=== PATIENT | male | born 1965 | race Caucasian/White ===

== ENCOUNTER 2020-01-09 11:27 | Outpatient (REF) | payer OTHER, SELFPAY ==
--- NOTE | 2020-01-09 12:06 | US_ITS ---
EXAMINATION: US RETROPERITONEAL LIMITED (RENAL ONLY) CLINICAL INFORMATION: Flank pain. COMPARISON: None TECHNIQUE: Real-time imaging of the kidneys. FINDINGS: RIGHT KIDNEY: 12.8 x 5.7 x 7.8 cm (SAG x AP x TRV). The kidney is normal in size, contour, and echogenicity. Renal cortical thickness is normal. No calculi or focal parenchymal lesions. No hydronephrosis. LEFT KIDNEY: 13.5 x 5.8 x 6.2 cm (SAG x AP x TRV). The kidney is normal in size, contour, and echogenicity. Renal cortical thickness is normal. No calculi or focal parenchymal lesions. No hydronephrosis. US/US renal BI IMPRESSION: Unremarkable renal ultrasound.
[2020-01-09 14:29] LABS: MANUAL DIFF FLAG NO
[2020-01-09 14:35] LABS: Basophils Percent Auto 0.3 % (0-2); Eosinophils Absolute Auto 0.2 X10*3/uL (0.0-0.4); Hematocrit 42.8 % (42-52); Hemoglobin 14.2 g/dl (14.0-18.0); Imm Gran Abs Auto 0.04 X10*3/uL (0.00-0.03); Imm Gran Pct Auto 0.4 % (0.0-0.4); Lymphocytes Absolute Auto 2.5 X10*3/uL (1.2-4.9); Lymphocytes Percent Auto 23.3 % (20-40); Mean Corpuscular HGB Conc 33.2 g/dl (31.0-36.0); Mean Corpuscular Hemoglobin 29.5 pg (27.0-33.0); Mean Corpuscular Volume 88.8 fL (80-98); Mean Platelet Volume 11.3 fL (9.4-12.4); Monocytes Absolute Auto 0.6 X10*3/uL (0.1-1.2); Monocytes Percent Auto 5.2 % (2-11); Neutrophils Absolute Auto 7.3 X10*3/uL (2.0-8.3); Neutrophils Percent Auto 68.8 % (45-73); Platelet Count 291 X10*3/uL (160-400); Red Blood Count 4.82 X10*6/uL (4.60-5.80); Red Cell Distribution Width 12.2 % (11.0-16.0); White Blood Count 10.6 X10*3/uL (4.8-10.8)
[2020-01-09 15:12] LABS: Anion Gap 15 (12-20); Blood Urea Nitrogen 13 mg/dL (9-16); Calcium 8.3 mg/dL (8.4-10.2); Carbon Dioxide 26 mmol/L (22-29); Chloride 102 mmol/L (96-108); Estimated Glomerular Filt Rate > 60; Glucose Random 133 mg/dL (60-115); Potassium 3.5 mmol/l (3.3-5.1); Sodium 139 mmol/L (135-145)
== END 2020-01-09 11:28 | disposition home or self-care (01) ==
LOC: HO.HMGCX 11:27
PROVIDERS: PCP Nurse Practitioner Family; Visit Provider Nurse Practitioner Family
DX: R10.9 Unspecified abdominal pain (principal)
CPT/HCPCS: 36415; 76775; 80048; 85025

== ENCOUNTER 2020-02-08 07:22 | Day surgery (SDC) | payer OTHER, SELFPAY ==
[2020-01-30 14:44] VITALS: BMI 41.5
--- NOTE | 2020-02-07 09:21 | HO.ANESPROP2 ---
Documented by User: Meryl Felix 02/14/20 15:32 HPI - Anesthesia Eval Consult details Narrative: 54yo M for Upper Endoscopy with Balloon Dilitation PMFSH Past Medical History Medical History (Updated 02/08/20 @ 18:11 by Cliff Pace MD) GERD (gastroesophageal reflux disease) Hx of chemical exposure Hx of tinnitus NORMA (obstructive sleep apnea) Restrictive lung disease secondary to obesity Surgical History Surgical History History of shoulder surgery Hx of adenoidectomy Social History Social History Smoking Status: Former smoker Substance Use Type: Marijuana Meds Allergies Allergy/AdvReac Type Severity Reaction Status Date / Time No Known Allergies Allergy Verified 02/08/20 07:43 Home Medications Medication Instructions Recorded Confirmed Type cholecalciferol (vitamin D3) 50 50 mcg PO DAILY 12/28/19 01/30/20 History mcg (2,000 unit) tablet Exam Exam Date and Time: February 07, 2020 0921 Height,Weight and Vital Signs: Height 5 ft 11 in Weight 135.171 kg Pertinent Lab Results Pertinent Lab Results: Laboratory Tests 01/09/20 01/09/20 11:46 11:46 WBC 10.6 Hgb 14.2 Hct 42.8 Plt Count 291 Sodium 139 Potassium 3.5 Chloride 102 Carbon Dioxide 26 BUN 13 Creatinine 0.74 Assessment and Plan Assessment Anesthesia Assessment: Chart Reviewed Documented by User: Froilan Rodriguez CRNA 02/08/20 07:56 PMFSH Past Medical History Medical History (Updated 02/08/20 @ 18:11 by Cliff Pace MD) GERD (gastroesophageal reflux disease) Hx of chemical exposure Hx of tinnitus NORMA (obstructive sleep apnea) Restrictive lung disease secondary to obesity Surgical History Surgical History History of shoulder surgery Hx of adenoidectomy Social History Social History Smoking Status: Former smoker Substance Use Type: Marijuana Meds Allergies Allergy/AdvReac Type Severity Reaction Status Date / Time No Known Allergies Allergy Verified 02/08/20 07:43 Home Medications Medication Instructions Recorded Confirmed Type cholecalciferol (vitamin D3) 50 50 mcg PO DAILY 12/28/19 01/30/20 History mcg (2,000 unit) tablet Assessment and Plan Assessment Anesthesia Assessment: Anesthesia Plan Discussed and Chart Reviewed Final Anesthetic Review NPO: Yes ASA Class: III Final Preanesthetic Review: No Changes in Pt Med Stat, Meds/Allgs Chart Reviewed, Consent Obtained/Reviewed and Anes Risks/Benef Reviewed Patient Risk: Intermediate Procedure Risk: Low Anesthetic Plan Anesthetic Plan: MAC: Disposition: Standard PACU
[2020-02-08 07:37] VITALS: BP 138/74; PULSE 60; RESP 20; TEMP 35.7; O2SAT 96
[2020-02-08] MEDS: Lactated Ringers 1,000 ML 100 ML IVCONT (07:54)
--- NOTE | 2020-02-08 08:18 | P.CONAN_ITS ---
FORMERLY [facility], LATER [facility] Past Medical History Medical History GERD (gastroesophageal reflux disease) Hx of chemical exposure Hx of tinnitus NORMA (obstructive sleep apnea) Restrictive lung disease secondary to obesity Surgical History Surgical History History of shoulder surgery Hx of adenoidectomy Social History Social History Are you a primary patient care provider to a significant other at home: No Do you presently have visiting nurse or other home services: No Smoking Status: Former smoker Smoking Quit Date: 2011 Use of substances other than those prescribed or required for medical reasons: Yes Substance Use Type: Marijuana Substance Use Type Other:: Vapes Substance Use Frequency: Occasionally Have you been hit, kicked, punched, or otherwise hurt by someone within the past year? If so, by whom?: No Advance Directives: No Advance Directives Information Provided: No Advance Directives on File: No Recently lost weight without trying: No Meds Allergies Allergy/AdvReac Type Severity Reaction Status Date / Time No Known Allergies Allergy Verified 02/08/20 07:43 Home Medications Medication Instructions Recorded Confirmed Type cholecalciferol (vitamin D3) 50 50 mcg PO DAILY 12/28/19 01/30/20 History mcg (2,000 unit) tablet Exam Exam Date and Time: February 08, 2020 0818 Height,Weight and Vital Signs: Height 5 ft 11 in Weight 135.171 kg Last Vital Signs Temp 96.2 F L 02/08/20 07:37 Pulse 60 02/08/20 07:37 Resp 20 02/08/20 07:37 BP 138/74 02/08/20 07:37 Pulse Ox 96 02/08/20 07:37 Airway Mallampati Class: II TM Dist: >3cm Neck ROM: Full Denture: Upper Heart: RRR Lungs: CTA
--- NOTE | 2020-02-08 08:42 | MHC.SHP ---
Pre-Procedural Eval Section B Chief Complaint: gerd Relevant Social History: Other (specify) (THC) Present Medications: see Short Stay Collaborative assessment Medical History: Significant History (GERD (gastroesophageal reflux disease) Hx of chemical exposure Hx of tinnitus NORMA (obstructive sleep apnea) Restrictive lung disease secondary to obesity) History of Previous Operations: Relevant previous surgery/procedure and date(s) (adenoids) Allergies: Allergies Allergy/AdvReac Type Severity Reaction Status Date / Time No Known Allergies Allergy Verified 02/08/20 07:43 Review of Systems Sugical H&P ROS: Negative: Constitution, Cardiovascular, Respiratory, Neurological, Psychiatric, Hem-Onc, Allergic/Immunologic, Gastrointestinal, Genitourinary, Musculoskeletal, Integumentary, Endocrine and Eyes/Ears/Nose/Throat Exam Surgical H&P Exam: Normal: HEENT, Normal: Heart, Normal: Lungs, Normal: Extremities, Normal: Abdomen, Normal: Skin and Normal: Neurological Plan Diagnosis/Plan: Unchanged I have reviewed the history and physical and performed a pertinent physical examination on my patient. No changes have occurred unless specified.
--- NOTE | 2020-02-08 08:44 | PM.OP ---
Brief Operative Note Date of Service: 02/08/20 Post-op diagnosis: same Procedure: Procedure Description: EGD FLEXIBLE TRANSORAL UPPER GASTROINTESTINAL ENDOSCOPY UPPER ENDOSCOPY Consent: Indications for the procedure and potential complications of bleeding, perforation, reaction to medications and missed diagnosis were discussed with the patient and informed consent was obtained. Instrument: Olympus GIF H 190 J mid size upper endoscope Monitoring: Vital signs and clinical assessment, continuous EKG monitoring, Pulse oximetry, Carbon Dioxide monitoring and blood pressure monitoring were done throughout the procedure. Procedure: The patient was placed in the left lateral decubitis position and pre-procedure medications were administered and a bite block was placed. The endoscope was inserted into the mouth and advanced under direct vision to the third part of duodenum. A careful inspection was made as the upper endoscope was withdrawn including a retroflexed examination of the proximal stomach; Findings and interventions are described below. Findings: Larynx:normal Esophagus: GE junction at 43 cm, diaphragm hiatus at 43 cm, LA grade B esophagitis noted, with erythema at GEJ and singular short linear erosion. 20 mm balloon dilated at LES and UES due to dysphagia and mid esophagus, no tears noted. Stomach: Mild erythema. Grade III flap valve on retroflexed examination of the cardia. V lax which pre disposes to his reflux Duodenum: Normal bulb and descending duodenum, Intervention: Biopsies as noted above, balloon dilation Impression/Findings: esophagitis, prob causing his sx PLAN: 1/ maximize anti acid medication, can add famotidine at night with the PPI during the day 2/ reflux precautions 3/ Surgery is his best option but unfortunately he is unable to do the pH impedance and manometry testing required by surgery Surgeon: Cliff Pace MD Anesthesia: MAC Estimated blood loss (mL): 0 Condition: stable Disposition: PACU
[2020-02-08 09:08] VITALS: BP 114/70; PULSE 84; RESP 16; TEMP 36.4; O2SAT 97
[2020-02-08 09:23] VITALS: BP 124/56; PULSE 63; RESP 13; TEMP 36.4; O2SAT 97
--- NOTE | 2020-02-08 09:51 | HO.POSTANES ---
Post Anesthesia Evaluation Post Anesthesia Evaluation Vital Signs: Vital Signs Temp Pulse Resp BP Pulse Ox 02/08/20 09:23 97.6 F 63 13 124/56 L 97 02/08/20 09:08 97.6 F 84 16 114/70 97 02/08/20 07:37 96.2 F L 60 20 138/74 96 Anesthesia: Monitored Mental Status: Awake Pain Control: Satisfactory Nausea/Vomiting: None Hydration: Adequate Anesthesia-Related Issues: No Anes. Related Issues
== END 2020-02-08 09:51 | disposition home or self-care (01) ==
PROVIDERS: PCP Nurse Practitioner Family; Visit Provider Internal Medicine Gastroenterology
PROC: (CPT 43249; principal; 2020-02-08 08:30)
DX: K21.9 Gastro-esophageal reflux disease without esophagitis (principal); R13.10 Dysphagia, unspecified; K20.90 Esophagitis, unspecified without bleeding; K44.9 Diaphragmatic hernia without obstruction or gangrene; G47.33 Obstructive sleep apnea (adult) (pediatric); J98.4 Other disorders of lung; Z87.891 Personal history of nicotine dependence; E66.9 Obesity, unspecified; F12.90 Cannabis use, unspecified, uncomplicated; Z79.899 Other long term (current) drug therapy
CPT/HCPCS: 43249; 43239; 88305; C1726; J3010

== ENCOUNTER → 2020-04-09 14:26 | Outpatient (BNVA) | payer OTHER, SELFPAY | PROVIDERS: PCP Nurse Practitioner Family; Visit Provider Internal Medicine Gastroenterology ==

== ENCOUNTER 2020-05-11 15:21 | Outpatient (REF) | payer OTHER, SELFPAY ==
--- NOTE | ~2020-05-11 | XR_ITS ---
EXAMINATION: XR KNEE, LEFT CLINICAL INFORMATION: Pain in the left knee COMPARISON: None TECHNIQUE: Four views of the left knee. FINDINGS: There is no fracture. No dislocation. No joint effusion. There is mild joint narrowing of the medial femoral tibial joint. Minimal periventricular spur of the tibia at the lateral femoral tibial joint and the lateral side of the joint. Patellofemoral joint is normal. No bone erosions. No soft tissue calcification. XR/XR knee LT 4V IMPRESSION: 1. No acute abnormality. 2. 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
== END 2020-05-11 15:22 | disposition home or self-care (01) ==
LOC: HO.HMGCX 15:21
PROVIDERS: PCP Nurse Practitioner Family; Visit Provider Hospitalist
DX: M25.562 Pain in left knee (principal)
CPT/HCPCS: 73564

== ENCOUNTER 2020-08-05 03:53 | Inpatient (IN) | payer OTHER, SELFPAY ==
[2020-08-05] VITALS (8 sets, daily range): BP systolic 116–149; BP diastolic 47–76; PULSE 65–100; RESP 10–23; TEMP 36.6–37.2; O2SAT 90–97; BMI 42.0
--- NOTE | ~2020-08-05 | CT_ITS ---
EXAMINATION: CT CHEST WITHOUT CONTRAST CT ABDOMEN AND PELVIS WITHOUT CONTRAST CLINICAL INFORMATION: hematemesis, r/o boerhaave COMPARISON: No pertinent prior studies are available for comparison. TECHNIQUE: Multidetector volumetric imaging was performed from the thoracic inlet through the pubic symphysis without intravenous contrast. Sagittal and coronal images were reformatted. This CT examination was performed using dose optimization techniques as appropriate, variously including the following: *Automated exposure control *Adjustment of mA and/or kV according to patient size (this includes techniques or standardized protocols for targeted exams where dose is matched to indication/reason for exam; i.e. extremities or head) *Use of iterative reconstruction technique DOSE: 1693 mGy-cm FINDINGS: -CHEST- LUNG: Patchy areas of airspace consolidation are present in the right long a batwing distribution surrounding the central bronchovascular structures. Central airways and bronchi are clear. No bronchiectasis. Left lung is clear. No discrete pulmonary nodules. No interstitial opacities. MEDIASTINUM: The mediastinum in normal. The central vascular structures are unremarkable. No hilar or mediastinal lymphadenopathy. PERICARDIUM/PLEURA: No significant effusion. No pleural mass or thickening. CHEST WALL/AXILLA: There is a small amount of fluid within the esophagus. No appreciable esophageal wall thickening. No surrounding mediastinal fluid or gas to indicate esophageal injury. -ABDOMEN/PELVIS- LIVER, GALLBLADDER, BILIARY TREE: Relative hypoattenuation of the hepatic parenchyma is consistent with steatosis. Focal sparing is noted on the gallbladder fossa. Mild hepatomegaly. Liver is normal in contour. No biliary ductal dilatation . PANCREAS: Normal; no mass or surrounding fluid. SPLEEN: Normal size. No focal lesion. ADRENAL GLANDS: There is a 3.8 cm left adrenal lesion with macroscopic fat, most consistent with a myolipoma. A 4.9 cm mixed fat and soft tissue density lesion is present within the right adrenal gland, also consistent with a myolipoma. KIDNEYS AND URETERS: At the medial margin of the right lower renal pole, there is an exophytic 1.7 cm nodule which is the same density as the renal cortex and warrants further evaluation. The kidneys are normal in size, shape, and attenuation. No hydronephrosis, hydroureter, or calculi seen. No perinephric stranding. BLADDER: Unremarkable. GASTROINTESTINAL TRACT: Stomach, small bowel, and colon are normal in caliber. No bowel wall thickening or surrounding inflammatory changes. Appendix is normal. No intraperitoneal free fluid or free air. ABDOMINAL WALL: No significant hernia is appreciated. VASCULATURE: Atherosclerotic calcifications are present in the iliac arteries. No aneurysmal dilatation. LYMPH NODES: No lymphadenopathy. . PELVIC VISCERA: Small dystrophic central calcifications. Prostate gland is normal in size. OSSEUS STRUCTURES: Mild to moderate degenerative disc disease in the lumbar spine. No acute fracture or malalignment. Mild osteoarthritis in the hips. Sclerotic foci within the trochanteric regions of the femur is most likely correspond to bone islands. CT/CT abdomen pelvis wo con IMPRESSION: Patchy multifocal airspace opacities throughout the right lung in a central distribution, potentially corresponding to pneumonia. A unilateral cause of pulmonary alveolar hemorrhage could also produce this appearance. No appreciable intraluminal opacities are identified within the bronchi. No evidence of Boerhaave's syndrome. Trace fluid within the esophagus. Hepatic steatosis. Bilateral adrenal myelolipomas, measuring up to 4.9 cm in diameter on the right. Surgical consultation is advised based on size. Consider biochemical lab evaluation for functional status and pheochromocytoma prior to potential resection. A 1.7 cm exophytic intermediate density right renal lesion. Recommend follow-up MRI with and without contrast for further assessment.
--- NOTE | 2020-08-05 04:33 | ECG_ITS ---
Test Reason : ABD PAIN Blood Pressure : / mmHG Vent. Rate : 088 BPM Atrial Rate : 088 BPM P-R Int : 152 ms QRS Dur : 112 ms QT Int : 374 ms P-R-T Axes : 048 048 044 degrees QTc Int : 452 ms Normal sinus rhythm Incomplete right bundle branch block Borderline ECG No previous ECGs available Referred By: Sinai Barnhart Electronically Signed By:Gamal Parkinson
--- NOTE | 2020-08-05 04:38 | ED_ITS ---
HPI - General Adult General Chief complaint: GI Bleed Stated complaint: Abdominal Pain/Vomiting Blood Time Seen by Provider: 08/05/20 04:27 Source: patient Mode of arrival: ambulatory Limitations: no limitations History of Present Illness HPI narrative: patient comes emergency room complaining of abdominal pressure and vomiting blood and coughing blood. Patient states that around midnight he started vomiting blood. Patient states he has never vomited blood before. Patient is not sure if he is coughing blood or vomiting blood. patient denies alcohol abuse Related Data Previous Rx's Medication Instructions Recorded famotidine 40 mg tablet 40 mg PO BEDTIME #90 tab 04/09/20 sucralfate 100 mg/mL oral 10 ml PO BID #2 bottle 04/09/20 suspension omeprazole 40 mg capsule,delayed 40 mg PO DAILY #60 cap 04/11/20 release sucralfate 1 gram tablet 1 g PO BID #60 tab 07/06/20 cholecalciferol (vitamin D3) 50 50 mcg PO DAILY #30 cap 08/04/20 mcg (2,000 unit) capsule Allergies Allergy/AdvReac Type Severity Reaction Status Date / Time No Known Allergies Allergy Verified 07/23/20 15:06 Review of Systems Review of Systems: Constitutional : No Weight loss, No Fever, No Chills, No Night Sweats, No Fatigue, No Malaise ENT/Mouth : No Hearing loss, No Ear Pain, No Nasal Congestion, No Sinus Pain, No Hoarseness, No sore throat, No Rhinorrhea, No Swallowing Difficulty Eyes: No Eye Pain, No Swelling, No Redness, No Foreign Body, No Discharge, No Vision Changes Cardiovascular : No Chest Pain, No SOB, No Dyspnea on Exertion, No Orthopnea, No Edema, No Palpitations Respiratory : Coughing blood?, No Sputum, No Wheezing, No Smoke Exposure, No Dyspnea Gastrointestinal : No Nausea, No Vomiting, No Diarrhea, No Constipation, No abdominal Pain, hematemesis Genitourinary : no irregular bleeding, No Dysuria, No Urinary Frequency, No Hematuria, No Urinary Incontinence, No Urgency, No Flank Pain, No Urinary Flow Changes, No Hesitancy Musculoskeletal : No joint pain, No Myalgias, No Joint Swelling Skin : No Skin Lesions, No rash Neuro : No Weakness, No Numbness, No Paresthesias, No Loss of Consciousness, No Dizziness, No Headache Psych : No Anxiety/Panic, No Depression, No SI/HI/AH/VH, No Social Issues, Heme/Lymph: No Bruising, No Bleeding,No Lymphadenopathy Endocrine : No Polyuria, No Polydipsia, No Temperature Intolerance [facility] Past Medical History Medical History GERD (gastroesophageal reflux disease) Hx of chemical exposure Hx of tinnitus NORMA (obstructive sleep apnea) Restrictive lung disease secondary to obesity Surgical History History of esophagogastroduodenoscopy (EGD) History of shoulder surgery Hx of adenoidectomy Social History Social History Household Members: Spouse and Children Are you a primary school childcare attendant to a significant other at home: No Do you presently have visiting nurse or other home services: No Alcohol intake: current Alcohol intake frequency: holidays/special occasions only Alcohol type: beer Patient Tobacco Use Status: Never used Tobacco Use of substances other than those prescribed or required for medical reasons: Yes Substance Use Type: Marijuana Substance Use Frequency: Daily Advance Directives: No Physical Exam Vital Signs: Vital Signs: Last Vital Signs Temp 98.9 F 08/05/20 06:44 Pulse 91 08/05/20 06:44 Resp 16 08/05/20 06:44 BP 127/58 L 08/05/20 06:44 Pulse Ox 96 08/05/20 06:44 Body Mass Index 42.0 Appearance: Alert. Oriented X3. looks very uncomfortable Eyes: Pupils equal, round and reactive to light. ENT: Pharynx normal. Neck: Normal inspection. Neck supple. No lymph nodes noted. No crepitus CVS: Normal heart rate and rhythm. Pulses normal. Normal S1 and S2, no crepitus and chest on palpation Respiratory: No respiratory distress. oxygen saturation 90 to 92% on room air Breath sounds normal. No Wheezing. No rales Abdomen: Soft and nontender. No rigidity. No distention. Skin: Skin warm and dry. Normal skin color. Normal skin turgor. Extremities: No lower extremity edema. No lower extremity edema. No Lacerations. No Rash Neuro: Oriented X 3. No motor deficit. No sensory deficit. Moving all extermities. No slurred speech. Course Course Course Narrative: initially it was unclear if pt had a hemoptysis vs hematemesis. CT shows a lillian multifocal infiltrate in R lung, likely causing alveolar hemorrhage. Incidentally, bilateral adran myelolipomas were seen. Recs per radiology: surgery consult and work up for pheocromocytoma. At this time, pt has not symptoms related to pheochromocytoma. Initially pt was being treated for possible GI Bleed. Gi bleed is less likely. Pt's O2 on room air is 90%, 96% on Room air. pt already received one dose of ceftriaxone. I discussed the pt with Dr. Frankel, pt admitted Medical Decision Making Lab Data Result diagrams: 08/05/20 04:44 08/05/20 05:31 Labs: Lab Results 08/05/20 08/05/20 08/05/20 Range/Units 04:44 04:45 04:45 WBC 22.5 H (4.8-10.8) X10*3/uL RBC 5.09 (4.60-5.80) X10*6/uL Hgb 15.1 (14.0-18.0) g/dl Hct 45.3 (42-52) % MCV 89.0 (80-98) fL MCH 29.7 (27.0-33.0) pg MCHC 33.3 (31.0-36.0) g/dl RDW 12.5 (11.0-16.0) % Plt Count 267 (160-400) X10*3/uL MPV 10.4 (9.4-12.4) fL Immature Gran % (Auto) 0.5 H (0.0-0.4) % Neut % (Auto) 85.2 H (45-73) % Lymph % (Auto) 8.4 L (20-40) % [place] % (Auto) 5.2 (2-11) % Eos % (Auto) 0.4 (0-4) % Baso % (Auto) 0.3 (0-2) % Lymph # (Auto) 1.9 (1.2-4.9) X10*3/uL [place] # (Auto) 1.2 (0.1-1.2) X10*3/uL Eos # (Auto) 0.1 (0.0-0.4) X10*3/uL Baso # (Auto) 0.1 (0.0-0.2) X10*3/uL Abs Immat Gran (auto) 0.12 H (0.00-0.03) X10*3/uL Absolute Neuts (auto) 19.2 H (2.0-8.3) X10*3/uL Absolute Nucleated RBC 0.000 (0.0-0.012) X10*3/uL Nucleated RBC % (auto) 0.0 (0.0-0.2) /100WBC PT (10.8-13.0) SEC INR (0.9-1.1) Sodium (135-145) mmol/L Potassium (3.3-5.1) mmol/L Chloride (96-108) mmol/L Carbon Dioxide (22-29) mmol/L Anion Gap (12-20) BUN (9-16) mg/dL Creatinine (0.5-1.4) mg/dL Estim Creat Clear Calc Estimated GFR Random Glucose (60-115) mg/dL Lactic Acid 2.5 H* (0.5-2.0) mmol/L Calcium (8.4-10.2) mg/dL Total Bilirubin (0.0-1.0) mg/dL Direct Bilirubin (0.0-0.5) mg/dL AST (5-37) U/L ALT (0-40) U/L Alkaline Phosphatase (39-117) U/L Total Protein (6.5-8.0) g/dL Albumin (3.5-5.0) g/dL Lipase (8-78) U/L Urine Color YELLOW Urine Appearance CLEAR Urine pH 6.0 (5.0-8.0) Ur Specific [place] 1.020 (1.005-1.025) Urine Protein NEG (NEG-TRACE) MG/DL Urine Glucose (UA) NEG (NEG) MG/DL Urine Ketones NEG (NEG) MG/DL Urine Blood NEG (NEG) Urine Nitrite NEG (NEG) Ur Leukocyte Esterase NEG (NEG) Gastric Occult Blood (NEG) COVID-19 (DALIA) (Negative) COVID-19 Clin Com Blood Type Antibody Screen 08/05/20 08/05/20 08/05/20 Range/Units 04:45 04:49 05:00 WBC (4.8-10.8) X10*3/uL RBC (4.60-5.80) X10*6/uL Hgb (14.0-18.0) g/dl Hct (42-52) % MCV (80-98) fL MCH (27.0-33.0) pg MCHC (31.0-36.0) g/dl RDW (11.0-16.0) % Plt Count (160-400) X10*3/uL MPV (9.4-12.4) fL Immature Gran % (Auto) (0.0-0.4) % Neut % (Auto) (45-73) % Lymph % (Auto) (20-40) % [place] % (Auto) (2-11) % Eos % (Auto) (0-4) % Baso % (Auto) (0-2) % Lymph # (Auto) (1.2-4.9) X10*3/uL [place] # (Auto) (0.1-1.2) X10*3/uL Eos # (Auto) (0.0-0.4) X10*3/uL Baso # (Auto) (0.0-0.2) X10*3/uL Abs Immat Gran (auto) (0.00-0.03) X10*3/uL Absolute Neuts (auto) (2.0-8.3) X10*3/uL Absolute Nucleated RBC (0.0-0.012) X10*3/uL Nucleated RBC % (auto) (0.0-0.2) /100WBC PT 12.2 (10.8-13.0) SEC INR 1.0 (0.9-1.1) Sodium (135-145) mmol/L Potassium (3.3-5.1) mmol/L Chloride (96-108) mmol/L Carbon Dioxide (22-29) mmol/L Anion Gap (12-20) BUN (9-16) mg/dL Creatinine (0.5-1.4) mg/dL Estim Creat Clear Calc Estimated GFR Random Glucose (60-115) mg/dL Lactic Acid (0.5-2.0) mmol/L Calcium (8.4-10.2) mg/dL Total Bilirubin (0.0-1.0) mg/dL Direct Bilirubin (0.0-0.5) mg/dL AST (5-37) U/L ALT (0-40) U/L Alkaline Phosphatase (39-117) U/L Total Protein (6.5-8.0) g/dL Albumin (3.5-5.0) g/dL Lipase (8-78) U/L Urine Color Urine Appearance Urine pH (5.0-8.0) Ur Specific [place] (1.005-1.025) Urine Protein (NEG-TRACE) MG/DL Urine Glucose (UA) (NEG) MG/DL Urine Ketones (NEG) MG/DL Urine Blood (NEG) Urine Nitrite (NEG) Ur Leukocyte Esterase (NEG) Gastric Occult Blood POS (NEG) COVID-19 (DALIA) (Negative) COVID-19 Clin Com Blood Type Cancelled Antibody Screen Cancelled 08/05/20 08/05/20 08/05/20 Range/Units 05:31 05:31 05:51 WBC (4.8-10.8) X10*3/uL RBC (4.60-5.80) X10*6/uL Hgb (14.0-18.0) g/dl Hct (42-52) % MCV (80-98) fL MCH (27.0-33.0) pg MCHC (31.0-36.0) g/dl RDW (11.0-16.0) % Plt Count (160-400) X10*3/uL MPV (9.4-12.4) fL Immature Gran % (Auto) (0.0-0.4) % Neut % (Auto) (45-73) % Lymph % (Auto) (20-40) % [place] % (Auto) (2-11) % Eos % (Auto) (0-4) % Baso % (Auto) (0-2) % Lymph # (Auto) (1.2-4.9) X10*3/uL [place] # (Auto) (0.1-1.2) X10*3/uL Eos # (Auto) (0.0-0.4) X10*3/uL Baso # (Auto) (0.0-0.2) X10*3/uL Abs Immat Gran (auto) (0.00-0.03) X10*3/uL Absolute Neuts (auto) (2.0-8.3) X10*3/uL Absolute Nucleated RBC (0.0-0.012) X10*3/uL Nucleated RBC % (auto) (0.0-0.2) /100WBC PT (10.8-13.0) SEC INR (0.9-1.1) Sodium 141 (135-145) mmol/L Potassium 3.9 (3.3-5.1) mmol/L Chloride 106 (96-108) mmol/L Carbon Dioxide 28 (22-29) mmol/L Anion Gap 11 L (12-20) BUN 17 H (9-16) mg/dL Creatinine 0.78 (0.5-1.4) mg/dL Estim Creat Clear Calc 154.5 Estimated GFR > 60 Random Glucose 135 H (60-115) mg/dL Lactic Acid (0.5-2.0) mmol/L Calcium 8.6 (8.4-10.2) mg/dL Total Bilirubin 0.9 (0.0-1.0) mg/dL Direct Bilirubin 0.3 (0.0-0.5) mg/dL AST 10 (5-37) U/L ALT 17 (0-40) U/L Alkaline Phosphatase 92 (39-117) U/L Total Protein 6.3 L (6.5-8.0) g/dL Albumin 4.0 (3.5-5.0) g/dL Lipase 12 (8-78) U/L Urine Color Urine Appearance Urine pH (5.0-8.0) Ur Specific [place] (1.005-1.025) Urine Protein (NEG-TRACE) MG/DL Urine Glucose (UA) (NEG) MG/DL Urine Ketones (NEG) MG/DL Urine Blood (NEG) Urine Nitrite (NEG) Ur Leukocyte Esterase (NEG) Gastric Occult Blood (NEG) COVID-19 (DALIA) Negative (Negative) COVID-19 Clin Com See Note Blood Type O Positive Antibody Screen NEGATIVE Imaging Data chest and abdomen CT: Radiologist's impression: INDINGS: -CHEST- LUNG: Patchy areas of airspace consolidation are present in the right long a batwing distribution surrounding the central bronchovascular structures. Central airways and bronchi are clear. No bronchiectasis. Left lung is clear. No discrete pulmonary nodules. No interstitial opacities. MEDIASTINUM: The mediastinum in normal. The central vascular structures are unremarkable. No hilar or mediastinal lymphadenopathy. PERICARDIUM/PLEURA: No significant effusion. No pleural mass or thickening. CHEST WALL/AXILLA: There is a small amount of fluid within the esophagus. No appreciable esophageal wall thickening. No surrounding mediastinal fluid or gas to indicate esophageal injury. -ABDOMEN/PELVIS- LIVER, GALLBLADDER, BILIARY TREE: Relative hypoattenuation of the hepatic parenchyma is consistent with steatosis. Focal sparing is noted on the gallbladder fossa. Mild hepatomegaly. Liver is normal in contour. No biliary ductal dilatation . PANCREAS: Normal; no mass or surrounding fluid. SPLEEN: Normal size. No focal lesion. ADRENAL GLANDS: There is a 3.8 cm left adrenal lesion with macroscopic fat, most consistent with a myolipoma. A 4.9 cm mixed fat and soft tissue density lesion is present within the right adrenal gland, also consistent with a myolipoma. KIDNEYS AND URETERS: At the medial margin of the right lower renal pole, there is an exophytic 1.7 cm nodule which is the same density as the renal cortex and warrants further evaluation. The kidneys are normal in size, shape, and attenuation. No hydronephrosis, hydroureter, or calculi seen. No perinephric stranding. BLADDER: Unremarkable. GASTROINTESTINAL TRACT: Stomach, small bowel, and colon are normal in caliber. No bowel wall thickening or surrounding inflammatory changes. Appendix is normal. No intraperitoneal free fluid or free air. ABDOMINAL WALL: No significant hernia is appreciated. VASCULATURE: Atherosclerotic calcifications are present in the iliac arteries. No aneurysmal dilatation. LYMPH NODES: No lymphadenopathy. . PELVIC VISCERA: Small dystrophic central calcifications. Prostate gland is normal in size. OSSEUS STRUCTURES: Mild to moderate degenerative disc disease in the lumbar spine. No acute fracture or malalignment. Mild osteoarthritis in the hips. Sclerotic foci within the trochanteric regions of the femur is most likely correspond to bone islands. CT/CT chest wo con IMPRESSION: Patchy multifocal airspace opacities throughout the right lung in a central distribution, potentially corresponding to pneumonia. A unilateral cause of pulmonary alveolar hemorrhage could also produce this appearance. No appreciable intraluminal opacities are identified within the bronchi. No evidence of Boerhaave's syndrome. Trace fluid within the esophagus. Hepatic steatosis. Bilateral adrenal myelolipomas, measuring up to 4.9 cm in diameter on the right. Surgical consultation is advised based on size. Consider biochemical lab evaluation for functional status and pheochromocytoma prior to potential resection. A 1.7 cm exophytic intermediate density right renal lesion. Recommend follow-up MRI with and without contrast for further assessment. ECG Data Attestation: I personally reviewed and interpreted this ECG as follows: ( normal sinus rhythm, heart rate 80, no C7 depression of the patient, noted inversion, QTC 452, incomplete right bundle-branch block) Critical Care Time Critical Care Time Total Critical Care Time: 60 Discharge Plan Discharge Clinical Impression: Pulmonary alveolar hemorrhage, Pneumonia Patient Disposition: Admitted As Inpatient Prescriptions: No Action omeprazole 40 mg capsule,delayed release(DR/EC) 40 mg PO DAILY Qty: 60 RF: 4 sucralfate 1 gram tablet 1 g PO BID Qty: 60 RF: 3 cholecalciferol (vitamin D3) 50 mcg (2,000 unit) capsule 50 mcg PO DAILY Qty: 30 RF: 3 famotidine 40 mg tablet 40 mg PO BEDTIME Qty: 90 RF: 2 sucralfate 100 mg/mL suspension 10 ml PO BID Qty: 2 RF: 4
[2020-08-05 04:49] LABS: Basophils Absolute Auto 0.1 X10*3/uL (0.0-0.2); Basophils Percent Auto 0.3 % (0-2); Eosinophils Absolute Auto 0.1 X10*3/uL (0.0-0.4); Eosinophils Percent Auto 0.4 % (0-4); Hematocrit 45.3 % (42-52); Hemoglobin 15.1 g/dl (14.0-18.0); Imm Gran Abs Auto 0.12 X10*3/uL (0.00-0.03); Imm Gran Pct Auto 0.5 % (0.0-0.4); Lymphocytes Absolute Auto 1.9 X10*3/uL (1.2-4.9); Lymphocytes Percent Auto 8.4 % (20-40); Mean Corpuscular HGB Conc 33.3 g/dl (31.0-36.0); Mean Corpuscular Hemoglobin 29.7 pg (27.0-33.0); Mean Platelet Volume 10.4 fL (9.4-12.4); Monocytes Absolute Auto 1.2 X10*3/uL (0.1-1.2); Monocytes Percent Auto 5.2 % (2-11); Neutrophils Absolute Auto 19.2 X10*3/uL (2.0-8.3); Neutrophils Percent Auto 85.2 % (45-73); Platelet Count 267 X10*3/uL (160-400); Red Blood Count 5.09 X10*6/uL (4.60-5.80); Red Cell Distribution Width 12.5 % (11.0-16.0); White Blood Count 22.5 X10*3/uL (4.8-10.8)
[2020-08-05 04:50] LABS: MANUAL DIFF FLAG NO
[2020-08-05 04:50] LABS: Glucose Urine UA NEG (NEG); Leukocyte Esterase Urine NEG (NEG); Nitrite Urine NEG (NEG); Urine Blood NEG (NEG); Urine Ketones NEG (NEG); Urine Protein NEG (NEG-TRACE)
[2020-08-05 04:51] LABS: Appearance Urine CLEAR; Color Urine YELLOW
[2020-08-05 05:09] LABS: GASOB Int Neg Ctl Valid YES; GASOB Int Pos Ctl Valid YES; Occult Blood Gastric POS (NEG)
[2020-08-05] MEDS: 0.9 % Sodium Chloride 1,000 ML 999 ML IVCONT ×2 (05:18→05:19)
[2020-08-05] MEDS: Octreotide Acetate 100 MCG/ML AMPUL 50 MCG IVPUSH (05:19)
[2020-08-05] MEDS: ondansetron HCL 4 MG/2 ML VIAL IVPUSH (05:19)
[2020-08-05] MEDS: Pantoprazole Sodium 40 MG/10 ML VIAL 80 MG IVPUSH (05:19)
[2020-08-05 05:21] LABS: Prothrombin Time 12.2 SEC (10.8-13.0)
[2020-08-05 05:23] LABS: Lactic Acid 2.5 mmol/L (0.5-2.0)
[2020-08-05 06:04] LABS: Alanine Aminotransferase 17 U/L (0-40); Alkaline Phosphatase 92 U/L (39-117); Anion Gap 11 (12-20); Aspartate Amino Transferase 10 U/L (5-37); Bilirubin Direct 0.3 mg/dL (0.0-0.5); Bilirubin Total 0.9 mg/dL (0.0-1.0); Blood Urea Nitrogen 17 mg/dL (9-16); Calcium 8.6 mg/dL (8.4-10.2); Carbon Dioxide 28 mmol/L (22-29); Chloride 106 mmol/L (96-108); Creatinine Clr Calc Pharmacy 154.5; Estimated Glomerular Filt Rate > 60; Glucose Random 135 mg/dL (60-115); Lipase 12 U/L (8-78); Potassium 3.9 mmol/L (3.3-5.1); Sodium 141 mmol/L (135-145); Total Protein 6.3 g/dL (6.5-8.0)
[2020-08-05] MEDS: cefTRIAXone sodium 1 GM in 0.9 % Sodium Chloride 50 ML IV (06:06)
[2020-08-05 06:12] LABS: COVID-19 Test Negative (Negative); IDNOW Serial# 9DD0AD1C
--- NOTE | 2020-08-05 06:25 | PC.NURSE ---
PT REPORTS HE WOKE IN THE MIDDLE OF THE NIGHT/2AM VOMITING BLOOD. PT WAS IN A SUPINE POSITION IN BED WHEN HE BEGAN VOMITING. INSTRUCTED HIM TO MOVE TO THE COUCH, SO HE WOULD BE IN AN UPRIGHT POSITION. PT VOMITED RAFIA BLOOD. PT COMPLAINING OF UPPER/MID ABDOMINAL PAIN ANF FEELING OF REFLUX. PT COMPLAINING THAT HE FEELS COLD. PT VOMITED WHILE IN ER APROX 200CC EMESIS THAT LOOKED LIKE MOSTLY MUCUS WITH SMALL AMOUNT OF BLOOD. PT FEELING LESS NAUSEOUS FOLLOWING IV MEDICATIONS. PT'S SPO2 90% FOR AT LEAST 1 HOUR WITH A GOOD CORRESPONDING WAVE PLETH. PT PLACED ON 2 LPM O2 VIA NC AND SPO2 IMPROVED TO 96%. PT NEVER PALE OR DIAPHORETIC. AIRWAY PATENT AND PT SPEAKING IN FULL SENTENCES.
[2020-08-05] MEDS: metroNIDAZOLE/NS 500 MG/100 ML PIGGYBACK 100 MG IV (06:47)
[2020-08-05 06:59] LABS: Reflex Lactate? Lactic Acid Added
--- NOTE | 2020-08-05 08:06 | PC.NURSE ---
this rn aware of pt refusing lab draw
--- NOTE | 2020-08-05 08:08 | PC.NURSE ---
Patient refused blood work
--- NOTE | 2020-08-05 08:32 | PM.IMHP ---
History of Present Illness Date of Service: 08/05/20 Chief Complaint: Vomiting blood, cough blood 55-year-old male with severe esophagitis coming to the ED complaining of vomiting blood and coughing up blood. He says this started around midnight and had 6-7 episodes. He also describes some abdominal discomfort for. No blood in the stool. He has not had anything like this in the past. Workup in the emergency room has revealed normal hemoglobin, however WBC is very high. He had a CT scan of the abdomen and pelvis as well as the chest and shows pulmonary infiltrate with concern of possible alveolar hemorrhage or PNA. He is not hypoxic. He said that he had a mild episode when he was done in the emergency room but for several hours now he has not had any further episode of bleeding. Review of Systems Review of Systems: Gen: no fever Resp: no sob, no cough CV: no chest, no MCKEON, no leg edema GI: some abd discomfort, vomitting blood Neuro: No confusion Yes all other systems are reviewed and are negative [facility] Medical History GERD (gastroesophageal reflux disease) Hx of chemical exposure Hx of tinnitus NORMA (obstructive sleep apnea) Restrictive lung disease secondary to obesity Surgical History History of esophagogastroduodenoscopy (EGD) History of shoulder surgery Hx of adenoidectomy Social History Household Members: Spouse and Children Are you a primary personal care home administrator to a significant other at home: No Do you presently have visiting nurse or other home services: No Alcohol intake: current Alcohol intake frequency: holidays/special occasions only Alcohol type: beer Patient Tobacco Use Status: Never used Tobacco Use of substances other than those prescribed or required for medical reasons: Yes Substance Use Type: Marijuana Substance Use Frequency: Daily Advance Directives: No Meds Allergies Allergy/AdvReac Type Severity Reaction Status Date / Time No Known Allergies Allergy Verified 07/23/20 15:06 Physical Exam Vital Signs and Narrative: Vital Signs: Last Vital Signs Temp 98.9 F 08/05/20 06:44 Pulse 100 08/05/20 07:35 Resp 18 08/05/20 07:35 BP 119/62 08/05/20 07:35 Pulse Ox 96 08/05/20 07:35 Body Mass Index 42.0 Const: General: cooperative and comfortable Orientation/consciousness: patient oriented x3 HENMT: Head: Yes normal to inspection Ears: hearing grossly normal bilaterally Eyes: General: appearance normal, both eyes and all related structures Neck: Yes full ROM and Yes supple Chest: Chest palpation & inspection: normal inspection of the chest Cardio: Jugular venous distension: no JVD Rate: regular rate Heart sounds: S1 normal heart sound present and S2 normal heart sound present GI: Inspection: Yes normal to inspection Palpation (GI): Soft to palpation Percussion: Yes normal to percussion Skin: General skin exam: no rashes or lesions noted Neuro: General: patient oriented x3 Motor exam (neuro): 5/5 motor strength present throughout Psych: Judgement: Good judgement present (Psych) and Fair judgement present (Psych) Results Labs CBC and Chem 7: 08/05/20 08:47 08/05/20 05:31 Labs: Laboratory Results - last 24 hr 08/05/20 08/05/20 08/05/20 04:44 04:45 04:45 MCV 89.0 MCH 29.7 MCHC 33.3 RDW 12.5 Plt Count 267 MPV 10.4 Immature Gran % (Auto) 0.5 H Neut % (Auto) 85.2 H Lymph % (Auto) 8.4 L [place] % (Auto) 5.2 Eos % (Auto) 0.4 Baso % (Auto) 0.3 Lymph # (Auto) 1.9 [place] # (Auto) 1.2 Eos # (Auto) 0.1 Baso # (Auto) 0.1 Abs Immat Gran (auto) 0.12 H Absolute Neuts (auto) 19.2 H Absolute Nucleated RBC 0.000 Nucleated RBC % (auto) 0.0 PT INR Anion Gap Estim Creat Clear Calc Estimated GFR Random Glucose Lactic Acid 2.5 H* Calcium Total Bilirubin Direct Bilirubin AST ALT Alkaline Phosphatase Total Protein Albumin Lipase Urine Color YELLOW Urine Appearance CLEAR Urine pH 6.0 Ur Specific [place] 1.020 Urine Protein NEG Urine Glucose (UA) NEG Urine Ketones NEG Urine Blood NEG Urine Nitrite NEG Ur Leukocyte Esterase NEG Gastric Occult Blood COVID-19 (DALIA) COVID-19 Clin Com Blood Type Antibody Screen 08/05/20 08/05/20 08/05/20 04:45 04:49 05:00 MCV MCH MCHC RDW Plt Count MPV Immature Gran % (Auto) Neut % (Auto) Lymph % (Auto) [place] % (Auto) Eos % (Auto) Baso % (Auto) Lymph # (Auto) [place] # (Auto) Eos # (Auto) Baso # (Auto) Abs Immat Gran (auto) Absolute Neuts (auto) Absolute Nucleated RBC Nucleated RBC % (auto) PT 12.2 INR 1.0 Anion Gap Estim Creat Clear Calc Estimated GFR Random Glucose Lactic Acid Calcium Total Bilirubin Direct Bilirubin AST ALT Alkaline Phosphatase Total Protein Albumin Lipase Urine Color Urine Appearance Urine pH Ur Specific [place] Urine Protein Urine Glucose (UA) Urine Ketones Urine Blood Urine Nitrite Ur Leukocyte Esterase Gastric Occult Blood POS COVID-19 (DALIA) COVID-19 Clin Com Blood Type Cancelled Antibody Screen Cancelled 08/05/20 08/05/20 08/05/20 05:31 05:31 05:51 MCV MCH MCHC RDW Plt Count MPV Immature Gran % (Auto) Neut % (Auto) Lymph % (Auto) [place] % (Auto) Eos % (Auto) Baso % (Auto) Lymph # (Auto) [place] # (Auto) Eos # (Auto) Baso # (Auto) Abs Immat Gran (auto) Absolute Neuts (auto) Absolute Nucleated RBC Nucleated RBC % (auto) PT INR Anion Gap 11 L Estim Creat Clear Calc 154.5 Estimated GFR > 60 Random Glucose 135 H Lactic Acid Calcium 8.6 Total Bilirubin 0.9 Direct Bilirubin 0.3 AST 10 ALT 17 Alkaline Phosphatase 92 Total Protein 6.3 L Albumin 4.0 Lipase 12 Urine Color Urine Appearance Urine pH Ur Specific [place] Urine Protein Urine Glucose (UA) Urine Ketones Urine Blood Urine Nitrite Ur Leukocyte Esterase Gastric Occult Blood COVID-19 (DALIA) Negative COVID-19 Clin Com See Note Blood Type O Positive Antibody Screen NEGATIVE Imaging Radiologist's Impressions: Impressions Abdomen/Pelvis CT 08/05/20 04:33 IMPRESSION: Patchy multifocal airspace opacities throughout the right lung in a central distribution, potentially corresponding to pneumonia. A unilateral cause of pulmonary alveolar hemorrhage could also produce this appearance. No appreciable intraluminal opacities are identified within the bronchi. No evidence of Boerhaave's syndrome. Trace fluid within the esophagus. Hepatic steatosis. Bilateral adrenal myelolipomas, measuring up to 4.9 cm in diameter on the right. Surgical consultation is advised based on size. Consider biochemical lab evaluation for functional status and pheochromocytoma prior to potential resection. A 1.7 cm exophytic intermediate density right renal lesion. Recommend follow-up MRI with and without contrast for further assessment. Chest CT 08/05/20 04:33 IMPRESSION: Patchy multifocal airspace opacities throughout the right lung in a central distribution, potentially corresponding to pneumonia. A unilateral cause of pulmonary alveolar hemorrhage could also produce this appearance. No appreciable intraluminal opacities are identified within the bronchi. No evidence of Boerhaave's syndrome. Trace fluid within the esophagus. Hepatic steatosis. Bilateral adrenal myelolipomas, measuring up to 4.9 cm in diameter on the right. Surgical consultation is advised based on size. Consider biochemical lab evaluation for functional status and pheochromocytoma prior to potential resection. A 1.7 cm exophytic intermediate density right renal lesion. Recommend follow-up MRI with and without contrast for further assessment. Assessment and Plan (1) Pulmonary alveolar hemorrhage: Status: Acute 55 year male who is morbidly obese and presenting with self report of hemoptysis/hematemeis. CT shows infiltrate that could be pulmonary infiltrates or alveolar hemorrage 1/Hemoptysis vs Hematesmesis -heck Serial H/H -GI an Pulmonary eval for EGD vs Bronch -IV PPI 2. Pulmonary infiltrate PNA vs Alveolar Hemorrage and given increase WBC, start empiric Abx 3. GERD/Esophagitis--IV PPI, GI consult as yuri 4. Obesity- advise weight loss. 5. Adrenal lesions--MRI for further evaluation (2) Pneumonia: Status: Acute 55/ year male w Quality Stroke Does the patient have a stroke diagnosis?: No VTE Prior VTE?: No VTE Risk Level:: Medical - moderate - high VTE Device Contraindication: N/A - Device Ordered VTE Drug Contraindication: Treatment Not Tolerated
[2020-08-05 08:54] LABS: Hematocrit 41.9 % (42-52); Mean Corpuscular HGB Conc 33.4 g/dl (31.0-36.0); Mean Corpuscular Hemoglobin 30.1 pg (27.0-33.0); Mean Corpuscular Volume 90.1 fL (80-98); Mean Platelet Volume 10.4 fL (9.4-12.4); Platelet Count 231 X10*3/uL (160-400); Red Blood Count 4.65 X10*6/uL (4.60-5.80); Red Cell Distribution Width 12.5 % (11.0-16.0); White Blood Count 22.2 X10*3/uL (4.8-10.8)
[2020-08-05 09:14] LABS: ~Lactic Acid-LAB USE ONLY 2.7 mmol/L (0.5-2.0)
[2020-08-05] MEDS: Piperacillin Sodium/Tazobactam 4.5 GM in 0.9 % Sodium Chloride 100 ML IV ×3 (10:05→21:16)
[2020-08-05 10:52] LABS: Reflex Lactate? 2 Y
--- NOTE | 2020-08-05 10:57 | P.CONPL_ITS ---
History of Present Illness History of Present Illness Consult date: 08/05/20 Requesting physician: Demetrius To Reason for consult: abnormal CXR/CT Chief complaint: GIB Narrative: 55-year-old gentleman recent 30+ pack-year smoker with underlying history of NORMA intolerant of CPAP, obesity related restrictive lung physiology, severe erosive esophagitis demonstrated on prior EGD admitted on 08/05/2020 with several episodes of vomiting with presents of small amount of blood versus hemoptysis. His CT chest demonstrated focal infiltrate and pulmonary consultation has been requested for possible diffuse alveolar hemorrhage. Review of Systems Constitutional: Constitutional: Reports daytime sleepiness, Denies excessive sweating, Denies fatigue, Denies fever(s), Denies lethargy, Denies malaise, Denies night sweats, Reports snoring and Denies weight loss Eyes: Eyes: Denies blurry vision and Denies itchy eyes ENT: Denies nasal congestion, Denies post nasal drip, Denies sinus pain, Denies sinus pressure and Denies other ( Thrush) Cardiovascular: Cardiovascular: Denies chest pain, Denies pedal edema, Denies dyspnea, Denies orthopnea and Denies paroxysmal nocturnal dyspnea Respiratory: Respiratory: Denies cough, Denies hemoptysis, Denies excessive phlegm production, Denies dyspnea, Reports snoring and Denies wheezing Gastrointestinal: Gastrointestinal: Denies abdominal pain, Reports heartburn and Reports vomiting Musculoskeletal: Musculoskeletal: Denies myalgias, Denies arthralgias and Denies joint swelling Integumentary/Breasts: Skin/Breast: Denies rash Neurologic: Denies memory loss and Denies seizure-like activity Psychiatric: Psychiatric: Denies abnormal sleep pattern, Denies anxiety and Denies memory loss Endocrine: Endocrine: Denies excessive sweating, Denies fatigue and Denies heat intolerance Hematologic/Lymphatic: Hematologic/Lymphatic: Denies easy bruising Allergic/Immunologic: Allergic/Immunologic: Denies itchy eyes, Denies seasonal rhinorrhea and Denies wheezing PMFSH Past Medical History Medical History (Updated 08/05/20 @ 11:03 by Avtar Torres MD) GERD (gastroesophageal reflux disease) Hx of chemical exposure Hx of tinnitus NORMA (obstructive sleep apnea) Restrictive lung disease secondary to obesity Surgical History Surgical History History of esophagogastroduodenoscopy (EGD) History of shoulder surgery Hx of adenoidectomy Social History Social History Household Members: Spouse and Children Are you a primary laboratory animal caretaker to a significant other at home: No Do you presently have visiting nurse or other home services: No Alcohol intake: current Alcohol intake frequency: holidays/special occasions only Alcohol type: beer Patient Tobacco Use Status: Never used Tobacco Use of substances other than those prescribed or required for medical reasons: Yes Substance Use Type: Marijuana Substance Use Frequency: Daily Advance Directives: No Meds Allergies Allergy/AdvReac Type Severity Reaction Status Date / Time No Known Allergies Allergy Verified 07/23/20 15:06 Active Medications: Current Medications Generic Name Dose Route Start Last Admin Trade Name Freq PRN Reason Stop Dose Admin Famotidine 40 mg 08/06/20 21:00 Famotidine 20 Mg Tablet PO BEDTIME MONTRELL Piperacillin Sod/Tazobactam 100 mls @ 200 mls/hr 08/05/20 09:15 08/05/20 10:35 Sod 4.5 gm/ Sodium Chloride IV Infused Q6H MONTRELL Infusion Melatonin 6 mg 08/05/20 08:33 Melatonin 3 Mg Tablet PO BEDTIME PRN Insomnia Pantoprazole Sodium 40 mg 08/05/20 16:30 Pantoprazole Sodium 40 Mg/10 Ml Vial IVPUSH BID@0630,1630 MONTRELL Sodium Chloride 3 ml 08/05/20 16:00 0.9 % Sodium Chloride Flush 3 Ml Syringe IVFLUSH QSHIFT [facility] Sucralfate 1 gm 08/05/20 09:00 08/05/20 08:56 Sucralfate 1 Gm Tablet PO Not Given BID [facility] Vitamin D 50 mcg 08/05/20 09:00 08/05/20 08:56 Cholecalciferol (Vitamin D3) 25 Mcg Tablet PO Not Given DAILY MONTRELL Physical Exam Vital Signs: Vital Signs: Last Vital Signs Temp 98.9 F 08/05/20 06:44 Pulse 100 08/05/20 07:35 Resp 18 08/05/20 07:35 BP 119/62 08/05/20 07:35 Pulse Ox 96 08/05/20 07:35 Body Mass Index 42.0 Const: General: no acute distress, alert, awake and other Nutritional Appearance: obese Eyes: Sclerae: sclerae normal EOM: EOMs intact bilaterally Neck: Neck: Yes no lymphadenopathy, Yes trachea midline and Yes supple Resp: Effort & Inspection: normal respiratory effort and no respiratory distress Auscultation: clear to auscultation bilaterally Cardio: Rate: regular rate Rhythm: regular rhythm Heart sounds: no gallops, no murmurs and no rubs GI: Palpation (GI): Soft to palpation and Other GI palpation findings present ( Nontender) Auscultation: normal bowel sounds Extrem: General: Yes no pedal edema, No clubbing and No cyanosis Results Laboratory Findings CBC and BMP: 08/05/20 08:47 08/05/20 05:31 ABG, PT/INR, D-dimer: PT/INR, D-dimer PT 12.2 SEC (10.8-13.0) 08/05/20 04:45 INR 1.0 (0.9-1.1) 08/05/20 04:45 Abnormal lab findings: Abnormal Labs 08/05/20 08/05/20 08/05/20 04:44 04:45 05:31 WBC 22.5 H Hct Immature Gran % (Auto) 0.5 H Neut % (Auto) 85.2 H Lymph % (Auto) 8.4 L Abs Immat Gran (auto) 0.12 H Absolute Neuts (auto) 19.2 H Anion Gap 11 L BUN 17 H Random Glucose 135 H Lactic Acid 2.5 H* Lactic Acid Fup @ 2Hr Total Protein 6.3 L 08/05/20 08/05/20 08:47 08:47 WBC 22.2 H Hct 41.9 L Immature Gran % (Auto) Neut % (Auto) Lymph % (Auto) Abs Immat Gran (auto) Absolute Neuts (auto) Anion Gap BUN Random Glucose Lactic Acid Lactic Acid Fup @ 2Hr 2.7 H* Total Protein Diagnostic Findings CT scan - chest: report reviewed and image reviewed Assessment and Plan (1) Pulmonary aspiration of gastric contents: Status: Acute Impression: 55-year-old gentleman admitted with what appears to be a vomiting with small amount of blood resulting in pulmonary aspiration. 80s of air low likelihood that patient has underlying diffuse alveolar hemorrhage as related CT abnormalities are focal. Recommendation: Agree with empiric Unasyn (or Augmentin) coverage for next 48 hours for underlying leukocytosis, likely secondary to pulmonary aspiration with vomiting episodes. Agree with high-dose PPI therapy. Patient may benefit starting on Spiriva or Incruse and outpatient pulmonary follow-up. (2) Restrictive lung disease secondary to obesity: Status: Acute (3) NORMA (obstructive sleep apnea): Status: Acute (4) Abnormal CT scan, chest: Status: Acute Procedures Date of Service Date of Service: 08/05/20
[2020-08-05 11:24] LABS: ~Lactic Acid-LAB USE ONLY 1.6 mmol/L (0.5-2.0)
--- NOTE | 2020-08-05 11:45 | PM.EVENT ---
Event Note Date of Service: 08/05/20 Event Note: GI consult dictated. EGD planned for 08/06 for further evaluation of hematemesis. Patient and aware of risks and benefits and agree to proceed.
--- NOTE | 2020-08-05 11:47 | MHC.SHP ---
Pre-Procedural Eval Section A Date of Service: 08/05/20 The patient is an INPATIENT: Yes Changes since office visit: No Cold of Flu in the past 2 weeks, No New Medical Problems, No Changes in Medication and No Patient answered all questions The History & Physical has been completed within 30 days and I have reviewed it.: Yes Section B Chief Complaint: GIB Allergies: Allergies Allergy/AdvReac Type Severity Reaction Status Date / Time No Known Allergies Allergy Verified 07/23/20 15:06 Plan I have reviewed the history and physical and performed a pertinent physical examination on my patient. No changes have occurred unless specified.
[2020-08-05] MEDS: Pantoprazole Sodium 40 MG/10 ML VIAL IVPUSH (16:11)
[2020-08-05] MEDS: 0.9 % Sodium Chloride Flush 3 ML SYRINGE IVFLUSH ×2 (16:11→21:17)
--- NOTE | 2020-08-05 19:13 | PC.NURSE ---
Pt aaox4, resting on stretcher in nad, endorses abd pain surrounding umbilicus. pt reports significant improvement in pain/discomfort since arrival to [facility]. Pt awaiting bed assignment. Pt with at bedside, offers no complaints/concerns. Stretcher low locked, rails raised, call donato within reach.
[2020-08-05] MEDS: Sucralfate 1 GM TABLET PO (21:16)
--- NOTE | 2020-08-05 21:20 | CONS_ITS ---
DATE OF SERVICE: 08/05/2020 REFERRING PHYSICIAN: Timothy Olmos MD REASON FOR CONSULTATION: Hematemesis. HISTORY OF PRESENT ILLNESS: The patient is a pleasant 55-year-old man, who was admitted to the hospital after presenting to the emergency room with complaints of hematemesis. He states he was well until the day of admission when he went to a [email or web address] show and ate food later than he usually does. He reports he became nauseous and developed an acidic sensation in his esophagus. Subsequently, he vomited. He had several episodes of vomiting and brought up bloody material approximately 1 cupful by his report. There was no coffee grounds and he has had no melena. He was evaluated in the emergency department, where laboratory studies were obtained showing a hematocrit of 45, which subsequently dropped to 41.9 four hours later. He has had no further hematemesis since admission. He does have a history of gastroesophageal reflux disease and underwent upper endoscopy on February 07 with findings of esophagitis. He was treated with a regimen of omeprazole in the morning, sucralfate during the day, and famotidine at night. He has had no dysphagia. PAST MEDICAL HISTORY: 1. Gastroesophageal reflux disease. 2. Obstructive sleep apnea. 3. Restrictive lung disease secondary to obesity. 4. Chemical exposure. 5. Tinnitus. 6. Shoulder surgery. 7. Adenoidectomy. CURRENT MEDICATIONS: Current medication list is reviewed in the chart. ALLERGIES: THERE ARE NONE REPORTED. FAMILY HISTORY: This is reviewed with the patient and is noncontributory. SOCIAL HISTORY: There is no current tobacco use. Alcohol use is infrequent and he does use marijuana. 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 REVIEW OF SYSTEMS: SKIN: No pruritus. HEENT: Negative. CARDIOPULMONARY: He denies shortness of breath or chest pain. GASTROINTESTINAL: As above. GENITOURINARY: Negative. NEURO/PSYCHIATRIC: Negative. PHYSICAL EXAMINATION: GENERAL: Pleasant male, in no acute distress. VITAL SIGNS: Reviewed in electronic medical record and are stable. SKIN: Anicteric. HEENT: No scleral icterus. NECK: Without lymphadenopathy or thyromegaly. LUNGS: Clear. HEART: Regular rate and rhythm. S1, S2. No murmur. ABDOMEN: Soft without focal masses or tenderness. Bowel sounds are present. No organomegaly is noted. EXTREMITIES: Without edema. LABORATORY DATA: Reviewed. A CT scan was obtained of the chest as well as the abdomen and pelvis, and is reviewed. This is interpreted as showing patchy multifocal airspace opacities throughout the right lung, possibly corresponding to a pneumonia. There was trace fluid within the esophagus, hepatic steatosis, and adrenal myelolipomas. IMPRESSION: Hematemesis. The differential diagnosis for this includes esophagitis, Antonietta-Trivedi tear, and acid peptic disease. I have discussed endoscopy with him including risks and benefits of the procedure. He understands these and agrees to proceed. This will be arranged for tomorrow for further evaluation of his hematemesis. I would recommend treating him with a proton pump inhibitor and monitoring his hematocrit. Thanks for asking me to see him. I will follow him in the hospital with you. MD IAM Huffman/ANA / [id number]
[2020-08-06] VITALS: BP 137/82; PULSE 58; RESP 18; TEMP 37.1; O2SAT 93
[2020-08-06] MEDS: Piperacillin Sodium/Tazobactam 4.5 GM in 0.9 % Sodium Chloride 100 ML IV ×3 (03:14→16:40)
[2020-08-06] MEDS: Pantoprazole Sodium 40 MG/10 ML VIAL IVPUSH ×2 (06:06→16:40)
[2020-08-06 07:33] VITALS: BP 127/75; PULSE 58; RESP 20; TEMP 36.8; O2SAT 94
--- NOTE | 2020-08-06 08:32 | MHC.CM.PN ---
CM met with Patient at bedside. 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 Patient's goal for dc is to return home and CM has initiated and will follow for dc planning. PCP is Dr. Isiah Mckay.
--- NOTE | 2020-08-06 08:41 | P.CONGS_ITS ---
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 He has known reflux disease and was admitted yesterday because of 6 episodes of bloody emesis at home. He came in with a cytosis well with question of infiltrates on chest CT suggestive of aspiration pneumonia. His CAT scan of his abdomen showed lipomatous masses on both adrenals with the lipoma on the right side measuring about 4.9 cm in size. He also had mentioned having some mild diffuse abdominal pain. He has had no episodes of bloody emesis since yesterday on admission. Review of Systems Constitutional: Constitutional: Denies chills and Denies fever(s) Cardiovascular: Cardiovascular: Denies chest pain, Denies dyspnea and Denies dyspnea on exertion Respiratory: Respiratory: Denies cough, Denies dyspnea and Denies dyspnea on exertion Gastrointestinal: Gastrointestinal: Denies hematochezia, Denies change in bowel habits and Reports hematemesis Genitourinary: Genitourinary: Denies hematuria and Denies difficulty urinating Musculoskeletal: Musculoskeletal: Denies back pain and Denies limited range of motion Neurologic: Denies focal weakness and Denies convulsions Psychiatric: Psychiatric: Denies depression and Denies mood swings PMFSH Past Medical History Medical History Adrenal benign neoplasm GERD (gastroesophageal reflux disease) Hx of chemical exposure Hx of tinnitus Morbid obesity NORMA (obstructive sleep apnea) Restrictive lung disease secondary to obesity Surgical History Surgical History History of esophagogastroduodenoscopy (EGD) History of shoulder surgery Hx of adenoidectomy Social History Social History Household Members: Spouse Housing: House Are you a primary patient care coordinator to a significant other at home: No Do you presently have visiting nurse or other home services: No Alcohol intake: current Alcohol intake frequency: holidays/special occasions only Alcohol type: beer Patient Tobacco Use Status: Former Tobacco user Tobacco use type: Cigarette Years Smoked: 40 Substance Use Type: Marijuana service: No Current occupational status: employed Meds Allergies Allergy/AdvReac Type Severity Reaction Status Date / Time No Known Allergies Allergy Verified 07/23/20 15:06 Active Medications: Current Medications Generic Name Dose Route Start Last Admin Trade Name Juvencio PRN Reason Stop Dose Admin Famotidine 40 mg 08/06/20 21:00 Famotidine 20 Mg Tablet PO BEDTIME MONTRELL Piperacillin Sod/Tazobactam 100 mls @ 200 mls/hr 08/05/20 09:15 08/06/20 03:50 Sod 4.5 gm/ Sodium Chloride IV Infused Q6H MONTRELL Infusion Melatonin 6 mg 08/05/20 08:33 Melatonin 3 Mg Tablet PO BEDTIME PRN Insomnia Pantoprazole Sodium 40 mg 08/05/20 16:30 08/06/20 06:06 Pantoprazole Sodium 40 Mg/10 Ml Vial IVPUSH 40 mg BID@0630,1630 MONTRELL Administration Sodium Chloride 3 ml 08/05/20 16:00 08/05/20 21:17 0.9 % Sodium Chloride Flush 3 Ml Syringe IVFLUSH 3 ml QSHIFT MONTRELL Administration Sucralfate 1 gm 08/05/20 09:00 08/05/20 21:16 Sucralfate 1 Gm Tablet PO 1 gm BID MONTRELL Administration Vitamin D 50 mcg 08/05/20 09:00 08/05/20 08:56 Cholecalciferol (Vitamin D3) 25 Mcg Tablet PO Not Given DAILY MONTRELL Physical Exam Vital Signs: Vital Signs: Last Vital Signs Temp 98.2 F 08/06/20 07:33 Pulse 58 08/06/20 07:33 Resp 20 08/06/20 07:33 BP 127/75 08/06/20 07:33 Pulse Ox 94 08/06/20 07:33 Body Mass Index 42.0 Const: Other: appears morbidly obese General: comfortable and no acute distress Orientation/consciousness: patient oriented x3 Neck: Neck: Yes no lymphadenopathy Resp: Auscultation: clear to auscultation bilaterally Cardio: Rhythm: regular rhythm GI: Palpation (GI): Soft to palpation, Tenderness to palpation present (GI) ( very mild tenderness on the epigastric area) and no guarding Neuro: General: patient oriented x3 Results Labs Result diagrams: 08/05/20 08:47 08/05/20 05:31 Labs: Abnormal lab results 08/05/20 08/05/20 Range/Units 08:47 08:47 WBC 22.2 H (4.8-10.8) X10*3/uL Hct 41.9 L (42-52) % Lactic Acid Fup @ 2Hr 2.7 H* (0.5-2.0) mmol/L Short CBC 08/05/20 Range/Units 08:47 WBC 22.2 H (4.8-10.8) X10*3/uL Hgb 14.0 (14.0-18.0) g/dl Hct 41.9 L (42-52) % Plt Count 231 (160-400) X10*3/uL Urine 08/05/20 Range/Units 04:45 Urine Color YELLOW Urine Appearance CLEAR Urine pH 6.0 (5.0-8.0) Ur Specific [place] 1.020 (1.005-1.025) Urine Protein NEG (NEG-TRACE) MG/DL Urine Glucose (UA) NEG (NEG) MG/DL All other labs normal. Imaging Abdomen CT scan report/results: report reviewed and image reviewed CT scan - pelvis: report reviewed and image reviewed Assessment and Plan (1) Adrenal benign neoplasm: Status: Acute He has bilateral adrenal Masses. The 1 on the right side measures 4.9 cm[address] Review of his CT scan showed that these appeared to be benign and appeared to be lipomatous. However, in view of the size, it is best to proceed with workup for a functioning adenoma of the adrenals. He has other acute medical issues at this time including GI bleed. He is currently stable however and is schedule to have endoscopy today. He is also currently being treated for possible aspiration pneumonia. He does not appear to be in respiratory distress at this time. Further management of his adrenal masses may be done as an outpatient. Procedures Date of Service Date of Service: 08/06/20
[2020-08-06] MEDS: Cholecalciferol (Vitamin D3) 25 MCG TABLET 50 MCG PO (09:17)
[2020-08-06] MEDS: 0.9 % Sodium Chloride Flush 3 ML SYRINGE IVFLUSH ×2 (09:18→16:41)
[2020-08-06] MEDS: Sucralfate 1 GM TABLET PO (09:18)
--- NOTE | 2020-08-06 10:23 | PM.IMPN ---
Subjective Subjective Date of Service: 08/06/20 Interval History: follow-up for hemoptysis no further episodes of bleeding no shortness of breath or cough sitting up in bed Physical Exam Vital Signs: Vital Signs: Last Vital Signs Temp 98.2 F 08/06/20 07:33 Pulse 58 08/06/20 07:33 Resp 20 08/06/20 07:33 BP 127/75 08/06/20 07:33 Pulse Ox 94 08/06/20 07:33 Body Mass Index 42.0 Appearing in no acute distress lung sounds are clear to auscultation heart regular rate rhythm, clear S1, S2 positive bowel sounds, abdomen is soft, nontender neuro patient is alert x3, no focal deficits Objective Data Current Medications Generic Name Dose Route Start Last Admin Trade Name Freq PRN Reason Stop Dose Admin Famotidine 40 mg 08/06/20 21:00 Famotidine 20 Mg Tablet PO BEDTIME MONTRELL Piperacillin Sod/Tazobactam 100 mls @ 200 mls/hr 08/05/20 09:15 08/06/20 09:18 Sod 4.5 gm/ Sodium Chloride IV 200 mls/hr Q6H MOTNRELL Administration Melatonin 6 mg 08/05/20 08:33 Melatonin 3 Mg Tablet PO BEDTIME PRN Insomnia Pantoprazole Sodium 40 mg 08/05/20 16:30 08/06/20 06:06 Pantoprazole Sodium 40 Mg/10 Ml Vial IVPUSH 40 mg BID@0630,1630 MONTRELL Administration Sodium Chloride 3 ml 08/05/20 16:00 08/06/20 09:18 0.9 % Sodium Chloride Flush 3 Ml Syringe IVFLUSH 3 ml QSHIFT MONTRELL Administration Sucralfate 1 gm 08/05/20 09:00 08/06/20 09:18 Sucralfate 1 Gm Tablet PO 1 gm BID MONTRELL Administration Vitamin D 50 mcg 08/05/20 09:00 08/06/20 09:17 Cholecalciferol (Vitamin D3) 25 Mcg Tablet PO 50 mcg DAILY MONTRELL Administration Labs CBC & Chem 7: 08/05/20 08:47 08/05/20 05:31 Labs: Laboratory Results - last 24 hr 08/05/20 11:00 Lactic Acid Fup @ 4Hr 1.6 Microbiology Microbiology Results: Microbiology 08/05/20 04:49 Blood - Venous Blood Culture - Preliminary No growth after 24 hours. 08/05/20 04:49 Blood - Venous Blood Culture - Preliminary No growth after 24 hours. Progress Note: A&P (1) Pneumonia: Status: Acute Assessment and Plan: 55 year male who is morbidly obese and presenting with self report of hemoptysis/hematemeis. CT shows infiltrate that could be pulmonary infiltrates or alveolar hemorrage Hemoptysis vs Hematesmesis. Possibly related to esophagitis - EGD today - stable H&H, follow closely - seen and evaluated by pulmonology with recommendation for Spiriva, no recommendation for bronchoscopy - IV PPI Aspiration pneumonia. Likely finding for pulmonary hemorrhage - continue Zosyn - follow cultures - supplemental oxygen as needed Leukocytosis. Secondary to aspiration pneumonia GERD - IV PPI Obesity. BMI 42.0 Discussed the importance of weight loss as obesity likely contributes to worsening of other comorbidities Adrenal lesions. seen and examined by General surgery -recommendation to follow-up as outpatient Dispo: likely discharge tomorrow when medically stable DVT prophylaxis with mechanical compression boots due to hemoptysis Attending: Dr. Lundberg Full code Quality Stroke Does the patient have a stroke diagnosis?: No VTE Prior VTE?: No VTE Risk Level:: Medical - moderate - high VTE Device Contraindication: N/A - Device Ordered VTE Drug Contraindication: Treatment Not Tolerated
--- NOTE | 2020-08-06 14:25 | P.CONAN_ITS ---
[facility] Active Problems Active Problems: All Active Problems (Updated 08/06/20 @ 08:45 by Tip contreras MD) Adrenal benign neoplasm (Acute) Morbid obesity (Acute) Abnormal CT scan, chest (Acute) NORMA (obstructive sleep apnea) (Acute) Restrictive lung disease secondary to obesity (Acute) Pulmonary aspiration of gastric contents (Acute) Pulmonary alveolar hemorrhage (Acute) Pneumonia (Acute) Left knee pain (Acute) GERD (gastroesophageal reflux disease) (Acute) GERD without esophagitis (Acute) Flank pain (Acute) Muscle spasm (Acute) Past Medical History Medical History Adrenal benign neoplasm GERD (gastroesophageal reflux disease) Hx of chemical exposure Hx of tinnitus Morbid obesity NORMA (obstructive sleep apnea) Restrictive lung disease secondary to obesity Surgical History Surgical History History of esophagogastroduodenoscopy (EGD) History of shoulder surgery Hx of adenoidectomy Social History Social History Household Members: Spouse Housing: House Are you a primary care analyst to a significant other at home: No Do you presently have visiting nurse or other home services: No Alcohol intake: current Alcohol intake frequency: holidays/special occasions only Alcohol type: beer Patient Tobacco Use Status: Never used Tobacco Substance Use Type: Marijuana service: No Current occupational status: employed Meds Allergies Allergy/AdvReac Type Severity Reaction Status Date / Time No Known Allergies Allergy Verified 07/23/20 15:06 Active Medications: Current Medications Generic Name Dose Route Start Last Admin Trade Name Freq PRN Reason Stop Dose Admin Famotidine 40 mg 08/06/20 21:00 Famotidine 20 Mg Tablet PO BEDTIME MONTRELL Piperacillin Sod/Tazobactam 100 mls @ 200 mls/hr 08/05/20 09:15 08/06/20 10:28 Sod 4.5 gm/ Sodium Chloride IV Infused Q6H MONTRELL Infusion Melatonin 6 mg 08/05/20 08:33 Melatonin 3 Mg Tablet PO BEDTIME PRN Insomnia Pantoprazole Sodium 40 mg 08/05/20 16:30 08/06/20 06:06 Pantoprazole Sodium 40 Mg/10 Ml Vial IVPUSH 40 mg BID@0630,1630 MONTRELL Administration Sodium Chloride 3 ml 08/05/20 16:00 08/06/20 09:18 0.9 % Sodium Chloride Flush 3 Ml Syringe IVFLUSH 3 ml QSHIFT MONTRELL Administration Sucralfate 1 gm 08/05/20 09:00 08/06/20 09:18 Sucralfate 1 Gm Tablet PO 1 gm BID MONTRELL Administration Vitamin D 50 mcg 08/05/20 09:00 08/06/20 09:17 Cholecalciferol (Vitamin D3) 25 Mcg Tablet PO 50 mcg DAILY MONTRELL Administration Exam Exam Date and Time: August 06, 2020 1425 Height,Weight and Vital Signs: Height 5 ft 11 in Weight 136.531 kg Last Vital Signs Temp 98.2 F 08/06/20 07:33 Pulse 58 08/06/20 07:33 Resp 20 08/06/20 07:33 BP 127/75 08/06/20 07:33 Pulse Ox 94 08/06/20 07:33 Pertinent Lab Results Pertinent Lab Results: Laboratory Tests 08/05/20 08/05/20 08/05/20 04:44 04:45 04:45 WBC 22.5 H RBC 5.09 Hgb 15.1 Hct 45.3 MCV 89.0 MCH 29.7 MCHC 33.3 RDW 12.5 Plt Count 267 MPV 10.4 Immature Gran % (Auto) 0.5 H Neut % (Auto) 85.2 H Lymph % (Auto) 8.4 L [place] % (Auto) 5.2 Eos % (Auto) 0.4 Baso % (Auto) 0.3 Lymph # (Auto) 1.9 [place] # (Auto) 1.2 Eos # (Auto) 0.1 Baso # (Auto) 0.1 Abs Immat Gran (auto) 0.12 H Absolute Neuts (auto) 19.2 H Absolute Nucleated RBC 0.000 Nucleated RBC % (auto) 0.0 PT INR Sodium Potassium Chloride Carbon Dioxide Anion Gap BUN Creatinine Estim Creat Clear Calc Estimated GFR Random Glucose Lactic Acid 2.5 H* Lactic Acid Fup @ 2Hr Lactic Acid Fup @ 4Hr Calcium Total Bilirubin Direct Bilirubin AST ALT Alkaline Phosphatase Total Protein Albumin Lipase Urine Color YELLOW Urine Appearance CLEAR Urine pH 6.0 Ur Specific [place] 1.020 Urine Protein NEG Urine Glucose (UA) NEG Urine Ketones NEG Urine Blood NEG Urine Nitrite NEG Ur Leukocyte Esterase NEG Gastric Occult Blood COVID-19 (DALIA) COVID-19 [employer] Com Blood Type Antibody Screen 08/05/20 08/05/20 08/05/20 04:45 04:49 05:00 WBC RBC Hgb Hct MCV MCH MCHC RDW Plt Count MPV Immature Gran % (Auto) Neut % (Auto) Lymph % (Auto) [place] % (Auto) Eos % (Auto) Baso % (Auto) Lymph # (Auto) [place] # (Auto) Eos # (Auto) Baso # (Auto) Abs Immat Gran (auto) Absolute Neuts (auto) Absolute Nucleated RBC Nucleated RBC % (auto) PT 12.2 INR 1.0 Sodium Potassium Chloride Carbon Dioxide Anion Gap BUN Creatinine Estim Creat Clear Calc Estimated GFR Random Glucose Lactic Acid Lactic Acid Fup @ 2Hr Lactic Acid Fup @ 4Hr Calcium Total Bilirubin Direct Bilirubin AST ALT Alkaline Phosphatase Total Protein Albumin Lipase Urine Color Urine Appearance Urine pH Ur Specific [place] Urine Protein Urine Glucose (UA) Urine Ketones Urine Blood Urine Nitrite Ur Leukocyte Esterase Gastric Occult Blood POS COVID-19 (DALIA) COVID-19 [employer] Com Blood Type Cancelled Antibody Screen Cancelled 08/05/20 08/05/20 08/05/20 05:31 05:31 05:51 WBC RBC Hgb Hct MCV MCH MCHC RDW Plt Count MPV Immature Gran % (Auto) Neut % (Auto) Lymph % (Auto) [place] % (Auto) Eos % (Auto) Baso % (Auto) Lymph # (Auto) [place] # (Auto) Eos # (Auto) Baso # (Auto) Abs Immat Gran (auto) Absolute Neuts (auto) Absolute Nucleated RBC Nucleated RBC % (auto) PT INR Sodium 141 Potassium 3.9 Chloride 106 Carbon Dioxide 28 Anion Gap 11 L BUN 17 H Creatinine 0.78 Estim Creat Clear Calc 154.5 Estimated GFR > 60 Random Glucose 135 H Lactic Acid Lactic Acid Fup @ 2Hr Lactic Acid Fup @ 4Hr Calcium 8.6 Total Bilirubin 0.9 Direct Bilirubin 0.3 AST 10 ALT 17 Alkaline Phosphatase 92 Total Protein 6.3 L Albumin 4.0 Lipase 12 Urine Color Urine Appearance Urine pH Ur Specific [place] Urine Protein Urine Glucose (UA) Urine Ketones Urine Blood Urine Nitrite Ur Leukocyte Esterase Gastric Occult Blood COVID-19 (DALIA) Negative COVID-[employer] Com See Note Blood Type O Positive Antibody Screen NEGATIVE 08/05/20 08/05/20 08/05/20 08:47 08:47 11:00 WBC 22.2 H RBC 4.65 Hgb 14.0 Hct 41.9 L MCV 90.1 MCH 30.1 MCHC 33.4 RDW 12.5 Plt Count 231 MPV 10.4 Immature Gran % (Auto) Neut % (Auto) Lymph % (Auto) [place] % (Auto) Eos % (Auto) Baso % (Auto) Lymph # (Auto) [place] # (Auto) Eos # (Auto) Baso # (Auto) Abs Immat Gran (auto) Absolute Neuts (auto) Absolute Nucleated RBC 0.000 Nucleated RBC % (auto) 0.0 PT INR Sodium Potassium Chloride Carbon Dioxide Anion Gap BUN Creatinine Estim Creat Clear Calc Estimated GFR Random Glucose Lactic Acid Lactic Acid Fup @ 2Hr 2.7 H* Lactic Acid Fup @ 4Hr 1.6 Calcium Total Bilirubin Direct Bilirubin AST ALT Alkaline Phosphatase Total Protein Albumin Lipase Urine Color Urine Appearance Urine pH Ur Specific [place] Urine Protein Urine Glucose (UA) Urine Ketones Urine Blood Urine Nitrite Ur Leukocyte Esterase Gastric Occult Blood COVID-19 (DALIA) COVID-19 Clin Com Blood Type Antibody Screen Airway Mallampati Class: IV TM Dist: >3cm Neck ROM: Full Denture: Upper and Lower Heart: RRR Lungs: CTA
[2020-08-06 14:31] VITALS: BP 147/74; PULSE 76; RESP 16; TEMP 37.2; O2SAT 96
--- NOTE | 2020-08-06 14:41 | PC.NURSE ---
Patient arrived to [facility] with two #18 PRN IVs, one in left hand and one in right hand. #18 in left hand asymptomatic, flushed with no problems. #18 in right hand painful and leaking when flushed. This line pulled, tolerated well.
[2020-08-06] MEDS: Lactated Ringers 500 ML 20 ML IVCONT (15:12)
[2020-08-06 15:32] VITALS: BP 104/46; PULSE 77; RESP 16; TEMP 36.7; O2SAT 93
--- NOTE | 2020-08-06 15:34 | P.BOP_ITS ---
Brief Operative Note Date of Service: 08/06/20 Pre-op diagnosis: Hematemesis Post-op diagnosis: same (normal egd) Procedure: EGD Surgeon: Faustino Robles Anesthesia: MAC Was an Sheet Metal Layout Worker used for this Procedure?: No Estimated blood loss (mL): 0 Pathology: none sent Condition: stable Disposition: PACU
--- NOTE | 2020-08-06 15:35 | PM.EVENT ---
Event Note Date of Service: 08/06/20 Event Note: EGD no bleeding, no esophagitis continue present reflux regimen f/u with Dr Pace
[2020-08-06 15:47] VITALS: BP 131/74; PULSE 70; RESP 17; TEMP 36.8; O2SAT 96
--- NOTE | 2020-08-06 17:29 | P.DS_ITS ---
DS: Providers Provider Date of Service: 08/06/20 <Esthela Mcdonald NP - Last Filed: 08/06/20 17:36> Date of admission: 08/05/20 08:30 <Esthela Mcdonald NP - Last Filed: 08/06/20 17:36> Date of discharge: 08/06/20 <Esthela Mcdonald NP - Last Filed: 08/06/20 17:36> Primary care physician: MARIANELA Berrios <Esthela Mcdonald NP - Last Filed: 08/06/20 17:36> Admitting clinician: Timothy Olmos <Esthela Mcdonald NP - Last Filed: 08/06/20 17:36> Attending physician on admission: Timothy Olmos <Esthela Mcdonald NP - Last Filed: 08/06/20 17:36> Consults: 08/05/20 06:55 Consult to Pulmonology Routine Consulting Provider: Avtar Torres Reason for consultation: pulmolnary hemmorhage 08/05/20 09:08 Consult to Gastroenterology Routine Consulting Provider: Cliff Pace Reason for consultation: Hemoptysis 08/06/20 08:04 Consult to General Surgery Routine Consulting Provider: Tip Rivera Reason for consultation: adrenal lipomas Has provider been notified: No <Esthela Mcdonald NP - Last Filed: 08/06/20 17:36> Attending physician on discharge: Noble Lundberg <Esthela Mcdonald NP - Last Filed: 08/06/20 17:36> Discharging clinician: Esthela Mcdonald <Esthela Mcdonald NP - Last Filed: 08/06/20 17:36> DS: Diagnosis Discharge Diagnosis (1) Pneumonia: Status: Acute <Esthela Mcdonald NP - Last Filed: 08/06/20 17:36> DS: Medications Discharge Medications Home Medications: Previous Rx's Medication Instructions Recorded famotidine 40 mg tablet 40 mg PO BEDTIME #90 tab 04/09/20 omeprazole 40 mg capsule,delayed 40 mg PO DAILY #60 cap 04/11/20 release sucralfate 1 gram tablet 1 g PO BID #60 tab 07/06/20 cholecalciferol (vitamin D3) 50 50 mcg PO DAILY #30 cap 08/04/20 mcg (2,000 unit) capsule amoxicillin-pot clavulanate 1 tab PO BID #16 tab 08/06/20 [Augmentin] tiotropium bromide [Spiriva 2 puff INHALATION DAILY #4 g 08/06/20 Respimat] <Esthela Mcdonald NP - Last Filed: 08/06/20 17:36> DS: Summary Hospital Course Hospital Course: HP as per admitting provider 55-year-old male with severe esophagitis coming to the ED complaining of vomiting blood and coughing up blood. He says this started around midnight and had 6-7 episodes. He also describes some abdominal discomfort for. No blood in the stool. He has not had anything like this in the past. Workup in the emergency room has revealed normal hemoglobin, however WBC is very high. He had a CT scan of the abdomen and pelvis as well as the chest and shows pulmonary infiltrate with concern of possible alveolar hemorrhage or PNA. He is not hypoxic. He said that he had a mild episode when he was done in the emergency room but for several hours now he has not had any further episode of bleeding . Patient presented with episode of hemoptysis. Patient with a history of GERD, sees Gastroenterology as outpatient and has had multiple endoscopies. He has not however had any history of hemoptysis in the past. Chest CT in the ER showed patchy multifocal airspace opacities throughout the right lung corresp onding to pneumonia versus pulmonary alveolar hemorrhage. He was seen and evaluated by pulmonology who thought the alveolar hemorrhage was likely secondary to aspiration and also recommended, due to the patient's history of lung disease that he start his Spiriva and he can also follow up with the pulmonology office as outpatient as well. He was started on IV Zosyn for aspiration pneumonia, he did not have any hypoxia. He had endoscopy today which did not show any esophagitis or active bleeding. It was recommended that he go home to continue his current regimen of sucralfate and PPI. Of note on the CT scan was also noted that he had an adrenal lypoma. he was seen and evaluated by General surgery who thought that disappeared benign however recommended outpatient follow-up with endocrinology. He will go home with a course of Augmentin for 8 more days and Spiriva. Attending Attestation: Patient seen and examined independently and I was present during suarez portion of E/M service. Agree with Maureen Mcdonald NP's history, physical, assessment, and plan. <Esthela Mcdonald NP - Last Filed: 08/06/20 17:36> Time Spent with Patient Time attestation: Total time spent providing and/or coordinating discharge services: <Esthela Mcdonald NP - Last Filed: 08/06/20 17:36> Discharge coordination time: Greater than 30 minutes <Esthela Mcdonald NP - Last Filed: 08/06/20 17:36> Quality: Stroke Does the patient have a stroke diagnosis?: No <Esthela Mcdonald NP - Last Filed: 08/06/20 17:36> Physical Exam Vital Signs: Vital Signs: Last Vital Signs Temp 98.2 F 08/06/20 15:47 Pulse 70 08/06/20 15:47 Resp 17 08/06/20 15:47 BP 131/74 08/06/20 15:47 Pulse Ox 96 08/06/20 15:47 Body Mass Index 42.0 <Eshtela Mcdonald NP - Last Filed: 08/06/20 17:36> Appearing in no acute distress head is normocephalic atraumatic eyes pupils are PERRLA sclera is anicteric mouth throat mucous membranes are intact and moist neck is supple no lymphadenopathy, no JVD noted lung sounds are clear to auscultation heart regular rate rhythm, clear S1, S2 positive bowel sounds, abdomen is soft, nontender neuro patient is alert x3, no focal deficits <Esthela Mcdonald NP - Last Filed: 08/06/20 17:36> DS: Data Data Completed and Pending Labs on day of discharge: Preliminary micro results at discharge 08/05/20 04:49 Blood Culture - Preliminary Blood - Venous No growth after 24 hours. 08/05/20 04:49 Blood Culture - Preliminary Blood - Venous No growth after 24 hours. <Esthela Mcdonald NP - Last Filed: 08/06/20 17:36> Discharge Plan Discharge Anticipated Discharge Date/Time: 08/06/20 17:11 <Esthela Mcdonald NP - Last Filed: 08/06/20 17:36> Patient Disposition: Home, Self-Care <Esthela Mcdonald NP - Last Filed: 08/06/20 17:36> Discharge Diagnosis: Hemoptysis, resolved aspiration pneumonia <Esthela Mcdonald NP - Last Filed: 08/06/20 17:36> Hemoptysis, resolved aspiration pneumonia <Noble Lundberg MD - Last Filed: 08/07/20 09:22> Referrals: [facility] [Provider Group] - 1 Week (Adrenal Lypoma ) Isiah Mckay, EDUCATIONAL SIGN LANGUAGE INTERPRETER- [Primary Care Provider] - 1 Week Avtar Torres MD [Physician] - 1 Week (lung disease ) <Esthela Mcdonald NP - Last Filed: 08/06/20 17:36> Discharge Medications: New Spiriva Respimat 1.25 mcg/actuation mist 2 puff inhalation DAILY Qty: 4 RF: 0 amoxicillin-pot clavulanate [Augmentin] 875-125 mg tablet 1 tab PO BID Qty: 16 RF: 0 Continued omeprazole 40 mg capsule,delayed release(DR/EC) 40 mg PO DAILY Qty: 60 RF: 4 sucralfate 1 gram tablet 1 g PO BID Qty: 60 RF: 3 cholecalciferol (vitamin D3) 50 mcg (2,000 unit) capsule 50 mcg PO DAILY Qty: 30 RF: 3 famotidine 40 mg tablet 40 mg PO BEDTIME Qty: 90 RF: 2 <Esthela Mcdonald NP - Last Filed: 08/06/20 17:36> Discharge Orders: Discharge Order (Routine); Ordered 08/06/20 Ordered By: Esthela Mcdonald <Esthela Mcdonald NP - Last Filed: 08/06/20 17:36> Diet: advance to usual diet <Esthela Mcdonald NP - Last Filed: 08/06/20 17:36> advance to usual diet <Noble Lundberg MD - Last Filed: 08/07/20 09:22> Activity on Discharge: As tolerated <Esthela Mcdonald NP - Last Filed: 08/06/20 17:36> As tolerated <Noble Lundberg MD - Last Filed: 08/07/20 09:22> Stand Alone Forms: Patient Portal Discharge page <Esthela Mcdonald NP - Last Filed: 08/06/20 17:36> Care Plan Goals: resolution of pneumonia symptoms no further episodes of hemoptysis <Esthela Mcdonald NP - Last Filed: 08/06/20 17:36> Health Concerns: Hemoptysis, resolved aspiration pneumonia <Esthela Mcdonald NP - Last Filed: 08/06/20 17:36> Plan of Treatment: Follow up with Dr. Pace as needed Continue new medications as prescribed Call [facility] to schedule an appointment for further workup for adrenal lipoma <Esthela Mcdonald NP - Last Filed: 08/06/20 17:36> Assessment: see discharge summary <Esthela Mcdonald NP - Last Filed: 08/06/20 17:36> Discharge Date/Time: 08/06/20 18:49 <Esthela Mcdonald NP - Last Filed: 08/06/20 17:36>
--- NOTE | 2020-08-06 21:22 | OP_ITS ---
SURGEON: Faustino Robles MD INDICATIONS: Upper GI bleeding and hematemesis. PREOPERATIVE DIAGNOSIS: POSTOPERATIVE DIAGNOSIS: PROCEDURE PERFORMED: ESTIMATED BLOOD LOSS: COMPLICATIONS: ANESTHESIA: Monitored anesthesia care. ASSISTANTS: SPECIMENS: PROCEDURE: Upper endoscopy. DESCRIPTION OF PROCEDURE: History and physical performed. The risks and benefits of the procedure were explained to the patient. Informed consent was obtained. The patient was placed in a left lateral decubitus position. The Olympus video gastroscope was introduced into the esophagus, stomach, and duodenum. Examination was performed. The scope was removed. He tolerated the procedure well and was transferred to recovery area in stable condition. FINDINGS: Esophagus: The esophagus was normal. There was no esophagitis. The EG junction was irregular. No bleeding site was identified. Stomach: The stomach showed no evidence of mass lesions. There was some benign-appearing gastric polyps less than 5 mm in the fundus. No bleeding site was identified. Duodenum: The bulb and second portion were normal. IMPRESSION: No source for bleeding identified. RECOMMENDATIONS: 1. Follow up with Dr. Pace 2. Continue present anti-reflux regimen. MD IAM Huffman/ANA / [id number] MTDD
== END 2020-08-06 18:49 | disposition home or self-care (01) | DRG 139 ==
LOC: HO.ED 07:07 → HO.EDOVER 08:35 → HO.IMC 19:23
PROVIDERS: Internal Medicine Gastroenterology; Admitting Provider Internal Medicine; Emergency Provider Emergency Medicine; PCP Nurse Practitioner Family; Visit Provider Family Medicine
PROC: 0DJ08ZZ Inspection of Upper Intestinal Tract, Via Natural or Artificial Opening Endoscopic (ICD-10-PCS; CPT 43235; principal; 2020-08-06 15:00)
DX: J18.9 Pneumonia, unspecified organism (principal); R04.2 Hemoptysis; D35.01 Benign neoplasm of right adrenal gland; G47.33 Obstructive sleep apnea (adult) (pediatric); J98.4 Other disorders of lung; K21.9 Gastro-esophageal reflux disease without esophagitis; D35.02 Benign neoplasm of left adrenal gland; E66.01 Morbid (severe) obesity due to excess calories; Z68.41 Body mass index [BMI] 40.0-44.9, adult; Z87.891 Personal history of nicotine dependence; Z20.822 Contact with and (suspected) exposure to COVID-19; Z79.899 Other long term (current) drug therapy
CPT/HCPCS: 36415; 71250; 74176; 80053; 81003; 82248; 82271; 83605; 83690; 85025; 85027; 85610; 86850; 86900; 86901; 87040; 87635; 93005; 99285; J0696; J2354; J2405; J2543

== ENCOUNTER 2020-09-03 14:47 | Outpatient (REF) | payer OTHER, SELFPAY ==
--- NOTE | ~2020-09-03 | XR_ITS ---
EXAMINATION: XR CHEST CLINICAL INFORMATION: Pneumonitis COMPARISON: Previous chest CT July 2020 and chest x-ray July 2018 TECHNIQUE: 2 views of the chest were obtained. FINDINGS: The cardiac and mediastinal contours are normal. The lungs are clear. The previously identified multilobar right-sided airspace disease on chest CT July 2020 has resolved. There is no pleural effusion. Bony structures are unremarkable. XR/XR chest 2V IMPRESSION: Normal chest. Resolved right-sided airspace disease from July 2020.
[2020-09-03 16:27] LABS: MANUAL DIFF FLAG NO
[2020-09-03 16:30] LABS: Basophils Absolute Auto 0.1 X10*3/uL (0.0-0.2); Basophils Percent Auto 0.4 % (0-2); Eosinophils Absolute Auto 0.1 X10*3/uL (0.0-0.4); Eosinophils Percent Auto 1.1 % (0-4); Hematocrit 41.5 % (42-52); Hemoglobin 13.8 g/dl (14.0-18.0); Imm Gran Abs Auto 0.04 X10*3/uL (0.00-0.03); Imm Gran Pct Auto 0.4 % (0.0-0.4); Lymphocytes Absolute Auto 2.6 X10*3/uL (1.2-4.9); Lymphocytes Percent Auto 22.4 % (20-40); Mean Corpuscular HGB Conc 33.3 g/dl (31.0-36.0); Mean Corpuscular Hemoglobin 29.2 pg (27.0-33.0); Mean Corpuscular Volume 87.7 fL (80-98); Mean Platelet Volume 11.3 fL (9.4-12.4); Monocytes Absolute Auto 0.9 X10*3/uL (0.1-1.2); Monocytes Percent Auto 8.2 % (2-11); Neutrophils Absolute Auto 7.7 X10*3/uL (2.0-8.3); Neutrophils Percent Auto 67.5 % (45-73); Platelet Count 293 X10*3/uL (160-400); Red Blood Count 4.73 X10*6/uL (4.60-5.80); Red Cell Distribution Width 12.2 % (11.0-16.0); White Blood Count 11.4 X10*3/uL (4.8-10.8)
[2020-09-03 16:44] LABS: Alanine Aminotransferase 17 U/L (0-40); Albumin Level 4.4 g/dL (3.5-5.0); Alkaline Phosphatase 96 U/L (39-117); Anion Gap 12 (12-20); Aspartate Amino Transferase 11 U/L (5-37); Bilirubin Total 0.4 mg/dL (0.0-1.0); Blood Urea Nitrogen 13 mg/dL (9-16); Calcium 8.8 mg/dL (8.4-10.2); Carbon Dioxide 27 mmol/L (22-29); Chloride 108 mmol/L (96-108); Estimated Glomerular Filt Rate > 60; Glucose Random 93 mg/dL (60-115); Potassium 3.8 mmol/L (3.3-5.1); Sodium 143 mmol/L (135-145); Total Protein 7.2 g/dL (6.5-8.0)
== END 2020-09-03 14:48 | disposition home or self-care (01) ==
LOC: HO.HMGCX 14:47
PROVIDERS: PCP Nurse Practitioner Family; Visit Provider Nurse Practitioner Family
DX: J69.0 Pneumonitis due to inhalation of food and vomit (principal)
CPT/HCPCS: 36415; 71046; 80053; 85025

== ENCOUNTER → 2020-09-17 15:04 | Outpatient (BNVA) | payer OTHER, SELFPAY | PROVIDERS: PCP Nurse Practitioner Family; Visit Provider Hospitalist ==

== ENCOUNTER → 2020-09-19 13:22 | Outpatient (BNVA) | payer OTHER, SELFPAY | PROVIDERS: PCP Nurse Practitioner Family; Visit Provider Orthopaedic Surgery ==

== ENCOUNTER → 2020-10-22 14:54 | Outpatient (BNVA) | payer OTHER, SELFPAY | PROVIDERS: Visit Provider Orthopaedic Surgery | DX: S83.242A Other tear of medial meniscus, current injury, left knee, initial encounter (principal); X50.1XXA Overexertion from prolonged static or awkward postures, initial encounter; Y93.89 Activity, other specified; Y92.69 Other specified industrial and construction area as the place of occurrence of the external cause; Y99.8 Other external cause status; Z87.891 Personal history of nicotine dependence | CPT/HCPCS: 20610; J1100 ==

== ENCOUNTER → 2020-12-31 11:06 | Outpatient (BNVA) | payer OTHER, SELFPAY | PROVIDERS: Visit Provider Physician Assistant ==

== ENCOUNTER 2021-01-09 06:02 | Day surgery (SDC) | payer OTHER, SELFPAY ==
--- NOTE | 2021-01-08 08:18 | HO.ANESPROP2 ---
Documented by User: Meryl Felix NP 01/08/21 08:20 HPI - Anesthesia Eval Consult details Narrative: 55yo M for Left Knee Arthroscopy s/p EGD 07/2020 with MAC PMF Active Problems Active Problems: All Active Problems (Updated 09/19/20 @ 13:52 by Aissatou Borden MD) GERD without esophagitis (Acute) Flank pain (Acute) Muscle spasm (Acute) Left knee pain (Acute) Pneumonia (Acute) Pulmonary aspiration of gastric contents (Acute) Abnormal CT scan, chest (Acute) Aspiration pneumonia (Acute) Tear of medial meniscus of left knee (Acute) Pulmonary nodules (Acute) Pneumonitis (Acute) Adrenal benign neoplasm (Acute) Morbid obesity (Acute) NORMA (obstructive sleep apnea) (Acute) Restrictive lung disease secondary to obesity (Acute) GERD (gastroesophageal reflux disease) (Acute) Past Medical History Medical History Adrenal benign neoplasm GERD (gastroesophageal reflux disease) Hx of chemical exposure Hx of tinnitus Morbid obesity NORMA (obstructive sleep apnea) Pneumonitis Pulmonary nodules Restrictive lung disease secondary to obesity Surgical History Surgical History History of esophagogastroduodenoscopy (EGD) History of shoulder surgery Hx of adenoidectomy Social History Social History Household Members: Spouse Housing: House Are you a primary care services manager to a significant other at home: No Do you presently have visiting nurse or other home services: No Alcohol intake: current Alcohol intake frequency: holidays/special occasions only Alcohol type: beer Patient Tobacco Use Status: Former Tobacco user Quit Date: 2011 Tobacco use type: Cigarette Years Smoked: 40 Use of substances other than those prescribed or required for medical reasons: Yes Substance Use Type: Marijuana Substance Use Type Other:: vape Substance Use Frequency: Daily Are you DNR?: No Advance Directives: No Advance Directives Information Provided: No Advance Directives on File: No Poor oral hygiene: No service: No Current occupational status: employed Meds Allergies Allergy/AdvReac Type Severity Reaction Status Date / Time No Known Allergies Allergy Verified 01/09/21 06:12 Exam Exam Date and Time: January 08, 2021 0818 Pertinent Lab Results Pertinent Lab Results: Laboratory Tests 09/03/20 09/03/20 14:54 14:54 WBC 11.4 H Hgb 13.8 L Hct 41.5 L Plt Count 293 D Sodium 143 Potassium 3.8 Chloride 108 Carbon Dioxide 27 BUN 13 Creatinine 0.80 Narrative Narrative: EKG 07/2020 Vent. Rate : 088 BPM ? ? Atrial Rate : 088 BPM ?? P-R Int : 152 ms? QRS Dur : 112 ms ? ? QT Int : 374 ms ? ? ? P-R-T Axes : 048 048 044 degrees ?? QTc Int : 452 ms ? Normal sinus rhythm Incomplete right bundle branch block Borderline ECG No previous ECGs available Assessment and Plan Assessment Anesthesia Assessment: Chart Reviewed Documented by User: Naila Lennon MD 01/09/21 07:14 COUNTS INCLUDE 234 BEDS AT THE [facility] Past Medical History Medical History Adrenal benign neoplasm GERD (gastroesophageal reflux disease) Hx of chemical exposure Hx of tinnitus Morbid obesity NORMA (obstructive sleep apnea) Pneumonitis Pulmonary nodules Restrictive lung disease secondary to obesity Surgical History Surgical History History of esophagogastroduodenoscopy (EGD) History of shoulder surgery Hx of adenoidectomy Social History Social History Household Members: Spouse Housing: House Are you a primary care services manager to a significant other at home: No Do you presently have visiting nurse or other home services: No Alcohol intake: current Alcohol intake frequency: holidays/special occasions only Alcohol type: beer Patient Tobacco Use Status: Former Tobacco user Quit Date: 2011 Tobacco use type: Cigarette Years Smoked: 40 Use of substances other than those prescribed or required for medical reasons: Yes Substance Use Type: Marijuana Substance Use Type Other:: vape Substance Use Frequency: Daily Are you DNR?: No Advance Directives: No Advance Directives Information Provided: No Advance Directives on File: No Poor oral hygiene: No service: No Current occupational status: employed Meds Allergies Allergy/AdvReac Type Severity Reaction Status Date / Time No Known Allergies Allergy Verified 01/09/21 06:12 Exam Airway Mallampati Class: III TM Dist: >3cm Neck ROM: Full
[2021-01-08 09:06] VITALS: BMI 41.5
[2021-01-09 06:20] VITALS: BP 124/67; PULSE 46; RESP 16; TEMP 36.3; O2SAT 96
[2021-01-09] MEDS: Lactated Ringers 1,000 ML 100 ML IVCONT (06:31)
--- NOTE | 2021-01-09 07:34 | MHC.SHP ---
Pre-Procedural Eval Section A Date of Service: 01/09/21 The patient is an INPATIENT: No Changes since office visit: Yes Patient answered all questions; No Cold of Flu in the past 2 weeks, No New Medical Problems and No Changes in Medication The History & Physical has been completed within 30 days and I have reviewed it.: Yes Section B Chief Complaint: meniscus tear Allergies: Allergies Allergy/AdvReac Type Severity Reaction Status Date / Time No Known Allergies Allergy Verified 01/09/21 06:12 Plan I have reviewed the history and physical and performed a pertinent physical examination on my patient. No changes have occurred unless specified.
--- NOTE | 2021-01-09 08:36 | PM.OP ---
Brief Operative Note Date of Service: 01/09/21 Pre-op diagnosis: left knee MMT Post-op diagnosis: other (1) left knee MMT 2) left knee PF OA) Procedure: Left knee partial medial meniscectomy and chondroplasty Implants: none Surgeon: Shekhar Hodges MD Anesthesia: GETA and local Was an Maritime Officer used for this Procedure?: No Estimated blood loss (mL): 5 Tourniquet time (min): 22 IV fluids (mL): 800 Pathology: none sent Condition: stable Disposition: PACU
--- NOTE | 2021-01-09 08:38 | W.PM.OPN ---
Operative Note Operative Note Date of Service: 01/09/21 Narrative: Pre-op diagnosis: left knee MMT Post-op diagnosis: other (1) left knee MMT 2) left knee PF OA) Procedure: Left knee partial medial meniscectomy and chondroplasty Implants: none Surgeon: Shekhar Hodges MD Anesthesia: GETA and local Was an Professor Of Journalism used for this Procedure?: No Estimated blood loss (mL): 5 Tourniquet time (min): 22 IV fluids (mL): 800 Pathology: none sent Condition: stable Disposition: PACU Procedure in detail: Patient was brought to the operating room placed supine on the arthroscopic table and prepped and draped in standard sterile fashion. A time-out was called to identify proper site proper procedure proper surgeon and IV antibiotics per weight were administered. I began by exsanguinating the limb and insufflating tourniquet to 300 mm Hg. Then made a standard anterolateral stab incision. The knee was insufflated with saline and a 30 degree arthroscope was placed. There was grade 4 cartilage eburnation of the proximal helf of the central patellar facet. There were grad 3 and 4 changes of the central trochlea. The gutters were clean. I descended into the medial compartment where I made my medial portal under direct visualization. There was obvious of complex tear of the body and posterior horn of the medial meniscus. There was a displaced flap of the body and mild G! fibrillations of the plateau but overall the cartilage surfaces of the medial compartment were normal. THe meniscal root was intact I used a combination of biter shaver and cautery to remove unstable portions of the meniscus down to styable edges. Approximately 60% of the meniscal volume was removed. Once I was satisfied with this the ACL was examined and intact and the lateral compartment also was normal. I then returned to the patellofemoral compartment and perfromed a chondroplasty of the losse chondral fragments in the trochlea. I then removed all instrumentation and closed the portals with skin glue. 25 mL of 2% Marcaine with epinephrine was injected into the joint and the surrounding soft tissues. Patient was then placed in sterile dressing extubated brought recovery room stable condition. There were no known complications.
[2021-01-09 08:39] VITALS: BP 116/68; PULSE 71; RESP 18; TEMP 36.2; O2SAT 99
[2021-01-09 08:44] VITALS: BP 117/69; PULSE 74; RESP 18; O2SAT 93
[2021-01-09 08:49] VITALS: BP 110/76; PULSE 70; RESP 18; O2SAT 93
[2021-01-09 08:54] VITALS: BP 113/74; PULSE 68; RESP 18; O2SAT 93
[2021-01-09 09:09] VITALS: BP 121/73; PULSE 67; RESP 18; O2SAT 95
== END 2021-01-09 10:15 | disposition home or self-care (01) ==
PROVIDERS: PCP Nurse Practitioner Family; Visit Provider Orthopaedic Surgery
PROC: (CPT 29870; principal; 2021-01-09 07:30)
DX: S83.232A Complex tear of medial meniscus, current injury, left knee, initial encounter (principal); M22.2X2 Patellofemoral disorders, left knee; X58.XXXA Exposure to other specified factors, initial encounter; Y93.9 Activity, unspecified; Y92.9 Unspecified place or not applicable; Y99.8 Other external cause status; G47.33 Obstructive sleep apnea (adult) (pediatric); F12.90 Cannabis use, unspecified, uncomplicated; Z87.891 Personal history of nicotine dependence
CPT/HCPCS: 29881; J0171; J0690; J1100; J2250; J2405; J3010

== ENCOUNTER 2021-01-16 16:00 | Outpatient (RCR) | payer OTHER, SELFPAY ==
--- NOTE | 2021-01-11 11:47 | MHC.PT.EP ---
[facility] [place] Office [place] Office [place] Office [address] [phone] F: [phone] F: [phone] F: [phone] F: [phone] Physical Therapy Plan of Care Date of Evaluation: Date of Surgery: 01/09/21 Diagnosis: This is a 55 yo male presenting to skilled PT with a script for s/p L knee arthroscopy Assessment: This is a 55 yo male presenting to skilled PT with a script for s/p L knee arthroscopy. Patient underwent the L medial meniscal arthroscopy on 01/09 through [facility] (returns to ortho on 01/21). He reports that his initial injury occurred when he was painting his baseboard and heard a pop (did not go to the MD but symptoms got worse over the year). Pain is located across the patella. Pain is described as sharp. States that he feels like it wants to bend backwards. He works in [employer] and has no stairs to maneuver at home. He lives with his at home who works as a nurse but he does not need assist with ADLs. No other aches or pains noted. Assessment reveals pain that ranges up to a 10/10. He demos decreased ROM, decreased strength, impaired gait pattern and joint mobility expected s/p arthroscopy surgery. He demos gross functional decline with walking, standing and stairs. He is a good candidate for skilled PT 2x/wk for 4wks. Frequency and Duration: The patient will be seen 2x/wk for 4wks Short Term Goals: I in HEP Demo normal AROM without pain Demo proper quad set without cues from PT Living Nurse Goals: Normalize gait pattern without pain or compensation Return to work in full Demo proper squat and lift techniques without pain Improve LEFs by 10 points Treatment Plan: Modalities to reduce pain, spasms and effusion. Manual therapy to restore motion and function. Therapeutic exercise to improve strength and flexibility. Neuromuscular re-education for posture and balance. Therapeutic activities to return to functional activities of daily living. Electronically signed by: Vicki Mayfield, PT Please sign and return to therapist. Thank you for your referral.
--- NOTE | 2021-01-31 10:25 | MHC.PT.DC ---
[facility] [place] Office [place] Office [place] Office [address] [phone] F: [phone] F: [phone] F: [phone] F: [phone] Physical Therapy Discharge Report Diagnosis: This is a 55 yo male presenting to skilled PT with a script for s/p L knee arthroscopy Date of Surgery: 01/09/21 Date of Evaluation: 01/11/21 Date of Discharge: 01/31/21 Treatments to Date: 3 Cancellations to Date: 0 No Shows to Date: 0 Discharge Status: Achieved Goals Improved Function Independent with HEP Discharge Summary: Patient without knee pain. Ambulating normally and demos WFL knee ROM. He has returned to work in full. I in program. DC to HEP Electronically signed by: Vicki Mayfield PT Please sign and return to therapist. Thank you for your referral.
== END 2021-01-31 10:26 | disposition home or self-care (01) ==
LOC: HO.PTCHIC 16:00
PROVIDERS: PCP Nurse Practitioner Family; Visit Provider Physician Assistant
DX: S83.242D Other tear of medial meniscus, current injury, left knee, subsequent encounter (principal)
CPT/HCPCS: 97110; 97112; 97161

== ENCOUNTER → 2021-01-21 13:03 | Outpatient (BNVA) | payer OTHER, SELFPAY | PROVIDERS: Visit Provider Physician Assistant ==

== ENCOUNTER 2021-02-04 15:19 | Outpatient (REF) | payer OTHER, SELFPAY ==
--- NOTE | ~2021-02-04 | CT_ITS ---
EXAMINATION: CT CHEST WITHOUT CONTRAST CLINICAL INFORMATION: Follow up airspace opacities and pulmonary nodules. COMPARISON: CT chest dated from 08/05/2020. TECHNIQUE: Multidetector volumetric CT imaging of the chest was done. Axial MIP volume rendering provided. Sagittal and coronal reformatted images were obtained. This CT examination was performed using dose optimization techniques as appropriate, variously including the following: *Automated exposure control *Adjustment of mA and/or kV according to patient size (this includes techniques or standardized protocols for targeted exams where dose is matched to indication/reason for exam; i.e. extremities or head) *Use of iterative reconstruction technique DLP: 336 mGy-cm FINDINGS: LUNGS: Previously described multifocal airspace opacities with preferential central distribution are entirely resolved with only minimal residual bronchial wall thickening and subsegmental mucous plugging. No new focal airspace opacities. A few micronodules are of uncertain significance. For instance, is identified posteriorly on the left apex (5:173), and posteriorly in the right apex (5:85). Fissural lymph nodes, for example on image 183 of series 5 are stable. A few tiny calcified pulmonary nodules are also unchanged, for example right base on image 391 of series 5. The central airways are patent. MEDIASTINUM: Normal heart size with trace amount of pericardial fluid. No mediastinal or hilar lymphadenopathy by size criteria. Mild atherosclerotic disease of the thoracic aorta which is of normal diameter. Slightly heterogeneous thyroid gland, similar to prior. PLEURA: There is no pleural effusion. No pleural mass or thickening. AXILLA: No lymphadenopathy. UPPER ABDOMEN: Decreased attenuation of the liver parenchyma suggesting hepatic steatosis. Bilateral fat-containing adrenal lesions corresponding to myolipomas are unchanged. OSSEOUS STRUCTURES: No acute or aggressive osseous abnormalities. CT/CT chest wo con IMPRESSION: Essentially resolved multifocal airspace opacities with very minimal residual bronchial wall thickening and a few areas of mucous plugging. Scattered micronodules are of uncertain significance. This could be followed utilizing Fleischner criteria if there is no prior history of cancer (see below). 2017 Fleischner Society Recommendations for Lung Nodule(s): Multiple Solid lung nodules < 6 mm: In a low-risk patient, no routine follow-up imaging is recommended. In a high-risk patient, a non-contrast Chest CT at 12 months is optional. These guidelines do not apply to patients younger than 35 years, immunocompromised patients, and patients with cancer. F/u in patients with significant comorbidities as clinically warranted. For lung cancer screening, adhere to Lung-RADS guidelines. Reference: Radiology. 2017 Michael; 284(1):228-749
== END 2021-02-04 15:20 | disposition home or self-care (01) ==
LOC: HO.CT 15:19
PROVIDERS: Visit Provider Hospitalist
DX: R91.8 Other nonspecific abnormal finding of lung field (principal); J18.9 Pneumonia, unspecified organism
CPT/HCPCS: 71250

== ENCOUNTER → 2021-02-11 13:26 | Outpatient (BNVA) | payer OTHER, SELFPAY | PROVIDERS: Referring Provider Nurse Practitioner Family; Visit Provider Internal Medicine Gastroenterology ==

== ENCOUNTER 2021-12-03 14:09 | Outpatient (REF) | payer OTHER, SELFPAY ==
--- NOTE | ~2021-12-03 | XR_ITS ---
EXAMINATION: XR CHEST CLINICAL INFORMATION: Cough. COMPARISON: 09/03/2020 chest radiographs. TECHNIQUE: 2 views of the chest were obtained. FINDINGS: No significant abnormality is noted involving the heart, lungs, mediastinum, bony thorax or soft tissues. XR/XR chest 2V IMPRESSION: No acute cardiopulmonary process.
== END 2021-12-03 14:10 | disposition home or self-care (01) ==
LOC: HO.HMGCX 14:09
PROVIDERS: PCP Nurse Practitioner Family; Visit Provider Internal Medicine
DX: R05.9 Cough, unspecified (principal)
CPT/HCPCS: 71046

== ENCOUNTER 2021-12-10 12:20 | Outpatient (REF) | payer OTHER, SELFPAY ==
[2021-12-10 13:10] VITALS: BMI 41.4
[2021-12-10 13:11] VITALS: BP 132/60; PULSE 61; RESP 16; TEMP 37; O2SAT 97
[2021-12-10 13:39] VITALS: BP 125/72; PULSE 61; RESP 16; O2SAT 97
--- NOTE | 2021-12-10 13:52 | W.PM.OPN ---
Operative Note Operative Note Date of Service: 12/10/21 Narrative: Preoperative diagnosis: Lipoma left elbow Postoperative diagnosis: Same Procedure: Excision of lipoma left elbow Surgeon: Isiah Hurd MD Spray Machine Operator: None Anesthesia: Bupivacaine 0.5% with epinephrine Indications for procedure: 56-year-old male patient presenting with a long history of a soft tissue mass located over the left elbow which causes pain when the lesion is struck. He denies previous surgery in this location. On examination the patient is found to have a 3 cm soft tissue mass suggestive of a lipoma. Operative findings: Fatty tissue suggestive of lipoma Specimen: Lipoma left elbow Estimated blood loss: Less than 1 mL Complications: None Procedure details: Patient brought to the minor surgery suite and placed in a supine position. The site of surgery was confirmed by the patient in the left elbow and informed consent confirmed. The patient's left elbow was prepped with ChloraPrep and draped in a sterile fashion. Local anesthesia was infiltrated in a longitudinal fashion over the lipoma. Incision was then made with the scalp in carried out through subcutaneous tissue up to the lipoma. Sharp dissection was then used with Metzenbaum scissors to dissect the lipoma from the surrounding subcutaneous tissue. Lesion was passed off the table and sent to pathology for further examination. After assuring adequate hemostasis the dermis and subcutaneous tissue was reapproximated using interrupted 3-0 Polysorb sutures. Skin was then closed using a running subcuticular 4-0 Polysorb suture. Steri-Strips, 2 x 2 gauze and Tegaderm were then applied. The patient tolerated the procedure well. He was discharged to home in stable condition.
== END 2021-12-10 12:21 | disposition home or self-care (01) ==
LOC: HO.MS 12:20
PROVIDERS: PCP Nurse Practitioner Family; Visit Provider Surgery
PROC: (CPT 24071; principal; 2021-12-10 13:00)
DX: D17.22 Benign lipomatous neoplasm of skin and subcutaneous tissue of left arm (principal)
CPT/HCPCS: 24071; 88304

== ENCOUNTER 2021-12-30 06:01 | Outpatient (REF) | payer OTHER, SELFPAY ==
[2021-12-30 11:37] LABS: Appearance Urine Clear; Color Urine Yellow; Glucose Urine UA Negative (Negative); Leukocyte Esterase Urine Negative (Negative); Nitrite Urine Negative (Negative); PH 6.5 (5.0-9.0); Urine Blood Negative (Negative); Urine Ketones Negative (Negative); Urine Protein Negative (Neg-Trace)
[2021-12-30 11:38] LABS: MANUAL DIFF FLAG NO
[2021-12-30 11:50] LABS: Basophils Percent Auto 0.6 % (0-2); Eosinophils Absolute Auto 0.2 X10*3/uL (0.0-0.4); Eosinophils Percent Auto 3.3 % (0-4); Hemoglobin 14.1 g/dl (14.0-18.0); Imm Gran Abs Auto 0.02 X10*3/uL (0.00-0.03); Imm Gran Pct Auto 0.3 % (0.0-0.4); Lymphocytes Percent Auto 28.2 % (20-40); Mean Corpuscular HGB Conc 32.8 g/dl (31.0-36.0); Mean Corpuscular Hemoglobin 28.9 pg (27.0-33.0); Mean Corpuscular Volume 88.1 fL (80.0-98.0); Mean Platelet Volume 10.9 fL (9.4-12.4); Monocytes Absolute Auto 0.6 X10*3/uL (0.1-1.2); Monocytes Percent Auto 8.6 % (2-11); Neutrophils Absolute Auto 4.2 x10*3/uL (2.0-8.3); Platelet Count 246 X10*3/uL (160-400); Red Blood Count 4.88 X10*6/uL (4.60-5.80); Red Cell Distribution Width 12.4 % (11.0-16.0); White Blood Count 7.2 X10*3/uL (4.8-10.8)
[2021-12-30 12:10] LABS: Alanine Aminotransferase 21 U/L (0-40); Albumin Level 4.2 g/dL (3.5-5.0); Alkaline Phosphatase 96 U/L (39-117); Anion Gap 14 (12-20); Aspartate Amino Transferase 12 U/L (5-37); Bilirubin Total 0.5 mg/dL (0.0-1.0); Blood Urea Nitrogen 11 mg/dL (9-16); Calcium 8.6 mg/dL (8.4-10.2); Carbon Dioxide 27 mmol/L (22-29); Chloride 105 mmol/L (96-108); Cholesterol 164 mg/dL; Estimated Glomerular Filt Rate > 60; Glucose Fasting 98 mg/dL (60-99); HDL Cholesterol 39 mg/dL; LDL Cholesterol Calculated 89 mg/dl; Potassium 4.2 mmol/L (3.3-5.1); Sodium 142 mmol/L (135-145); Total Protein 6.9 g/dL (6.5-8.0); Triglycerides 182 mg/dL
[2021-12-30 12:33] LABS: Prostate Specific Antigen Scr 0.43 ng/mL (<0.05-4.0); TSH reflex Free T4 0.76 uIU/mL (0.32-4.0)
== END 2021-12-30 06:02 | disposition home or self-care (01) ==
LOC: HO.HMGCLDS 06:01
PROVIDERS: PCP Nurse Practitioner Family; Visit Provider Nurse Practitioner Family
DX: Z00.00 Encounter for general adult medical examination without abnormal findings (principal); Z12.5 Encounter for screening for malignant neoplasm of prostate
CPT/HCPCS: 36415; 80053; 80061; 81003; 84153; 84443; 85025

== ENCOUNTER → 2022-04-28 14:52 | Outpatient (BNVA) | payer OTHER, SELFPAY | PROVIDERS: PCP Nurse Practitioner Family; Visit Provider Internal Medicine Gastroenterology | DX: Z13.89 Encounter for screening for other disorder (principal) ==

== ENCOUNTER 2023-04-06 13:22 | Outpatient (AMB) | payer OTHER, SELFPAY ==
--- NOTE | 2023-04-06 13:38 | A.OFFVIS_ITS ---
Intake Vital Signs 04/06/23 13:39 Height 5 ft 11 in Weight 297 lb 9.985 oz BMI 41.5 BP 140/79 H Blood Pressure Location Lt brachial Position Sitting Pulse 76 Intake Visit Reasons: F/U GERD Intake Note: Alonzo presents in the office as a follow up for GERD. CC: he states that he still has acid reflux it does not go away - he has to have the medications or he wont be able to eat. He wants to talk to you about a procedure. Services Engineer Required: No Allergies No Known Allergies Allergy (Verified 04/06/23 13:39) HPI F/U GERD HPI Details 57 yr old m being seen for f/u for GERD RECAP: he haD been having chronic hoarseness saw ENt and think its coming from GERD he is on protonix 20 mg bid he feels he still has heartburn, thinks omeprzole worked better he is also due another colonoscopy due to hx of polyps he does have NORMA< not on any treatment TESTS: EGD/colonoscopy at [facility]- Grade b esophagitis, 6 polyps removed rept egd/colon 09/2018-patulous GEJ< polyps removed, erosive esophagitis grade B, , moderate hemorrhoids he saw dr Hutton and was sent for manometry but he couldn;t tolerate so surgery WAS not being considered ws switched to lansoprazole doesn't think its helping still feels food sticking upper esophagus, eventually goes away denies diarrhea or constipation appetite is good, weight is stable I tried to get aciphex but denied so went to omeprazole 20 mg, increased again to omeprazole 40 mg he did go to [facility] but not keen on getting pH probe manometry instead repeat EGD: grade B esophagitis, grade III flap, v lax LES ++ He had admission 07/2020 with hemoptysis and pulmonary infiltrate, and had EGD with Dr Robles which was normal without any esophagitis INTERIM: He feels good, he is still on omeprazole, famotidine, sucralfate it works well no dysphagia no chest pain EXAM: GENERAL: The patient is well developed and nontoxic. VITAL SIGNS:see workflow HEENT: Nonicteric sclerae, PERRLA, EOMI. Oropharynx clear. Moist mucous membranes. Conjunctivae appear well perfused. No thyroid mass. CHEST: Chest wall is nontender. HEART: Regular rate and rhythm without murmurs. LUNGS: Clear to auscultation bilaterally. ABDOMEN: Soft, positive bowel sounds, nontender, no organomegaly.no flank tenderness SKIN: No rash, no excessive bruising, petechiae, or purpura. NEUROLOGIC: Cranial nerves II-XII intact without motor/sensory deficit. A/P: 1/ Recurrent GERD with patulous LES, controlled to some extent by PPI ,carafate and H2B --rediscussed options incl newer option of hybrid APC PLAN: 1/ He is very keen on Anti reflux ablati on therapy with hybrid APC and is requesting this, discussed pros and cons- 2/ cont meds, periodic check b12, iron, mag, vit d--advised to take multivitamin PFSH Medical History Pulmonary nodules Pneumonitis Adrenal benign neoplasm Morbid obesity Hx of tinnitus Hx of chemical exposure Restrictive lung disease secondary to obesity NORMA (obstructive sleep apnea) GERD (gastroesophageal reflux disease) Surgical History Hx of colonoscopy History of left knee surgery History of esophagogastroduodenoscopy (EGD) History of shoulder surgery Hx of adenoidectomy Social History Household Members: Spouse Housing: House Are you a primary caretaker grounds to a significant other at home: No Do you presently have visiting nurse or other home services: No Alcohol intake: current Alcohol intake frequency: holidays/special occasions only Alcohol type: beer Patient Tobacco Use Status: Former Tobacco user Quit Date: 2011 Tobacco use type: Cigarette Years Smoked: 40 e-Cigarette/Vaping Use: Never Used Second Hand Smoke Exposure: No Substance Use Type: Marijuana service: No Current occupational status: employed Current occupation: rt handed/[employer] Cognitive needs: No Hearing needs: No Vision needs: No Physical Exam Vital Signs: Last Vital Signs Pulse 76 04/06/23 13:39 BP 140/79 H 04/06/23 13:39 BMI result Body Mass Index 41.5 Assessment & Plan Assessment & Plan (1) GERD (gastroesophageal reflux disease): Code(s): K21.9 - Gastro-esophageal reflux disease without esophagitis Qualifiers: Esophagitis presence: with esophagitis Esophagitis bleeding: without hemorrhage Qualified Code(s): K21.00 - Gastro-esophageal reflux disease with esophagitis, without bleeding Plan: A/P: 1/ Recurrent GERD with patulous LES, controlled to some extent by PPI ,carafate and H2B --rediscussed options incl newer option of hybrid APC PLAN: 1/ He is very keen on Anti reflux ablation therapy with hybrid APC and is requesting this, discussed pros and cons- 2/ cont meds, periodic check b12, iron, mag, vit d--advised to take multivitamin Medications: Refilled famotidine 40 mg PO BEDTIME 90 tabs 1RF omeprazole 40 mg PO DAILY 60 caps 4RF sucralfate 1 g PO BID 90 tabs 1RF Coding Level of Care Code Est Pt Level 3 (14698) Diagnoses Gastroesophageal reflux disease with esophagitis without hemorrhage K21.00 Esophagitis presence: with esophagitis Esophagitis bleeding: without hemorrhage
[2023-04-06 13:39] VITALS: BP 140/79; PULSE 76; BMI 41.5
== END 2023-04-06 14:31 | disposition home or self-care (01) ==
PROVIDERS: PCP Nurse Practitioner Family; Visit Provider Internal Medicine Gastroenterology
DX: K21.00 Gastro-esophageal reflux disease with esophagitis, without bleeding (principal)
CPT/HCPCS: 99213

== ENCOUNTER → 2023-04-06 13:22 | Outpatient (BNVA) | payer OTHER, SELFPAY | PROVIDERS: PCP Nurse Practitioner Family; Visit Provider Internal Medicine Gastroenterology ==

== ENCOUNTER 2023-08-19 08:21 | Day surgery (SDC) | payer OTHER, SELFPAY ==
[2023-08-18 07:32] VITALS: BMI 41.4
--- NOTE | 2023-08-18 09:42 | P.CONAN_ITS ---
Documented by User: Meryl Felix NP 08/18/23 09:43 HPI - Anesthesia Eval Consult details Narrative: 58yo M for Upper Endo with ARAT Hybrid APC PMFSH Active Problems Active Problems: All Active Problems Cough (Acute) Screening for colon cancer (Acute) Lipoma (Acute) Screening for prostate cancer (Acute) Physical exam (Acute) GERD without esophagitis (Acute) Flank pain (Acute) Muscle spasm (Acute) Left knee pain (Acute) Pneumonia (Acute) Pulmonary aspiration of gastric contents (Acute) Abnormal CT scan, chest (Acute) Aspiration pneumonia (Acute) Tear of medial meniscus of left knee (Acute) Pulmonary nodules (Acute) Pneumonitis (Acute) Adrenal benign neoplasm (Acute) Morbid obesity (Acute) NORMA (obstructive sleep apnea) (Acute) Restrictive lung disease secondary to obesity (Acute) GERD (gastroesophageal reflux disease) (Acute) Past Medical History Medical History (Updated 08/19/23 @ 09:01 by Karrie Mason RN) Bradycardia Pulmonary nodules Pneumonitis Adrenal benign neoplasm Morbid obesity Hx of tinnitus Hx of chemical exposure Restrictive lung disease secondary to obesity NORMA (obstructive sleep apnea) GERD (gastroesophageal reflux disease) Surgical History Surgical History Hx of colonoscopy History of left knee surgery History of esophagogastroduodenoscopy (EGD) History of shoulder surgery Hx of adenoidectomy Social History Social History Household Members: Spouse Housing: House Are you a primary health care marketing specialist to a significant other at home: No Do you presently have visiting nurse or other home services: No Alcohol intake: current Alcohol intake frequency: holidays/special occasions only Alcohol type: beer Patient Tobacco Use Status: Former Tobacco user Tobacco use type: Cigarette Years Smoked: 40 e-Cigarette/Vaping Use: Never Used Second Hand Smoke Exposure: No Use of substances other than those prescribed or required for medical reasons: Yes Substance Use Type: Marijuana Are you DNR?: No Advance Directives: No Advance Directives Information Provided: Yes service: No Current occupational status: employed Current occupation: rt handed/[employer] Cognitive needs: No Hearing needs: No Vision needs: No Meds Allergies Allergy/AdvReac Type Severity Reaction Status Date / Time No Known Allergies Allergy Verified 04/06/23 13:39 Exam Height,Weight and Vital Signs: Height 5 ft 11 in Weight 134.717 kg Assessment and Plan Assessment Anesthesia Assessment: Chart Reviewed Documented by User: Naila Lennon MD 08/19/23 09:04 [facility] Past Medical History Medical History (Updated 08/19/23 @ 09:01 by Karrie Mason RN) Bradycardia Pulmonary nodules Pneumonitis Adrenal benign neoplasm Morbid obesity Hx of tinnitus Hx of chemical exposure Restrictive lung disease secondary to obesity NORMA (obstructive sleep apnea) GERD (gastroesophageal reflux disease) Family History Family history of problems with anesthesia: No Surgical History Surgical History Hx of colonoscopy History of left knee surgery History of esophagogastroduodenoscopy (EGD) History of shoulder surgery Hx of adenoidectomy History of Problems with Anesthesia: No Social History Social History Household Members: Spouse Housing: House Are you a primary health care marketing specialist to a significant other at home: No Do you presently have visiting nurse or other home services: No Alcohol intake: current Alcohol intake frequency: holidays/special occasions only Alcohol type: beer Patient Tobacco Use Status: Former Tobacco user Tobacco use type: Cigarette Years Smoked: 40 e-Cigarette/Vaping Use: Never Used Second Hand Smoke Exposure: No Use of substances other than those prescribed or required for medical reasons: Yes Substance Use Type: Marijuana Are you DNR?: No Advance Directives: No Advance Directives Information Provided: Yes service: No Current occupational status: employed Current occupation: rt handed/[employer] Cognitive needs: No Hearing needs: No Vision needs: No Meds Allergies Allergy/AdvReac Type Severity Reaction Status Date / Time No Known Allergies Allergy Verified 04/06/23 13:39 Exam Airway Mallampati Class: III TM Dist: >3cm Neck ROM: Full Assessment and Plan Assessment Anesthesia Assessment: Anesthesia Plan Discussed Final Anesthetic Review Family History of Problems with Anesthesia: No History of Problems with Anesthesia: No NPO: Yes ASA Class: III Final Preanesthetic Review: No Changes in Pt Med Stat, Meds/Allgs Chart Reviewed, Consent Obtained/Reviewed and Anes Risks/Benef Reviewed Patient Risk: Intermediate Procedure Risk: Low Anesthetic Plan Anesthetic Plan: GA Disposition: Standard PACU
[2023-08-19] VITALS (10 sets, daily range): BP systolic 129–140; BP diastolic 61–76; PULSE 49–83; RESP 14–16; TEMP 36.2–36.8; O2SAT 91–98; BMI 40.9
[2023-08-19] MEDS: Lactated Ringers 1,000 ML 100 ML IVCONT (09:07)
--- NOTE | 2023-08-19 09:38 | MHC.SHP ---
Pre-Procedural Eval Section A - 24 Hr Update-Section A only Date of Service: 08/19/23 Section B - Complete if H&P > 30 days Chief Complaint: gerd, Relevant Family History (Specify if Yes): No Relevant Social History: None Present Medications: see Short Stay Collaborative assessment Medical History: Significant History ( Bradycardia Pulmonary nodules Pneumonitis Adrenal benign neoplasm Morbid obesity Hx of tinnitus Hx of chemical exposure Restrictive lung disease secondary to obesity NORMA (obstructive sleep apnea) GERD (gastroesophageal reflux disease)) History of Previous Operations: Relevant previous surgery/procedure and date(s) (Hx of colonoscopy History of left knee surgery History of esophagogastroduodenoscopy (EGD) History of shoulder surgery Hx of adenoidectomy) Allergies: Allergies Allergy/AdvReac Type Severity Reaction Status Date / Time No Known Allergies Allergy Verified 04/06/23 13:39 Surgical History Surgical History Review of Systems Sugical H&P ROS: Negative: Constitution, Cardiovascular, Respiratory, Neurological, Psychiatric, Hem-Onc, Allergic/Immunologic, Gastrointestinal, Genitourinary, Musculoskeletal, Integumentary, Endocrine and Eyes/Ears/Nose/Throat Exam Surgical H&P Exam: Normal: HEENT, Normal: Heart, Normal: Lungs, Normal: Extremities, Normal: Abdomen, Normal: Skin and Normal: Neurological Exam Comment: high BMI Plan Diagnosis/Plan: Unchanged I have reviewed the history and physical and performed a pertinent physical examination on my patient. No changes have occurred unless specified. severe GERd, plan is for hybrid APC and ARAT Time Spent With Patient Time: Total time managing care of this patient today ____ minutes.
--- NOTE | 2023-08-19 09:40 | W.PM.OPN ---
Operative Note Operative Note Date of Service: 08/19/23 Narrative: Procedure Description: EGD Indication: GERD Anesthesia: GA FLEXIBLE TRANSORAL UPPER GASTROINTESTINAL ENDOSCOPY UPPER ENDOSCOPY Consent: Indications for the procedure and potential complications of bleeding, perforation, reaction to medications and missed diagnosis were discussed with the patient and informed consent was obtained. Instrument: Olympus GIF H 190 J mid size upper endoscope and colonoscope Monitoring: Vital signs and clinical assessment, continuous EKG monitoring, Pulse oximetry, Carbon Dioxide monitoring and blood pressure monitoring were done throughout the procedure. Procedure: The patient was placed in the left lateral decubitis position and pre-procedure medications were administered and a bite block was placed. The endoscope was inserted into the mouth and advanced under direct vision to the third part of duodenum. A careful inspection was made as the upper endoscope was withdrawn including a retroflexed examination of the proximal stomach; Findings and interventions are described below. Findings: Larynx:normal Esophagus: GE junction at 42 cm, diaphragm hiatus at 42 cm, normal mucosa Stomach: x 2 inflammed polyps noted in distal body, removed with cold snare with one clip applied for hemostasis. Grade 3 flap valve on retroflexed examination of the cardia. In retroflexion, markings were made to delineate the zone of ablation using APC close to the GEJ. ERBE jet was then used to lift the tissue and pulsed APC at 60 W was then used to ablate the tissue with about 270 degrees of tissue ablated. I did swap out and use a pediatric colonoscope as this offered better torque Duodenum: Normal bulb and descending duodenum, Intervention: cold snare polypectomy and anti reflux ablation therapy Impression/Findings: gastric polyps patulous GEJ PLAN: clear liquid diet for 2 days then advance diet as tolerated Magic mouthwash for 1 week high dose BID PPI for 3 months then reduce dose short course of percocet prn GERD precautions
[2023-08-19] MEDS: Mag&Al/Sim/Diphenhyd/Lidocaine 10 ML ORAL.SUSP PO (12:05)
== END 2023-08-19 13:50 | disposition home or self-care (01) ==
PROVIDERS: PCP Nurse Practitioner Family; Visit Provider Internal Medicine Gastroenterology
PROC: (CPT 43270; principal; 2023-08-19 10:10)
DX: K31.7 Polyp of stomach and duodenum (principal); K22.4 Dyskinesia of esophagus; K21.9 Gastro-esophageal reflux disease without esophagitis; Z79.899 Other long term (current) drug therapy
CPT/HCPCS: 43270; 88305; 88313; 88342; J0330; J1100; J2250; J2405; J2704; J3010; Q9968

== ENCOUNTER → 2023-08-19 08:21 | Outpatient (BNV) | payer OTHER, SELFPAY | PROVIDERS: PCP Nurse Practitioner Family; Visit Provider Internal Medicine Gastroenterology | DX: K31.7 Polyp of stomach and duodenum (principal); K22.89 Other specified disease of esophagus; K21.9 Gastro-esophageal reflux disease without esophagitis | CPT/HCPCS: 43270 ==

== ENCOUNTER 2023-09-23 12:34 | Outpatient (AMB) | payer OTHER, SELFPAY ==
[2023-09-23 12:41] VITALS: BP 140/76; PULSE 76; O2SAT 98; BMI 40.4
--- NOTE | 2023-09-23 12:41 | MHC.PC.OV ---
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 Accompanied by: Self / Same As Patient Allergies No Known Allergies Allergy (Verified 09/23/23 13:38) Medication List - Last Reconciled 09/23/23 by HAL Jimenes famotidine 40 mg PO BEDTIME Magic Mouthwash Diphen/Lido/Antacid 1:1:1 10 mL PO QID omeprazole 40 mg PO DAILY pantoprazole 40 mg PO BID 90 days sildenafil (Viagra) 25 mg PO DAILY PRN 10 days sucralfate 1 g PO BID Tobacco use date assessed: 09/23/23 Dental Screening Dental Screen Date: 09/23/23 Did you have a dental visit in the last 12 months?: No Did you have a dental problem in the last 6 months where you did not have access to dental care?: No Was dental information given to patient?: Patient declined HPI PE HPI Details Pt is here for a PE. Will order labs. Due for PSA, will order. Denies dribbling with urination, weak stream, and frequent nocturia. Pt already sees gastro, colon screens/endo. Did not want a GAV[place]OTA today. [facility] Medical History Bradycardia Pulmonary nodules Pneumonitis Adrenal benign neoplasm Morbid obesity Hx of tinnitus Hx of chemical exposure Restrictive lung disease secondary to obesity NORMA (obstructive sleep apnea) GERD (gastroesophageal reflux disease) Surgical History Hx of colonoscopy History of left knee surgery History of esophagogastroduodenoscopy (EGD) History of shoulder surgery Hx of adenoidectomy Social History Household Members: Spouse Housing: House Are you a primary small animal caretaker to a significant other at home: No Do you presently have visiting nurse or other home services: No Alcohol intake: current Alcohol intake frequency: holidays/special occasions only Alcohol type: beer Patient Tobacco Use Status: Former Tobacco user Tobacco use type: Cigarette Years Smoked: 40 e-Cigarette/Vaping Use: Never Used Second Hand Smoke Exposure: No Substance Use Type: Marijuana service: No Current occupational status: employed Current occupation: rt handed/[employer] Cognitive needs: No Hearing needs: No Vision needs: No Questionnaire PHQ-9 Over the last 2 weeks, how often have you been bothered by any of the following problems? 1. Little interest or pleasure in doing things: not at all 2. Feeling down, depressed, or hopeless: not at all 3. Trouble falling or staying asleep, or sleeping too much: not at all 4. Feeling tired or having little energy: not at all 5. Poor appetite or overeating: not at all 6. Feeling bad about yourself - or that you are a failure or have let yourself or your family down: not at all 7. Trouble concentrating on things, such as reading the newspaper or watching television: not at all 8. Moving or speaking so slowly that other people could have noticed. Or the opposite - being so fidgety or restless that you have been moving around a lot more than usual: not at all 9. Thoughts that you would be better off or of hurting yourself in some way: not at all Total score: 0 Depression Screening Interpretation: Negative Depression Screening Done: Yes 06957 - PHQ-9 Billing: Yes Source: Developed by Drs. Marvin Mcmahan, Shannan Gurrola, Anupam Thornton and colleagues, with an educational isabel from [employer]. Thrive Questionnaire Date Thrive assessed: 09/23/23 I am a: Patient What is your living situation today?: I choose not to answer this question Within the past 12 months, did the food you bought not last and you didn't have the money to get more?: I choose not to answer this question Within the past 12 months, did you worry whether your food would run out before you got money to buy more?: I choose not to answer this question Do you have trouble paying for medicines?: I choose not to answer this question Do you have trouble getting transportation to medical appointments?: I choose not to answer this question Do you have trouble paying your heating and electricity bill?: I choose not to answer this question Do you have trouble taking care of your child, family member or friend?: I choose not to answer this question Do you have trouble with day-to-day activities such as bathing, preparing meals, shopping, managing finances, etc.?: I choose not to answer this question Are you currently unemployed and looking for a job?: I choose not to answer this question Are you interested in more education?: I choose not to answer this question Please select the resources that you would like help with: None Currently or been in a relationship where the following occur: I choose not to answer THRIVE Score: 0 AUDIT C Alcohol Use Questionnaire (AUDIT-C) 1. How often do you have a drink containing alcohol?: Never 3. How often do you have six or more drinks on one occasion?: Never Total Score: 0 Score Reviewed/Action Taken: Yes SAGE-7 AMB Questionnaire SAGE-7 Date SAGE - 7 assessed: 09/23/23 Feeling nervous, anxious, or on edge: 0 = Not at all Not being able to stop or control worryin = Not at all Worrying too much about different things: 0 = Not at all Trouble relaxin = Not at all Being so restless that it is hard to sit still: 0 = Not at all Becoming easily annoyed or irritable: 0 = Not at all Feeling afraid as if something awful might happen: 0 = Not at all Total SAGE-7 score (0-4 normal; 5-9 mild; 10-14 moderate; 15-21 severe): 0 Source: Developed by Drs. Marvin Mcmahan, Shannan Gurrola, Anupam Thornton and colleagues, with an educational isabel from [employer]. SAGE-7 Assessment Billing SAGE-7 Assessment Tool: SAGE-7 Assessment 85667 Review of Systems Const Denies chills and Denies fever(s) Eyes Denies blurry vision ENT Denies vertigo, Denies dizziness and Denies sore throat Card Denies chest pain at rest, Denies chest pain with activity, Denies diaphoresis, Denies dyspnea and Denies dyspnea on exertion Resp Denies cough, Denies dyspnea, Denies dyspnea on exertion and Denies wheezing GI Denies abdominal pain, Denies melena, Denies hematochezia, Denies constipation, Denies diarrhea and Denies loose stools Denies hematuria Musc Denies numbness and Denies tingling Skin/Breast Denies lesions Neuro Denies vertigo, Denies dizziness, Denies numbness and Denies tingling Psych Denies anxiety, Denies depression, Denies homicidal ideation, Denies suicidal ideation and Denies other (substance abuse) Aller/Immun Denies wheezing Physical exam (Primary Care) Vital Signs: Last Vital Signs Pulse 76 09/23/23 12:41 BP 140/76 H 09/23/23 12:41 Pulse Ox 98 09/23/23 12:41 Oxygen Delivery Method Room Air 09/23/23 12:41 BMI result Body Mass Index 40.4 Tobacco/Smoking Status: Tobacco use Status Tobacco use date assessed 09/23/23 09/23/23 12:46 Patient Tobacco Use Status Former Tobacco user 09/23/23 12:46 Tobacco use type Cigarette 09/23/23 12:46 e-Cigarette/Vaping Use Never Used 09/23/23 12:46 PHQ-9: PHQ-9 Score PHQ-9: Total score 0 09/23/23 13:15 Depression Screening Interpretation: Negative Thrive Assessment: Date of Thrive Assessment Date Thrive assessed 09/23/23 09/23/23 12:46 Currently or been in a relationship where the following occur: I choose not to answer Const General: cooperative Nutritional Appearance: obese Orientation/consciousness: patient oriented x3 HENMT Head: Yes normal to inspection, Yes normocephalic and Yes atraumatic Ears: TM's normal bilaterally Eyes General: appearance normal, both eyes and all related structures Alignment and Position: alignment normal and position normal Neck Neck: Yes normal visual inspection and Yes no lymphadenopathy Thyroid: Thyroid normal Resp Effort & Inspection: normal respiratory effort Auscultation: clear to auscultation bilaterally Cardio Rate: regular rate Rhythm: regular rhythm Heart sounds: S1 normal heart sound present, S2 normal heart sound present and Murmur heart sound present systolic GI Palpation (GI): Soft to palpation and nontender Auscultation: normal bowel sounds Male General Exam: Yes normal external exam Penis: normal penis Scrotum: scrotum normal, testes descended bilaterally and no inguinal hernias Testes: no testicular mass Skin Rashes: no rashes Neuro General: patient oriented x3, moves all extremities, no focal motor deficits and deep tendon reflexes 2+ bilaterally Romberg Test: Negative Psych Appearance: grossly normal Mental Status: mental status grossly normal Speech and movement: Normal speech and movement present Affect: normal affect Attitude: cooperative Thought process: Normal thought process present Thought content: Normal thought content present Insight: Good insight present (Psych) Judgement: Good judgement present (Psych) Assessment and Plan Assessment & Plan (1) Encounter for routine adult physical exam with abnormal findings: Code(s): Z00.01 - Encounter for general adult medical examination with abnormal findings Plan: Labs ordered (2) Screening for prostate cancer: Code(s): Z12.5 - Encounter for screening for malignant neoplasm of prostate Plan: PSA ordered Plan The patient agreed to the use of a medical billing specialist for this encounter. Scribed for HAL Venegas by Ligia Sher medical billing specialist, on 09/23/2023 at 13:05 EST. Orders: Orders Complete Blood Count Auto Diff Today Z00. - Encounter for general adult medical examination with abnormal findings Comprehensive [place]. Panel Fast Today Z00. - Encounter for general adult medical examination with abnormal findings TSH reflex Free T4 Today Z00.01 - Encounter for general adult medical examination with abnormal findings UA CC w/rflx Micro + Cult Today Z00.01 - Encounter for general adult medical examination with abnormal findings Lipid Panel Today Z00.01 - Encounter for general adult medical examination with abnormal findings Prostate Specific Antigen Scr Today Z12.5 - Encounter for screening for malignant neoplasm of prostate Medications: New sildenafil (Viagra) administer 30 minutes to 4 hours before activity 25 mg PO DAILY 10 days PRN 10 tabs 0RF sexual activity sildenafil (Viagra) administer 30 minutes to 4 hours before activity 25 mg PO DAILY 10 days PRN 10 tabs 0RF sexual activity Coding Level of Care Code Est Pt Prev Care 40-64y(99072) Diagnoses Encounter for routine adult physical exam with abnormal findings Z00. Screening for prostate cancer Z12.5 Additional Codes SAGE-7 Assessment Billing - SAGE-7 Assessment Tool: SAGE-7 Assessment [id number] ([id number])
[2023-09-23 13:29] VITALS: BP 132/78
== END 2023-09-23 15:49 | disposition home or self-care (01) ==
PROVIDERS: PCP Nurse Practitioner Family; Visit Provider Nurse Practitioner Family
DX: Z00.00 Encounter for general adult medical examination without abnormal findings (principal); Z12.5 Encounter for screening for malignant neoplasm of prostate
CPT/HCPCS: 99396

== ENCOUNTER 2023-11-30 13:29 | Outpatient (AMB) | payer OTHER, SELFPAY ==
--- NOTE | 2023-11-30 13:32 | A.OFFVIS_ITS ---
Vital Signs 11/30/23 14:04 Height 5 ft 11 in Weight 286 lb 9.615 oz BMI 40.0 BP 148/83 H Blood Pressure Location Lt brachial Position Sitting Pulse 64 Intake Visit Reasons: egd Intake Note: Alonzo presents in the office as a EGD follow up. CC: he states that he had an injection during the EGD - no concerns that he would like to dicuss at this time. He wants to discuss that you wanted him to stop his meds and do a test. Quality Process Lead Required: No Allergies No Known Allergies Allergy (Verified 11/30/23 14:03) HPI HPI egd: Details: 58 yr old m being seen for f/u for GERD RECAP: he haD been having chronic hoarseness saw ENt and think its coming from GERD he is on protonix 20 mg bid he feels he still has heartburn, thinks omeprzole worked better he is also due another colonoscopy due to hx of polyps he does have NORMA< not on any treatment TESTS: EGD/colonoscopy at [facility]- Grade b esophagitis, 6 polyps removed rept egd/colon 09/2018-patulous GEJ< polyps removed, erosive esophagitis grade B, , moderate hemorrhoids he saw dr Hutton and was sent for manometry but he couldn;t tolerate so surgery WAS not being considered ws switched to lansoprazole doesn't think its helping still feels food sticking upper esophagus, eventually goes away denies diarrhea or constipation appetite is good, weight is stable I tried to get aciphex but denied so went to omeprazole 20 mg, increased again to omeprazole 40 mg he did go to [facility] but not keen on getting pH probe manometry instead repeat EGD: grade B esophagitis, grade III flap, v lax LES ++ He had admission 07/2020 with hemoptysis and pulmonary infiltrate, and had EGD with Dr Robles which was normal without any esophagitis INTERIM: He did well after the ARAT procedure, no pain he is still on omeprazole, famotidine, sucralfate no dysphagia no chest pain appetite is good, talked about healthy diet EXAM: GENERAL: The patient is well developed and nontoxic. VITAL SIGNS:see workflow HEENT: Nonicteric sclerae, PERRLA, EOMI. Oropharynx clear. Moist mucous membranes. Conjunctivae appear well perfused. No thyroid mass. CHEST: Chest wall is nontender. HEART: Regular rate and rhythm without murmurs. LUNGS: Clear to auscultation bilaterally. ABDOMEN: Soft, positive bowel sounds, nontender, no organomegaly.no flank tenderness SKIN: No rash, no excessive bruising, petechiae, or purpura. NEUROLOGIC: Cranial nerves II-XII intact without motor/sensory deficit. A/P: 1/ Recurrent GERD with patulous LES, controlled to some extent by PPI ,carafate and H2B - s/p ARAT PLAN: 1/ cut down sucraflate, and famotidine then after 2 weeks evening dose of PPI then switch to once daily PPI and assess sx and response, he will call me with update in about 4 weeks or so [facility] Medical History Bradycardia Pulmonary nodules Pneumonitis Adrenal benign neoplasm Morbid obesity Hx of tinnitus Hx of chemical exposure Restrictive lung disease secondary to obesity NORMA (obstructive sleep apnea) GERD (gastroesophageal reflux disease) Surgical History Hx of colonoscopy History of left knee surgery History of esophagogastroduodenoscopy (EGD) History of shoulder surgery Hx of adenoidectomy Social History Household Members: Spouse Housing: House Are you a primary healthcare consulting manager to a significant other at home: No Do you presently have visiting nurse or other home services: No Alcohol intake: current Alcohol intake frequency: holidays/special occasions only Alcohol type: beer Patient Tobacco Use Status: Former Tobacco user Tobacco use type: Cigarette Years Smoked: 40 e-Cigarette/Vaping Use: Never Used Second Hand Smoke Exposure: No Substance Use Type: Marijuana service: No Current occupational status: employed Current occupation: rt handed/[employer] Cognitive needs: No Hearing needs: No Vision needs: No Physical Exam Vital Signs: Last Vital Signs Pulse 64 11/30/23 14:04 BP 148/83 H 11/30/23 14:04 BMI result Body Mass Index 40.0 Assessment & Plan Assessment & Plan (1) GERD without esophagitis: Code(s): K21.9 - Gastro-esophageal reflux disease without esophagitis Category: Medical Plan: see above Coding Level of Care Code Est Pt Level 3 (16627) Diagnoses GERD without esophagitis K21.9
[2023-11-30 14:04] VITALS: BP 148/83; PULSE 64; BMI 40.0
== END 2023-11-30 15:27 | disposition home or self-care (01) ==
PROVIDERS: PCP Nurse Practitioner Family; Visit Provider Internal Medicine Gastroenterology
DX: K21.9 Gastro-esophageal reflux disease without esophagitis (principal)
CPT/HCPCS: 99213

== ENCOUNTER → 2023-11-30 13:29 | Outpatient (BNVA) | payer OTHER, SELFPAY | PROVIDERS: PCP Nurse Practitioner Family; Visit Provider Internal Medicine Gastroenterology ==

== ENCOUNTER 2024-02-04 10:03 | Outpatient (REF) | payer OTHER, SELFPAY ==
[2024-02-04 14:47] LABS: Influenza A PCR NEGATIVE (Negative); Influenza B PCR NEGATIVE (Negative); Resp Syncy Virus RNA Qual PCR POSITIVE (Negative); SARS COV2 PCR INHOUSE NEGATIVE (Negative)
== END 2024-02-04 10:04 | disposition home or self-care (01) ==
LOC: HO.LAB 10:03
PROVIDERS: PCP Nurse Practitioner Family; Visit Provider Physician Assistant
DX: J06.9 Acute upper respiratory infection, unspecified (principal); M54.50 Low back pain, unspecified
CPT/HCPCS: 0241U

== ENCOUNTER 2024-02-04 10:03 | Outpatient (AMB) | payer OTHER, SELFPAY ==
--- NOTE | 2024-02-04 11:17 | AM.OFFWIN_ITS ---
Intake Vital Signs 02/04/24 11:18 Weight 294 lb BP 120/82 Blood Pressure Location Lt brachial Position Sitting Pulse 62 Pulse Source Pulse Oximeter Temp 98.7 F Temp Source Oral Pulse Oximetry (%) 97 Oxygen Delivery Method Room Air Intake Visit Reasons: EP lower back/Cough Intake Note: Patient here for lower back pain that has been present for about 2-3 weeks and cough that started yesterday. Patient Tobacco Use Status: Former Tobacco user Allergies No Known Allergies Allergy (Verified 02/04/24 11:19) Do you need a note to return to daycare/school/sports/work: No HPI HPI Comments History of Present Illness Details History - The patient is a 58 year old male pres enting with low back pain and a sore throat. - The low back pain has been present for several weeks without any related trauma and exhibits no radiation to the flank, groin or accompanying urinary symptoms, signifying a musculoskeletal origin. Denies blood in his urine or loss of control of his bladder or bowels. - The patient has not attempted any pain relief methods thus far and notes increased discomfort with coughing. - The sore throat began with a cough the day before, with no fever, ear pain, sinus pain, shortness of breath, wheezing or headaches. - There are no indications of upper resp iratory infections or exposure to contagious individuals, and the patient does not have a history of asthma or COPD. He did not test for Covid at home. - His job entails working in a [email or web address] that currently has limited occupancy due to students being on vacation and he has been on vacation for several days, limiting his exposure to respiratory infections, strep or similar. Physical Exam General: Cooperative, healthy appearing, comfortable and no acute distress Orientation/consciousness: Patient oriented x3 Limitations: No limitations Head: Normal to inspection Ears: Hearing grossly normal bilaterally, external ears normal and TM's normal bilaterally, tinnitus present Nose: Normal external nose present, Normal nares present and No nasal discharge present Face and sinus: Normal facial exam and Yes sinuses nontender Mouth: Normal oral and palatal mucosa present and moist mucous membranes Throat: Yes tonsils normal, Yes uvula midline. Posterior oropharynx erythema, sore throat present Eyes: Appearance normal, both eyes and all related structures Neck: Normal visual inspection Respiratory: Clear to auscultation bilaterally. Normal respiratory effort, able to speak in complete sentences, Actively coughing, no respiratory distress, not tachypneic, no tripod positioning and no use of accessory muscles Cardiovascular: Regular rate and rhythm. Normal S1 and S2 : neg CVA bilaterally Skin: No rashes or lesions noted Neuro: Patient oriented x3 Back; No TTP along cervical spine, thoracic spine or lumbar spine, slight ttp bilateral low back, no spasms palpated Extremities: Normal to inspection and Yes no clubbing, cyanosis or edema PFSH Medical History Bradycardia Pulmonary nodules Pneumonitis Adrenal benign neoplasm Morbid obesity Hx of tinnitus Hx of chemical exposure Restrictive lung disease secondary to obesity NORMA (obstructive sleep apnea) GERD (gastroesophageal reflux disease) Surgical History Hx of colonoscopy History of left knee surgery History of esophagogastroduodenoscopy (EGD) History of shoulder surgery Hx of adenoidectomy Social History Household Members: Spouse Housing: House Are you a primary director of patient care to a significant other at home: No Do you presently have visiting nurse or other home services: No Alcohol intake: current Alcohol intake frequency: holidays/special occasions only Alcohol type: beer Patient Tobacco Use Status: Former Tobacco user Tobacco use type: Cigarette Years Smoked: 40 e-Cigarette/Vaping Use: Never Used Second Hand Smoke Exposure: No Substance Use Type: Marijuana service: No Current occupational status: employed Current occupation: rt handed/[employer] Cognitive needs: No Hearing needs: No Vision needs: No Review of Systems Const All systems reviewed & are unremarkable except as noted in HPI and below Physical Exam Vital Signs: Last Vital Signs Temp 98.7 F 02/04/24 11:18 Pulse 62 02/04/24 11:18 BP 120/82 02/04/24 11:18 Pulse Ox 97 02/04/24 11:18 Oxygen Delivery Method Room Air 02/04/24 11:18 Assessment & Plan Assessment & Plan (1) URI, acute: Code(s): J06.9 - Acute upper respiratory infection, unspecified Plan: The patient is advised to continue Mucinex DM to manage cough-related throat pain. A decisive viral screening including COVID-19, influenza, and RSV is to be conducted, with subsequent instruction to follow based on those results. Further medical action will hinge on the outcomes of these viral tests and the potential prolongation of symptoms beyond the typical viral course. Careful adherence to the prescribed medication regimen and possible follow-up if symptoms worsen ensures comprehensive management. Patient was informed and verbally consented to the use of an ambient scribe for clinic note documentation during this visit (2) Low back pain: Code(s): M54.50 - Low back pain, unspecified Qualifiers: Chronicity: acute Back pain laterality: bilateral Sciatica presence: without sciatica Qualified Code(s): M54.50 - Low back pain, unspecified Plan: The management plan centers on addressing the musculoskeletal low back pain with Naproxen and a muscle relaxant, Cyclobenzaprine, primarily for evening use to minimize possible side effects during daily activities. Orders: Orders SARS-CoV2/FLU/RSV Today J06.9 - Acute upper respiratory infection, unspecified Medications: New cyclobenzaprine 5 mg PO Q8H PRN 15 tabs 0RF Muscle Spasm Coding Level of Care Code Est Pt Level 4 (22837) Diagnoses URI, acute J06.9 Acute bilateral low back pain without sciatica M54.50 Chronicity: acute Back pain laterality: bilateral Sciatica presence: without sciatica
[2024-02-04 11:18] VITALS: BP 120/82; PULSE 62; TEMP 37.1; O2SAT 97
== END 2024-02-04 12:03 | disposition home or self-care (01) ==
PROVIDERS: PCP Nurse Practitioner Family; Visit Provider Physician Assistant
DX: J06.9 Acute upper respiratory infection, unspecified (principal); M54.50 Low back pain, unspecified

== ENCOUNTER 2024-04-04 10:54 | Outpatient (AMB) | payer OTHER, SELFPAY ==
--- NOTE | 2024-04-04 10:54 | MHC.OFFVIS ---
Intake Visit Reasons: 4 mo f/u Gerd Intake Note: Alonzo presents as a 4 month follow up telehealth. CC: To caryl ongoing GERD. States he is feeling okay. Allergies No Known Allergies Allergy (Verified 04/04/24 10:54) HPI HPI 4 mo f/u Gerd: Details: 58 yr old m being seen for f/u for GERD RECAP: he haD been having chronic hoarseness saw ENt and think its coming from GERD he is on protonix 20 mg bid he feels he still has heartburn, thinks omeprzole worked better he is also due another colonoscopy due to hx of polyps he does have NORMA< not on any treatment TESTS: EGD/colonoscopy at [facility]- Grade b esophagitis, 6 polyps removed rept egd/colon 09/2018-patulous GEJ< polyps removed, erosive esophagitis grade B, , moderate hemorrhoids he saw dr Hutton and was sent for manometry but he couldn;t tolerate so surgery WAS not being considered ws switched to lansoprazole doesn't think its helping still feels food sticking upper esophagus, eventually goes away denies diarrhea or constipation appetite is good, weight is stable I tried to get aciphex but denied so went to omeprazole 20 mg, increased again to omeprazole 40 mg he did go to [facility] but not keen on getting pH probe manometry instead repeat EGD: grade B esophagitis, grade III flap, v lax LES ++ He had admission 07/2020 with hemoptysis and pulmonary infiltrate, and had EGD with Dr Robles which was normal without any esophagitis INTERIM: He cut down his meds and taking pantoprazole 40 mg once a day only no dysphagia no chest pain no issues with appetite he has noted issues with hemorrhoids, recurrent A/P: 1/ Recurrent GERD with patulous LES, controlled to some extent by PPI ,carafate and H2B - s/p ARAT--now on PPI once daily and happy with sx control 2/ due colonoscopy PLAN: 1/ cont with once daily PPI-- take MV daily 2/ colonoscopy with suprep 3/ refer surgery for hemorrhoid PFSH Medical History Bradycardia Pulmonary nodules Pneumonitis Adrenal benign neoplasm Morbid obesity Hx of tinnitus Hx of chemical exposure Restrictive lung disease secondary to obesity NORMA (obstructive sleep apnea) GERD (gastroesophageal reflux disease) Surgical History Hx of colonoscopy History of left knee surgery History of esophagogastroduodenoscopy (EGD) History of shoulder surgery Hx of adenoidectomy Social History Household Members: Spouse Housing: House Are you a primary care director to a significant other at home: No Do you presently have visiting nurse or other home services: No Alcohol intake: current Alcohol intake frequency: holidays/special occasions only Alcohol type: beer Patient Tobacco Use Status: Former Tobacco user Tobacco use type: Cigarette Years Smoked: 40 e-Cigarette/Vaping Use: Never Used Second Hand Smoke Exposure: No Substance Use Type: Marijuana service: No Current occupational status: employed Current occupation: rt handed/[employer] Cognitive needs: No Hearing needs: No Vision needs: No Telehealth Telehealth Telehealth Platform: Telephone Location of provider rendering services: practice address Location of patient: address on file Patient Identification confirmed using: Name, : Yes Telehealth method: voice only Patient verbally consented to treatment: Yes Patient verbally consented to billing insurance company: Yes Patient informed of any privacy concerns related to visit: Yes Minutes spent on Phone/Video with Pt.: 6 Assessment & Plan Assessment & Plan (1) Hemorrhoid: Code(s): K64.9 - Unspecified hemorrhoids Category: Medical Plan: as above Orders: Referrals General Surgery Referral K64.9 - Unspecified hemorrhoids Medications: New sodium,potassium,mag sulfates 17.5-3.13-1.6 gram (Suprep Bowel Prep Kit) DILUTE; drink 1/2 at 6-8 pm and half at 11 PM- 1AM 354 mL 0RF Coding Level of Care Code Tele Est Pt Level 3 (50741) Diagnoses Hemorrhoid K64.9
== END 2024-04-04 12:21 | disposition home or self-care (01) ==
LOC: HO.HGI 10:54
PROVIDERS: PCP Nurse Practitioner Family; Visit Provider Internal Medicine Gastroenterology
DX: K64.9 Unspecified hemorrhoids (principal)
CPT/HCPCS: 98012

== ENCOUNTER → 2024-04-04 10:54 | Outpatient (BNVA) | payer OTHER, SELFPAY | PROVIDERS: PCP Nurse Practitioner Family; Visit Provider Internal Medicine Gastroenterology ==

== ENCOUNTER 2024-04-28 13:54 | Outpatient (AMB) | payer OTHER, SELFPAY ==
--- NOTE | 2024-04-28 14:03 | MHC.OFFVIS ---
Vital Signs 04/28/24 14:09 Height 5 ft 11 in Weight 296 lb BMI 41.3 Intake Visit Reasons: Unspecified hemorrhoids Intake Note: This patient presents for Unspecified hemorrhoids. Pt c/o; reports occasional rectal bleeding, he has a scheduled colonoscopy with on 05/26/2024. 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 He says he has some periodic passage of bright blood per rectum with this hemorrhoids. He says that this happens with bowel movements. He denies any significant pain He admits to occasional constipation He has had multiple colonoscopies in the past. He says he is scheduled for another colonoscopy next month Dr. Pace. He says that sometimes the amount of blood that he sees is quite worrisome to him. [facility] Medical History (Updated 04/28/24 @ 14:23 by Tip Rivera MD) Bleeding hemorrhoids Bradycardia Pulmonary nodules Pneumonitis Adrenal benign neoplasm Morbid obesity Hx of tinnitus Hx of chemical exposure Restrictive lung disease secondary to obesity NORMA (obstructive sleep apnea) GERD (gastroesophageal reflux disease) Surgical History Hx of colonoscopy History of left knee surgery History of esophagogastroduodenoscopy (EGD) History of shoulder surgery Hx of adenoidectomy Social History Household Members: Spouse Housing: House Are you a primary nursing care partner to a significant other at home: No Do you presently have visiting nurse or other home services: No Alcohol intake: current Alcohol intake frequency: holidays/special occasions only Alcohol type: beer Patient Tobacco Use Status: Former Tobacco user Tobacco use type: Cigarette Years Smoked: 40 e-Cigarette/Vaping Use: Never Used Second Hand Smoke Exposure: No Substance Use Type: Marijuana service: No Current occupational status: employed Current occupation: rt handed/[employer] Cognitive needs: No Hearing needs: No Vision needs: No Review of Systems Const Denies chills and Denies fever(s) Card Denies chest pain, Denies dyspnea and Denies dyspnea on exertion Resp Denies cough, Denies dyspnea and Denies dyspnea on exertion GI Reports hematochezia and Denies change in bowel habits Denies hematuria and Denies difficulty urinating Musc Denies back pain and Denies limited range of motion Neuro Denies focal weakness and Denies convulsions Psych Denies depression and Denies mood swings Physical Exam Vital Signs: BMI result Body Mass Index 41.3 Const Other: Obese General: comfortable and no acute distress Orientation/consciousness: patient oriented x3 Neck Neck: Yes no lymphadenopathy Resp Auscultation: clear to auscultation bilaterally Cardio Rhythm: regular rhythm GI Other: Rectal exam shows External hemorrhoids although non bulky looking Palpation (GI): Soft to palpation, nontender and no guarding Neuro General: patient oriented x3 Office Procedures Anoscopy He was in junior-knife position. The anoscope was gently inserted a full examination of the entire anal canal was done. He would have very prominent mixed internal and external hemorrhoidal columns on both the left and the right side. There were no other lesions. There was no fissure ulceration. There was no bleeding. There was no induration on digital exam [id number] Assessment & Plan Assessment & Plan (1) Bleeding hemorrhoids: Code(s): K64.9 - Unspecified hemorrhoids Category: Medical Plan: He does have prominent internal and external hemorrhoidal columns. He says that sometimes the bleeding can be concerning to him. He is contemplating proceeding with hemorrhoidectomy. I had a long discussion with him about the technique of exam under anesthesia and hemorrhoidectomy. I reviewed with him the risks including but not limited to bleeding infections and poor healing, as well as the benefits and alternatives. I reviewed with him what to expect postoperatively He will undergo colonoscopy next month with Dr. Pace and he says he will talk to me again after that he wants to proceed. Coding Level of Care Code New Pt Level 3 (45009) Diagnoses Bleeding hemorrhoids K64.9 CPT Codes Details - CPT: 33048-[id number] ([id number])
[2024-04-28 14:09] VITALS: BMI 41.3
== END 2024-04-28 14:29 | disposition home or self-care (01) ==
LOC: HO.HGS 13:55
PROVIDERS: PCP Nurse Practitioner Family; Visit Provider Surgery
DX: K64.9 Unspecified hemorrhoids (principal)
CPT/HCPCS: 46600; 99203

== ENCOUNTER → 2024-04-28 13:54 | Outpatient (BNVA) | payer OTHER, SELFPAY | PROVIDERS: PCP Nurse Practitioner Family; Visit Provider Surgery | DX: K64.9 Unspecified hemorrhoids (principal) | CPT/HCPCS: 46600 ==

== ENCOUNTER 2024-05-26 06:59 | Day surgery (SDC) | payer OTHER, SELFPAY ==
[2024-05-24 14:07] VITALS: BMI 41.3
--- NOTE | 2024-05-25 08:23 | P.CONAN_ITS ---
Documented by User: Meryl Felix NP 05/25/24 08:24 HPI - Anesthesia Eval Consult details Narrative: 59yo M for Colonoscopy PMFSH Active Problems Active Problems: All Active Problems Hemorrhoid (Acute) Low back pain (Acute) URI, acute (Acute) Encounter for routine adult physical exam with abnormal findings (Acute) Cough (Acute) Screening for colon cancer (Acute) Lipoma (Acute) Screening for prostate cancer (Acute) Physical exam (Acute) Tear of medial meniscus of left knee (Acute) Aspiration pneumonia (Acute) Abnormal CT scan, chest (Acute) Pulmonary aspiration of gastric contents (Acute) Pneumonia (Acute) Left knee pain (Acute) Muscle spasm (Acute) Flank pain (Acute) GERD without esophagitis (Acute) Bleeding hemorrhoids (Acute) Pulmonary nodules (Acute) Pneumonitis (Acute) Adrenal benign neoplasm (Acute) Morbid obesity (Acute) NORMA (obstructive sleep apnea) (Acute) Restrictive lung disease secondary to obesity (Acute) GERD (gastroesophageal reflux disease) (Acute) Past Medical History Medical History (Updated 04/28/24 @ 14:23 by Tip Rivera MD) Bleeding hemorrhoids Bradycardia Pulmonary nodules Pneumonitis Adrenal benign neoplasm Morbid obesity Hx of tinnitus Hx of chemical exposure Restrictive lung disease secondary to obesity NORMA (obstructive sleep apnea) GERD (gastroesophageal reflux disease) Family History Family history of problems with anesthesia: No Surgical History Surgical History (Updated 05/24/24 @ 14:06 by Diann Barber RN) History of esophagogastroduodenoscopy (EGD) (08/20/23) Hx of colonoscopy History of left knee surgery History of esophagogastroduodenoscopy (EGD) History of shoulder surgery Hx of adenoidectomy History of Problems with Anesthesia: No Social History Social History Household Members: Spouse Housing: House Are you a primary health care assistant to a significant other at home: No Do you presently have visiting nurse or other home services: No Alcohol intake: current Alcohol intake frequency: holidays/special occasions only Alcohol type: beer Patient Tobacco Use Status: Former Tobacco user Tobacco use type: Cigarette Years Smoked: 40 e-Cigarette/Vaping Use: Never Used Second Hand Smoke Exposure: No Use of substances other than those prescribed or required for medical reasons: Yes Substance Use Type: Marijuana Are you DNR?: No Advance Directives: No Advance Directives Information Provided: Yes Poor oral hygiene: No service: No Current occupational status: employed Current occupation: rt handed/[employer] Cognitive needs: No Hearing needs: No Vision needs: No Meds Allergies Allergy/AdvReac Type Severity Reaction Status Date / Time No Known Allergies Allergy Verified 04/28/24 14:10 Exam Height,Weight and Vital Signs: Height 5 ft 11 in Weight 134.263 kg Assessment and Plan Assessment Anesthesia Assessment: Chart Reviewed Final Anesthetic Review Family History of Problems with Anesthesia: No History of Problems with Anesthesia: No Documented by User: Miko Infante MD 05/26/24 08:33 PMFSH Past Medical History Medical History (Updated 04/28/24 @ 14:23 by Tip Rivera MD) Bleeding hemorrhoids Bradycardia Pulmonary nodules Pneumonitis Adrenal benign neoplasm Morbid obesity Hx of tinnitus Hx of chemical exposure Restrictive lung disease secondary to obesity NORMA (obstructive sleep apnea) GERD (gastroesophageal reflux disease) Surgical History Surgical History (Updated 05/24/24 @ 14:06 by Diann Barber RN) History of esophagogastroduodenoscopy (EGD) (08/20/23) Hx of colonoscopy History of left knee surgery History of esophagogastroduodenoscopy (EGD) History of shoulder surgery Hx of adenoidectomy Social History Social History Household Members: Spouse Housing: House Are you a primary health care assistant to a significant other at home: No Do you presently have visiting nurse or other home services: No Alcohol intake: current Alcohol intake frequency: holidays/special occasions only Alcohol type: beer Patient Tobacco Use Status: Former Tobacco user Tobacco use type: Cigarette Years Smoked: 40 e-Cigarette/Vaping Use: Never Used Second Hand Smoke Exposure: No Use of substances other than those prescribed or required for medical reasons: Yes Substance Use Type: Marijuana Are you DNR?: No Advance Directives: No Advance Directives Information Provided: Yes Poor oral hygiene: No service: No Current occupational status: employed Current occupation: rt handed/[employer] Cognitive needs: No Hearing needs: No Vision needs: No Meds Allergies Allergy/AdvReac Type Severity Reaction Status Date / Time No Known Allergies Allergy Verified 04/28/24 14:10 Exam Airway Mallampati Class: II TM Dist: <=3cm Neck ROM: Full Loose/Missing/Broken Teeth: No Heart: ok Lungs: ok Assessment and Plan Assessment Anesthesia Assessment: Anesthesia Plan Discussed Final Anesthetic Review NPO: Yes ASA Class: III Final Preanesthetic Review: No Changes in Pt Med Stat, Meds/Allgs Chart Reviewed, Consent Obtained/Reviewed and Anes Risks/Benef Reviewed Patient Risk: Intermediate Procedure Risk: Low Anesthetic Plan Anesthetic Plan: MAC: and Agree w/ Assess. and Plan Disposition: Standard PACU
[2024-05-26 07:07] VITALS: BMI 40.9
[2024-05-26 07:19] VITALS: BP 160/84; PULSE 48; RESP 16; TEMP 36.2; O2SAT 96
[2024-05-26] MEDS: Lactated Ringers 1,000 ML 100 ML IVCONT (07:29)
--- NOTE | 2024-05-26 08:18 | MHC.SHP ---
Pre-Procedural Eval Section A - 24 Hr Update-Section A only Date of Service: 05/26/24 Section B - Complete if H&P > 30 days Chief Complaint: screening Relevant Family History (Specify if Yes): No Relevant Social History: None Present Medications: see Short Stay Collaborative assessment Medical History: Significant History (Bleeding hemorrhoids Bradycardia Pulmonary nodules Pneumonitis Adrenal benign neoplasm Morbid obesity Hx of tinnitus Hx of chemical exposure Restrictive lung disease secondary to obesity NROMA (obstructive sleep apnea) GERD (gastroesophageal reflux disease)) History of Previous Operations: Relevant previous surgery/procedure and date(s) (History of esophagogastroduodenoscopy (EGD) (08/20/23) Hx of colonoscopy History of left knee surgery History of esophagogastroduodenoscopy (EGD) History of shoulder surgery Hx of adenoidectomy) Allergies: Allergies Allergy/AdvReac Type Severity Reaction Status Date / Time No Known Allergies Allergy Verified 04/28/24 14:10 Review of Systems Sugical H&P ROS: Negative: Constitution, Cardiovascular, Respiratory, Neurological, Psychiatric, Hem-Onc, Allergic/Immunologic, Gastrointestinal, Genitourinary, Musculoskeletal, Integumentary, Endocrine and Eyes/Ears/Nose/Throat Exam Surgical H&P Exam: Normal: HEENT, Normal: Heart, Normal: Lungs, Normal: Extremities, Normal: Abdomen, Normal: Skin and Normal: Neurological Plan Diagnosis/Plan: Unchanged I have reviewed the history and physical and performed a pertinent physical examination on my patient. No changes have occurred unless specified. Time Spent With Patient Time: Total time managing care of this patient today ____ minutes.
--- NOTE | 2024-05-26 08:58 | HO.OPN-COLON ---
Colonoscopy Operative Note Operative Note Date of Service: 05/26/24 Narrative: Operative Information Procedure Description: Colonoscopy Indication: hx of colon polyps Anesthesia: MAC COLONOSCOPY Instrument: Olympus variable stiffness adult scope 190L Colonoscopy Monitoring: Vital signs and clinical assessment, continuous EKG monitoring, Pulse oximetry, Carbon Dioxide monitoring and blood pressure monitoring were done throughout the procedure. Colon withdrawal time was 15 minutes. Procedure: The patient was placed in the left lateral decubitis position and pre-procedure medications were administered. After a digital rectal examination of the ano-rectum, the video colonoscope was inserted into the rectum and advanced through the colon to the cecum/TI. The colonoscope was slowly withdrawn in a retrograde panoramic fashion and the colon mucosa was carefully examined including a retroflexed view of the rectum. Findings and interventions are described below. Procedure Difficulty: difficult, tight junction at sigmoid Findings: Terminal Ileum-normal Cecum: x 1 flat polyp 8 mm lifted with eleview and removed with cold snare, x 1 3-4 mm sessile polyp removed with cold forceps Ascending Colon: x 5 sessile polyps 8-10 mm removed with cold snare Transverse Colon -normal Descending Colon: x 1 sessile polyp 6-8 mm removed with cold snare Sigmoid Colon: normal Rectum: Retroflexion with small internal hemorrhoids seen, grade I Anorectum - normal Intervention: cold snare, eleview injection and cold forceps Colon preparation: [place] Bowel Preparation Scale Right colon; 2 Transverse colon: 1-2 Left colon; 1-2 (0 = Unprepared colon segment with mucosa not seen due to solid stool that cannot be cleared. 1 = Portion of mucosa of the colon segment seen, but other areas of the colon segment not well seen due to staining, residual stool and/or opaque liquid. 2 = Minor amount of residual staining, small fragments of stool and/or opaque liquid, but mucosa of colon segment seen well. 3 = Entire mucosa of colon segment seen well with no residual staining, small fragments of stool or opaque liquid) Impression and Post Procedure Diagnosis: colon polyps x 8 internal hemorrhoids Plan: High fiber diet leaflet Avoid straining at stool, epsom salts and sitz bath, anusol supps or cream Repeat Colonoscopy in 6-12 months or earlier if clinically indicated Above findings were reviewed with the patient and relevant handouts were provided if indicated.
[2024-05-26 09:05] VITALS: BP 123/62; PULSE 58; RESP 17; TEMP 36.9; O2SAT 93
[2024-05-26 09:11] VITALS: BP 123/57; PULSE 51; RESP 18; O2SAT 97
[2024-05-26 09:23] VITALS: BP 117/49; PULSE 50; RESP 18; TEMP 36.6; O2SAT 97
== END 2024-05-26 09:43 | disposition home or self-care (01) ==
PROVIDERS: PCP Nurse Practitioner Family; Visit Provider Internal Medicine Gastroenterology
PROC: 0DJD8ZZ Inspection of Lower Intestinal Tract, Via Natural or Artificial Opening Endoscopic (ICD-10-PCS; CPT 45378; principal; 2024-05-26 08:30)
DX: Z12.11 Encounter for screening for malignant neoplasm of colon (principal); Z86.0101 Personal history of adenomatous and serrated colon polyps; D12.0 Benign neoplasm of cecum; D12.2 Benign neoplasm of ascending colon; D12.4 Benign neoplasm of descending colon; K64.0 First degree hemorrhoids; K59.00 Constipation, unspecified; K21.9 Gastro-esophageal reflux disease without esophagitis; D35.00 Benign neoplasm of unspecified adrenal gland; E66.2 Morbid (severe) obesity with alveolar hypoventilation; R91.8 Other nonspecific abnormal finding of lung field; R00.1 Bradycardia, unspecified; Z79.899 Other long term (current) drug therapy; Z86.018 Personal history of other benign neoplasm; Z98.890 Other specified postprocedural states; Z87.891 Personal history of nicotine dependence
CPT/HCPCS: 45385; 45380; 45381; 88305; J2003; J2704

== ENCOUNTER → 2024-05-26 06:59 | Outpatient (BNV) | payer OTHER, SELFPAY | PROVIDERS: PCP Nurse Practitioner Family; Visit Provider Internal Medicine Gastroenterology | DX: Z12.11 Encounter for screening for malignant neoplasm of colon (principal); Z86.0100 Personal history of colon polyps, unspecified; D12.0 Benign neoplasm of cecum; D12.2 Benign neoplasm of ascending colon; D12.4 Benign neoplasm of descending colon; K64.0 First degree hemorrhoids | CPT/HCPCS: 45380; 45381; 45385 ==

== ENCOUNTER 2024-06-02 14:45 | Outpatient (REF) | payer OTHER, SELFPAY ==
[2024-06-02 16:13] LABS: Blood Urea Nitrogen 14 mg/dL (9-16); Estimated Glomerular Filt Rate > 60
== END 2024-06-02 14:46 | disposition home or self-care (01) ==
LOC: HO.HMGCLDS 14:45
PROVIDERS: PCP Nurse Practitioner Family; Visit Provider Internal Medicine Gastroenterology
DX: Z00.01 Encounter for general adult medical examination with abnormal findings (principal); K59.00 Constipation, unspecified; M54.50 Low back pain, unspecified
CPT/HCPCS: 36415; 82565; 84520

== ENCOUNTER 2024-06-15 11:30 | Outpatient (REF) | payer OTHER, SELFPAY ==
--- NOTE | ~2024-06-15 | CT_ITS ---
EXAMINATION: CT ABDOMEN PELVIS WITH IV CONTRAST HISTORY: K59.00 - Constipation, unspecified COMPARISON: Comparison is made with the prior examination dated 08/05/2020. TECHNIQUE: CT scan of the abdomen and pelvis was performed following administration of 85 mL Omnipaque 350 using standard departmental protocol. Coronal and sagittal reformatted images were generated and reviewed. Oral contrast material was not administered at the request of the referring physician. This CT exam was performed with one or more of the following dose reduction techniques: automated exposure control, adjustment of the mA and/or kV according to patient size, use of iterative reconstruction technique. DLP: 929 mGy-cm FINDINGS: LOWER CHEST: The visualized lung bases are clear. There is no pleural effusion. CARDIOVASCULATURE: The heart is normal in size. There is no pericardial effusion. LIVER: The liver is normal in size and contour, but demonstrates diffusely decreased attenuation, consistent with steatosis. No liver mass is identified. The hepatic and portal veins are patent. GALLBLADDER / BILE DUCTS: The gallbladder is unremarkable. There is no intra or extrahepatic biliary ductal dilatation. SPLEEN: The spleen is normal in size. No focal splenic lesion is identified. PANCREAS: The pancreas is unremarkable in appearance. ADRENAL GLANDS: Again seen are 3 myelolipomas of the right adrenal gland measuring up to 3.8 cm in size. There is a 5.2 cm left adrenal myelolipoma. KIDNEYS/RETROPERITONEUM: No renal calculi are identified. There is no hydronephrosis. No renal masses are identified. LYMPH NODES: No abdominal or pelvic lymphadenopathy. VASCULATURE: The abdominal aorta is normal in caliber. MESENTERY/PERITONEUM: No free fluid. No masses. There is no free intraperitoneal gas. STOMACH: The stomach is collapsed, limiting evaluation. SMALL BOWEL: The small bowel is normal in caliber. COLON: There is a small to moderate amount of stool in the colon, mostly in the ascending and transverse colon. APPENDIX: Normal. URINARY BLADDER/PELVIC ORGANS: The urinary bladder is unremarkable. The prostate is normal in size. BONES / SOFT TISSUES: There is degenerative disc disease of the spine. CT/CT abdomen pelvis w IV con IMPRESSION: 1. Small to moderate amount of stool in the colon, mostly located in the ascending and transverse colon. 2. Hepatic steatosis. 3. Multiple bilateral adrenal myelolipomas as described. Electronically signed by: Marvin Parmar MD 06/15/2024 02:56 PM EDT
[2024-06-15] MEDS: Barium Sulfate Oral (Berry) 450 ML ORAL.SUSP 900 ML PO (14:34)
[2024-06-15] MEDS: iohexoL 350 MG/ML 100 ML INFUS..BTL 85 ML IV (14:35)
== END 2024-06-15 11:31 | disposition home or self-care (01) ==
LOC: HO.CT 11:30
PROVIDERS: PCP Nurse Practitioner Family; Visit Provider Internal Medicine Gastroenterology
DX: K59.00 Constipation, unspecified (principal)
CPT/HCPCS: 74177; Q9967

== ENCOUNTER → 2024-06-15 11:33 | Outpatient (BNV) | payer OTHER, SELFPAY | PROVIDERS: PCP Nurse Practitioner Family; Visit Provider Radiology Diagnostic Radiology | DX: K56.41 Fecal impaction (principal); K76.0 Fatty (change of) liver, not elsewhere classified; D35.00 Benign neoplasm of unspecified adrenal gland | CPT/HCPCS: 74177 ==

== ENCOUNTER 2024-07-27 11:05 | Outpatient (AMB) | payer OTHER, SELFPAY ==
[2024-07-27 11:09] VITALS: BP 130/80; PULSE 86; TEMP 37.3; O2SAT 96; BMI 41.6
--- NOTE | 2024-07-27 11:09 | AM.OFFWIN_ITS ---
Intake Vital Signs 07/27/24 11:09 Height 5 ft 11 in Weight 298 lb BMI 41.6 BP 130/80 Blood Pressure Location Lt brachial Position Sitting Pulse 86 Pulse Source Pulse Oximeter Temp 99.2 F Temp Source Oral Pulse Oximetry (%) 96 Intake Visit Reasons: EP Chest congestion, cough, sore throat 5 days Patient Tobacco Use Status: Former Tobacco user Allergies No Known Allergies Allergy (Verified 07/27/24 11:27) Do you need a note to return to daycare/school/sports/work: Yes HPI HPI Comments History of Present Illness Details History - The patient is a 59-year-old male pres enting with cough, congestion, and sore throat with associated symptoms. - Symptoms initiated on Thursday, leadin g to current absence from work and were described as persistent cough, congestion, sore throat, tiredness, and episodes of hot flashes. - There was a single episode of diarrhea reported without any episodes of vomiting. - The patient has been experiencing redu shahzad appetite and decreased fluid intake. - Cough occasionally produces greenish p hlegm but no sinus pressure or ear pain was reported. - The patient self-administered Tiffanie-Jalyn tzer Cold as symptomatic relief. - There is a noted fatigue sensation, ex acerbated by physical workload; soreness was believed to be work-related. - He declined influenza and COVID vaccin ations this year. - She denies CP, SOB, abd pain, n/v/d, o r sick contacts. Physical Exam General: Cooperative, healthy appearing, comfortable and no acute distress Head: Normal to inspection Ears: Hearing grossly normal bilaterally, external ears normal and TM's normal bilaterally Nose: Normal external nose present, Normal nares present and No nasal discharge present Face and sinus: Normal facial exam and Yes sinuses nontender Mouth: Normal oral and palatal mucosa present and moist mucous membranes Throat: Yes tonsils normal, Yes uvula midline. Posterior oropharynx no exudates or erythema Eyes: Appearance normal, both eyes and all related structures Neck: Normal visual inspection Respiratory: Clear to auscultation bilaterally. Normal respiratory effort, able to speak in complete sentences, Actively coughing, no respiratory distress, not tachypneic, no tripod positioning and no use of accessory muscles Cardiovascular: Regular rate and rhythm. Normal S1 and S2 Skin: No rashes or lesions noted Patient was informed and verbally consented to the use of an ambient scribe for clinic note documentation during this visit [facility] Medical History (Updated 05/26/24 @ 09:45 by Cliff Pace MD) Bleeding hemorrhoids Bradycardia Pulmonary nodules Pneumonitis Adrenal benign neoplasm Morbid obesity Hx of tinnitus Hx of chemical exposure Restrictive lung disease secondary to obesity NORMA (obstructive sleep apnea) GERD (gastroesophageal reflux disease) Surgical History (Updated 05/24/24 @ 14:06 by Diann Barber RN) History of esophagogastroduodenoscopy (EGD) (08/20/23) Hx of colonoscopy History of left knee surgery History of esophagogastroduodenoscopy (EGD) History of shoulder surgery Hx of adenoidectomy Social History Household Members: Spouse Housing: House Are you a primary field care manager to a significant other at home: No Do you presently have visiting nurse or other home services: No Alcohol intake: current Alcohol intake frequency: holidays/special occasions only Alcohol type: beer Patient Tobacco Use Status: Former Tobacco user Tobacco use type: Cigarette Years Smoked: 40 e-Cigarette/Vaping Use: Never Used Second Hand Smoke Exposure: No Substance Use Type: Marijuana service: No Current occupational status: employed Current occupation: rt handed/[employer] Cognitive needs: No Hearing needs: No Vision needs: No Review of Systems Const All systems reviewed & are unremarkable except as noted in HPI and below Physical Exam Vital Signs: Last Vital Signs Temp 99.2 F 07/27/24 11:09 Pulse 86 07/27/24 11:09 BP 130/80 07/27/24 11:09 Pulse Ox 96 07/27/24 11:09 BMI result Body Mass Index 41.6 Results AMB Rapid Strep AMB Rapid Strep Negative Last Edit by Ramón Harrington CMA on 07/27/24 12 :00 Results Reviewed Results Reviewed: Laboratory Last Values Strep Scn Rapid Clinic Negative 07/27/24 11:58 Assessment & Plan Assessment & Plan (1) URI, acute: Code(s): J06.9 - Acute upper respiratory infection, unspecified Plan Most likely URI vs covid vs flu vs CAP vs bronchitis Rapid strep is negative Plan - Will order CXR in the office- negative - Will order respiratory panel - Start z-grady - Tessalon perles as needed for cough - Albuterol as needed - Tylenol or Motrin as needed - Drink lots of fluids - Diet as tolerated - Follow up with PCP Orders: Orders AMB Rapid Strep Screen Today Z13.9 - Encounter for screening, unspecified XR chest 2V Today R05.9 - Cough, unspecified SARS-CoV2/FLU/RSV Today R09.89 - Other specified symptoms and signs involving the circulatory and respiratory systems Medications: New azithromycin For 250 mg dose pack: take 500 mg today (day 1), then 250 mg for 4 days (days 2-5) PO 6 tabs 0RF albuterol sulfate 90 mcg/actuation 2 puffs inhalation Q6H PRN 8.5 grams 0RF shortness of breath or wheezing or cough benzonatate 100 mg PO bid-tid PRN 21 caps 0RF Cough 7 days Coding Level of Care Code Est Pt Level 4 (43710) Diagnoses URI, acute J06.9
== END 2024-07-27 12:32 | disposition home or self-care (01) ==
PROVIDERS: PCP Nurse Practitioner Family; Visit Provider Physician Assistant Medical
DX: J06.9 Acute upper respiratory infection, unspecified (principal); J02.9 Acute pharyngitis, unspecified

== ENCOUNTER 2024-07-27 12:05 | Outpatient (REF) | payer OTHER, SELFPAY ==
--- NOTE | ~2024-07-27 | XR_ITS ---
EXAMINATION: XR CHEST CLINICAL INFORMATION: R05.9 - Cough, unspecified COMPARISON: December 03, 2021. TECHNIQUE: 2 views of the chest were obtained. FINDINGS: Pulmonary reticular pattern. No consolidation pleural effusion or pneumothorax. No hyperinflation. Cardiomediastinal silhouette size is normal. Mild multilevel thoracolumbar spondylosis. XR/XR chest 2V IMPRESSION: No acute airspace disease. Electronically signed by: Julio Chamberlain MD 07/27/2024 12:20 PM EDT
[2024-07-27 14:20] LABS: Influenza A PCR NEGATIVE (Negative); Influenza B PCR NEGATIVE (Negative); Resp Syncy Virus RNA Qual PCR NEGATIVE (Negative); SARS COV2 PCR INHOUSE NEGATIVE (Negative)
== END 2024-07-27 12:06 | disposition home or self-care (01) ==
LOC: HO.HMGCX 12:05
PROVIDERS: PCP Nurse Practitioner Family; Visit Provider Physician Assistant Medical
DX: J06.9 Acute upper respiratory infection, unspecified (principal); R05.9 Cough, unspecified; R09.89 Other specified symptoms and signs involving the circulatory and respiratory systems
CPT/HCPCS: 0241U; 71046

== ENCOUNTER → 2024-07-27 12:09 | Outpatient (BNV) | payer OTHER, SELFPAY | PROVIDERS: PCP Nurse Practitioner Family; Visit Provider Radiology Diagnostic Radiology | DX: R05.9 Cough, unspecified (principal) | CPT/HCPCS: 71046 ==

== ENCOUNTER 2024-11-24 13:39 | Outpatient (AMB) | payer OTHER, SELFPAY ==
--- NOTE | 2024-11-24 13:48 | MHC.PC.OV ---
Vital Signs 11/24/24 14:09 Height 5 ft 11 in Weight 300 lb BMI 41.8 BP 160/86 H Blood Pressure Location Lt brachial Position Sitting Respiration 16 Pulse 61 Pulse Source Pulse Oximeter Pulse Oximetry (%) 96 Oxygen Delivery Method Room Air Intake Visit Reasons: Annual PE Flakeboard Line Tender Required: No Accompanied by: Self / Same As Patient Allergies No Known Allergies Allergy (Verified 11/24/24 14:57) Medication List - Last Reconciled 11/24/24 by JOY JimenesP- pantoprazole 40 mg PO DAILY 90 days Tobacco use date assessed: 11/24/24 Dental Screening Dental Screen Date: 11/24/24 Did you have a dental visit in the last 12 months?: Yes Did you have a dental problem in the last 6 months where you did not have access to dental care?: No Was dental information given to patient?: Patient has dentist HPI Annual PE HPI Details History of Present Illness The patient is a 59-year-old male presenting for a follow-up for a physical exam. He has a history of morbid obesity and is currently has hypertension Preventative care measures include an up-to-date colonoscopy, and labs including PSA have been ordered. Health Maintenance - Colonoscopy is up to date - Labs including PSA have been ordered -declined all vaccinations Social History Review of Systems - Cardiovascular: Denies chest pain, dyspnea, samuel, blurred vision, dizziness - Gastrointestinal: Denies abdominal pain, hematochezia, constipation, diarrhea - : denies any urinary issues - Psychiatric: Denies suicidal ideation, homicidal ideation Physical Exam General: Cooperative, healthy appearing, comfortable, no acute distress and well developed, noted to be morbidly obese Orientation: Patient oriented x3 Limitations: No limitations Head: Normal to inspection Ears: Hearing grossly normal bilaterally Nose: Normal external nose present Face and sinus: Normal facial exam Eyes: Appearance normal, both eyes and all related structures Neck: Normal visual inspection and Yes full ROM Respiratory: Normal respiratory effort and able to speak in complete sentences. Clear to auscultation bilaterally Cardiovascular: Regular rate and rhythm. Normal S1 and S2, faint systolic murmur GI: Normal to inspection. Soft to palpation and nontender : testicles without masses/lesions and no hernias appreciated Skin: No rashes or lesions noted Neuro: Patient oriented x3 Extremities: Normal to inspection Results Plan 1. Morbid Obesity The patient is noted to be morbidly obese, which requires ongoing management. 2. Essential Hypertension The patient will be managing hypertension with a low dose of losartan. He is advised to monitor his blood pressure at home and report the values for medication adjustment in the very near future Discussion Notes Patient Instructions - Monitor blood pressure at home and report values for medication adjustment. [facility] Medical History Bleeding hemorrhoids Bradycardia Pulmonary nodules Pneumonitis Adrenal benign neoplasm Morbid obesity Hx of tinnitus Hx of chemical exposure Restrictive lung disease secondary to obesity NORMA (obstructive sleep apnea) GERD (gastroesophageal reflux disease) Surgical History History of esophagogastroduodenoscopy (EGD) (08/20/23) Hx of colonoscopy History of left knee surgery History of esophagogastroduodenoscopy (EGD) History of shoulder surgery Hx of adenoidectomy Social History Household Members: Spouse Housing: House Are you a primary manager respiratory care to a significant other at home: No Do you presently have visiting nurse or other home services: No Alcohol intake: current Alcohol intake frequency: holidays/special occasions only Alcohol type: beer Patient Tobacco Use Status: Former Tobacco user Tobacco use type: Cigarette Years Smoked: 40 e-Cigarette/Vaping Use: Never Used Second Hand Smoke Exposure: No Substance Use Type: Marijuana service: No Current occupational status: employed Current occupation: rt handed/[employer] Cognitive needs: No Hearing needs: No Vision needs: No Questionnaire Thrive Questionnaire Date Thrive assessed: 09/23/23 I am a: Patient What is your living situation today?: I choose not to answer this question Within the past 12 months, did the food you bought not last and you didn't have the money to get more?: I choose not to answer this question Within the past 12 months, did you worry whether your food would run out before you got money to buy more?: I choose not to answer this question Do you have trouble paying for medicines?: I choose not to answer this question Do you have trouble getting transportation to medical appointments?: I choose not to answer this question Do you have trouble paying your heating and electricity bill?: I choose not to answer this question Do you have trouble taking care of your child, family member or friend?: I choose not to answer this question Do you have trouble with day-to-day activities such as bathing, preparing meals, shopping, managing finances, etc.?: I choose not to answer this question Are you currently unemployed and looking for a job?: I choose not to answer this question Are you interested in more education?: I choose not to answer this question Please select the resources that you would like help with: None Currently or been in a relationship where the following occur: I choose not to answer THRIVE Score: 0 SAGE-7 AMB Questionnaire SAGE-7 Date SAGE - 7 assessed: 11/24/24 Feeling nervous, anxious, or on edge: 0 = Not at all Not being able to stop or control worryin = Not at all Worrying too much about different things: 0 = Not at all Trouble relaxin = Not at all Being so restless that it is hard to sit still: 0 = Not at all Becoming easily annoyed or irritable: 0 = Not at all Feeling afraid as if something awful might happen: 0 = Not at all Total SAGE-7 score (0-4 normal; 5-9 mild; 10-14 moderate; 15-21 severe): 0 Source: Developed by Drs. Marvin Mcmahan, Shannan Gurorla, Anupam Thornton and colleagues, with an educational isabel from [employer]. SAGE-7 Assessment Billing SAGE-7 Assessment Tool: SAGE-7 Assessment 64950 Physical exam (Primary Care) Vital Signs: Last Vital Signs Pulse 61 11/24/24 14:09 Resp 16 11/24/24 14:09 BP 160/86 H 11/24/24 14:09 Pulse Ox 96 11/24/24 14:09 Oxygen Delivery Method Room Air 11/24/24 14:09 BMI result Body Mass Index 41.8 Tobacco/Smoking Status: Tobacco use Status Tobacco use date assessed 11/24/24 11/24/24 14:17 Patient Tobacco Use Status Former Tobacco user 11/24/24 13:49 Tobacco use type Cigarette 11/24/24 13:49 e-Cigarette/Vaping Use Never Used 11/24/24 13:49 Thrive Assessment: Date of Thrive Assessment Date Thrive assessed 09/23/23 11/24/24 13:49 Currently or been in a relationship where the following occur: I choose not to answer Coding Level of Care Code Est Pt Level 3 (96741) Est Pt Prev Care 40-64y(03297) Diagnoses Systolic murmur R01.1 HTN (hypertension) I10 Encounter for routine adult physical exam with abnormal findings Z00.01 Additional Codes SAGE-7 Assessment Billing - SAGE-7 Assessment Tool: SAGE-7 Assessment 64247 ([id number]) Assessment & Plan Assessment & Plan (1) Systolic murmur: Code(s): R01.1 - Cardiac murmur, unspecified Category: Medical (2) HTN (hypertension): Code(s): I10 - Essential (primary) hypertension Category: Medical (3) Encounter for routine adult physical exam with abnormal findings: Code(s): Z00.01 - Encounter for general adult medical examination with abnormal findings Category: Medical Plan . Orders: Orders CA echo transthoracic complete Today I10 - Essential (primary) hypertension, R01.1 - Cardiac murmur, unspecified Medications: New losartan 25 mg PO DAILY 90 tabs 0RF
[2024-11-24 14:09] VITALS: BP 160/86; PULSE 61; RESP 16; O2SAT 96; BMI 41.8
--- OUTSIDE RECORDS SUMMARY | 2024-11-24 17:25 | XMS_ITS | Clinical Summary ---
Author Organization [facility] Address [email or web address] [place] [address] Phone Care Team Providers Care Animal Damage Control Agent Name Role Phone Isiah Mckay NP Primary Care Provider + Allergies No known active allergies Medications pantoprazole (PROTONIX) 40 MG tablet Take 40 mg by mouth daily. Active Social History Tobacco Use Types Packs/Day Years Used Date Smoking Tobacco: Former Cigarettes Q uit: 2010 Smokeless Tobacco: Never Alcohol Use Standard Drinks/Week Comments Yes 0 (1 standard drink = 0.6 oz pur e alcohol) weekends occ Education Answer Date Recorded Are you interested in more education? Not on arlin e 06/06/2022 Are you concerned about learning? Not on file 06/06/2022 No 06/06/2022 No 06/06/2022 Digital Access Answer Date Recorded No 07/05/2022 No 07/05/2022 No 07/05/2022 Reliable internet access at home? Not on file 07/05/2022 Device with a working camera? Not on file Sex and Gender Information Value Date Recorded Sex Assigned at Not on file Legal Sex Male 9:53 AM EST Gender Identity Not on file Sexual Orientation Not on file Last Filed Vital Signs Vital Sign Reading Time Taken Comments Blood Pressure 126/74 04/22/2018 12:35 PM EDT Pulse 61 04/22/2018 12:10 PM EDT Temperature 36.4 C (97.5 F) 04/22/2018 11:45 AM EDT Respiratory Rate 16 04/22/2018 12:35 PM EDT Oxygen Saturation 95% 04/22/2018 12:35 PM EDT Inhaled Oxygen Concentration - - Weight 135.2 kg (298 lb) 04/15/2018 1:55 PM EST Height 180.3 cm (5' 11 ) 04/15/2018 1:55 PM EST Body Mass Index 41.56 04/15/2018 1:55 PM EST Plan of Treatment Health Maintenance Due Date Last Done Comments LIPID PANEL 1967 DEPRESSION SCREENING 1979 SMOKING Hx and SMOKELESS TOB ACCO SCREENING 05/09/1980 HEPATITIS C SCREENING 05/09/1985 HIV ONE-TIME SCREENING (18-6 5 YEARS) 05/09/1985 COLOGUARD 05/09/2012 COLONOSCOPY 05/09/2012 COLORECTAL CANCER SCREENING 05/09/2012 FIT TEST 05/09/2012 FOBT 05/09/2012 SIGMOIDOSCOPY 05/09/2012 VIRTUAL COLONOSCOPY 05/09/2012 PNEUMOCOCCAL VACCINES (50+ y ears) (1 of 1 - PCV) 05/09/2017 ZOSTER VACCINES (1 of 2) 05/09/2017 INFLUENZA VACCINE (#1) 2024 COVID-19 VACCINE (1 - 2024-2 6 season) 2024 Adult Td,Tdap Booster 06/17/2027 06/16/2017 RSV VACCINE (1 - 1-dose 75+ series) 05/09/2042 HEPATITIS A VACCINES Aged Out No long er eligible based on patient's age to complete this topic HIB VACCINES Aged Out No longer eligi ble based on patient's age to complete this topic MENINGOCOCCAL VACCINES (ACWY) Aged Out No longer eligible based on patient's age to complete this topic MENINGOCOCCAL VACCINES (B) Aged Out N o longer eligible based on patient's age to complete this topic Medical Devices Not on file Insurance [facility] Care Teams Animal Damage Control Agent Relationship Specialty Start Date End Date Isiah Mckay NP [address] [place] [address] PCP - General Family Medicine 04/13/18 Additional Source Comments The information contained in this document represents components of the legal health record. It is not the complete legal health record.[facility]
--- OUTSIDE RECORDS SUMMARY | 2024-11-24 17:25 | XMS_ITS | Encounter Summary ---
Author Organization [facility] Address [address] [place] [phone] Phone Care Team Providers Care Swine Extension Field Specialist Name Role Phone Isiah Mckay NP Primary Care Provider + Encounter Details Date Type Department Care Team (Late st Contact Info) Description 04/22/2018 Procedure Pass OR Admitting Dept - Virtual Department [address] [place] [address] Social History Tobacco Use Types Packs/Day Years Used Date Smoking Tobacco: Former Cigarettes Q uit: 2010 Smokeless Tobacco: Never Alcohol Use Standard Drinks/Week Comments Yes 0 (1 standard drink = 0.6 oz pur e alcohol) weekends occ Sex and Gender Information Value Date Recorded Sex Assigned at Not on file Legal Sex Male 9:53 AM EST Gender Identity Not on file Sexual Orientation Not on file documented as of this encounter Plan of Treatment Not on file documented as of this encounter Visit Diagnoses Not on filedocumented in this encounter Care Teams Swine Extension Field Specialist Relationship Specialty Start Date End Date Isiah Mckay NP [address] [place] [address] PCP - General Family Medicine 04/13/18 documented as of this encounter Additional Source Comments The information contained in this document represents components of the legal health record. It is not the complete legal health record.[facility]
== END 2024-11-24 14:55 | disposition home or self-care (01) ==
LOC: HO.HMCC 13:39
PROVIDERS: PCP Nurse Practitioner Family; Visit Provider Nurse Practitioner Family
DX: Z00.01 Encounter for general adult medical examination with abnormal findings (principal); R01.1 Cardiac murmur, unspecified; I10 Essential (primary) hypertension

== ENCOUNTER → 2024-11-24 13:39 | Outpatient (BNVA) | payer OTHER, SELFPAY | PROVIDERS: PCP Nurse Practitioner Family; Visit Provider Nurse Practitioner Family | DX: Z00.01 Encounter for general adult medical examination with abnormal findings (principal); E66.01 Morbid (severe) obesity due to excess calories; I10 Essential (primary) hypertension; R01.1 Cardiac murmur, unspecified; Z68.41 Body mass index [BMI] 40.0-44.9, adult | CPT/HCPCS: 96127 ==

== ENCOUNTER 2024-11-28 08:10 | Outpatient (AMB) | payer OTHER, SELFPAY ==
--- NOTE | 2024-11-28 08:11 | MHC.OFFVIS ---
Intake Visit Reasons: 8 mo Intake Note: Alonzo presents as a telehealth today. CC: states that since his last appt he has had a CT scan and a procedure and is planned to have another coming up. Allergies No Known Allergies Allergy (Verified 11/24/24 14:57) HPI HPI 8 mo: Details: 59 yr old m being seen for f/u for GERD RECAP: he haD been having chronic hoarseness saw ENt and think its coming from GERD he is on protonix 20 mg bid he feels he still has heartburn, thinks omeprzole worked better he is also due another colonoscopy due to hx of polyps he does have NORMA< not on any treatment TESTS: EGD/colonoscopy at [facility]- Grade b esophagitis, 6 polyps removed rept egd/colon 09/2018-patulous GEJ< polyps removed, erosive esophagitis grade B, , moderate hemorrhoids he saw dr Hutton and was sent for manometry but he couldn;t tolerate so surgery WAS not being considered ws switched to lansoprazole doesn't think its helping still feels food sticking upper esophagus, eventually goes away denies diarrhea or constipation appetite is good, weight is stable I tried to get aciphex but denied so went to omeprazole 20 mg, increased again to omeprazole 40 mg he did go to [facility] but not keen on getting pH probe manometry instead repeat EGD: grade B esophagitis, grade III flap, v lax LES ++ He had admission 07/2020 with hemoptysis and pulmonary infiltrate, and had EGD with Dr Robles which was normal without any esophagitis colo 06/03- several polyps removed, tight sigmoid junction, prep fair -small int hemorrhoids I ordered CT because of this- adrenal myelolipomas, constipation, steatosis INTERIM: HE is happy with heartburn control, only needing PPI once a day no issues with abdominal pain appettite is good reviewed Ct results A/P: 1/ Recurrent GERD with patulous LES, controlled to some extent by PPI ,carafate and H2B - s/p ARAT--now on PPI once daily and happy with sx control 2/ due colonoscopy repeat due to prep and numerous polyps, tight sigmoid junction PLAN: 1/ cont with once daily PPI-- take MV daily 2/ colonoscopy with suprep--2 d prep 3/ reeval esophagus [facility] Medical History Bleeding hemorrhoids Bradycardia Pulmonary nodules Pneumonitis Adrenal benign neoplasm Morbid obesity Hx of tinnitus Hx of chemical exposure Restrictive lung disease secondary to obesity NORMA (obstructive sleep apnea) GERD (gastroesophageal reflux disease) Surgical History History of esophagogastroduodenoscopy (EGD) (08/20/23) Hx of colonoscopy History of left knee surgery History of esophagogastroduodenoscopy (EGD) History of shoulder surgery Hx of adenoidectomy Social History Household Members: Spouse Housing: House Are you a primary patient care coordinator to a significant other at home: No Do you presently have visiting nurse or other home services: No Alcohol intake: current Alcohol intake frequency: holidays/special occasions only Alcohol type: beer Patient Tobacco Use Status: Former Tobacco user Tobacco use type: Cigarette Years Smoked: 40 e-Cigarette/Vaping Use: Never Used Second Hand Smoke Exposure: No Substance Use Type: Marijuana service: No Current occupational status: employed Current occupation: rt handed/[employer] Cognitive needs: No Hearing needs: No Vision needs: No Telehealth Telehealth Telehealth Platform: Telephone Location of provider rendering services: practice address Location of patient: address on file Patient Identification confirmed using: Name, : Yes Telehealth method: voice only (video not working) Patient verbally consented to treatment: Yes Patient verbally consented to billing insurance company: Yes Patient informed of any privacy concerns related to visit: Yes Minutes spent on Phone/Video with Pt.: 5 Assessment & Plan Assessment & Plan (1) GERD (gastroesophageal reflux disease): Code(s): K21.9 - Gastro-esophageal reflux disease without esophagitis Category: Medical Qualifiers: Esophagitis presence: with esophagitis Esophagitis bleeding: without hemorrhage Qualified Code(s): K21.00 - Gastro-esophageal reflux disease with esophagitis, without bleeding Plan: as above (2) Screening for colon cancer: Code(s): Z12.11 - Encounter for screening for malignant neoplasm of colon Category: Medical Plan: as above Coding Level of Care Code Tele Est Pt Level 3 (83400) Diagnoses Gastroesophageal reflux disease with esophagitis without hemorrhage K21.00 Esophagitis presence: with esophagitis Esophagitis bleeding: without hemorrhage Screening for colon cancer Z12.11
--- OUTSIDE RECORDS SUMMARY | 2024-11-28 08:20 | XMS_ITS | Encounter Summary ---
Author Organization [facility] Address [address] [place] [phone] Phone Care Team Providers Care Criminal Intelligence Analyst Name Role Phone Isiah Mckay NP Primary Care Provider + Encounter Details Date Type Department Care Team (Late st Contact Info) Description 04/22/2018 Procedure Pass [place] Admitting Dept - Virtual Department [address] [place] [address] Social History Tobacco Use Types Packs/Day Years [...] on filedocumented in this encounter Care Teams Criminal Intelligence Analyst Relationship Specialty Start Date End Date Isiah Mckay NP [address] [place] [address] PCP - General Family Medicine 04/13/18 documented as of this encounter Additional Source Comments The information contained in this document represents components of the legal health record. It is not the complete legal health record.[facility]
== END 2024-11-28 10:07 | disposition home or self-care (01) ==
LOC: HO.HGI 08:10
PROVIDERS: PCP Nurse Practitioner Family; Visit Provider Internal Medicine Gastroenterology
DX: Z01.818 Encounter for other preprocedural examination (principal); Z12.11 Encounter for screening for malignant neoplasm of colon; K21.00 Gastro-esophageal reflux disease with esophagitis, without bleeding
CPT/HCPCS: 99213

== ENCOUNTER 2024-12-29 06:32 | Day surgery (SDC) | payer OTHER, SELFPAY ==
--- OUTSIDE RECORDS SUMMARY | 2024-12-02 13:57 | XMS_ITS | Encounter Summary ---
Author Organization [facility] Address [address] [place] [phone] Phone Care Team Providers Care Orthodontic Technician Name Role Phone Isiah Mckay NP Primary Care Provider + Encounter Details Date Type Department Care Team (Late st Contact Info) Description 04/22/2018 Procedure Pass OR Admitting Dept - Virtual Department [address] [place] [address] Social History Tobacco Use Types Packs/Day Years [...] on filedocumented in this encounter Care Teams Orthodontic Technician Relationship Specialty Start Date End Date Isiah Mckay NP 1959 [facility] [address] [place] [address] PCP - General Family Medicine 04/13/18 documented as of this encounter Additional Source Comments The information contained in this document represents components of the legal health record. It is not the complete legal health record.[facility]
--- OUTSIDE RECORDS SUMMARY | 2024-12-02 13:59 | XMS_ITS | Clinical Summary ---
Author Organization [facility] Address [address] [place] [phone] Phone Care Team Providers Care Master In Chancery Name Role Phone Isiah Mckay NP Primary [...] topic Medical Devices Not on file Insurance [facility] Care Teams Master In Chancery Relationship Specialty Start Date End Date Isiah Mckay NP [address] [place] [address] PCP - General Family Medicine 04/13/18 Additional Source Comments The information contained in this document represents components of the legal health record. It is not the complete legal health record.[facility]
--- NOTE | 2024-12-27 09:14 | HO.ANESPROP2 ---
Documented by User: Emily Dwyer NP 12/27/24 09:23 HPI - Anesthesia Eval Consult details Narrative: 59 yr old male for Upper Endoscopy and Colonoscopy s/p colonoscopy with MAC 05/2024 Morbid obesity: BMI 42 Marijuana use NORMA: not on CPAP Follows [facility] PCP, echo ordered at 11/24/24 visit for systolic murmur heard on exam. Pt is physically active daily, no CP or SOB. Denies any respiratory concerns. Saw [facility] pulmo in past for complications after chlorine exposure; all symptoms have resolved per pt. [facility] Active Problems Active Problems: All Active Problems (Updated 11/24/24 @ 15:03 by Isiah Mckay, [facility]) Smoker (Acute) HTN (hypertension) (Acute) Systolic murmur (Acute) Vitamin D deficiency (Acute) Constipation (Acute) Hemorrhoid (Acute) Low back pain (Acute) URI, acute (Acute) Encounter for routine adult physical exam with abnormal findings (Acute) Cough (Acute) Screening for colon cancer (Acute) Lipoma (Acute) Screening for prostate cancer (Acute) Physical exam (Acute) Tear of medial meniscus of left knee (Acute) Aspiration pneumonia (Acute) Abnormal CT scan, chest (Acute) Pulmonary aspiration of gastric contents (Acute) Pneumonia (Acute) Left knee pain (Acute) Muscle spasm (Acute) Flank pain (Acute) GERD without esophagitis (Acute) Bleeding hemorrhoids (Acute) Pulmonary nodules (Acute) Pneumonitis (Acute) Adrenal benign neoplasm (Acute) Morbid obesity (Acute) NORMA (obstructive sleep apnea) (Acute) Restrictive lung disease secondary to obesity (Acute) GERD (gastroesophageal reflux disease) (Acute) Past Medical History Medical History Bleeding hemorrhoids Bradycardia Pulmonary nodules Pneumonitis Adrenal benign neoplasm Morbid obesity Hx of tinnitus Hx of chemical exposure Restrictive lung disease secondary to obesity NORMA (obstructive sleep apnea) GERD (gastroesophageal reflux disease) Family History Family history of problems with anesthesia: No Surgical History Surgical History Hx of excision of mass History of esophagogastroduodenoscopy (EGD) (08/20/23) Hx of colonoscopy History of left knee surgery History of esophagogastroduodenoscopy (EGD) History of shoulder surgery Hx of adenoidectomy History of Problems with Anesthesia: No Social History Social History Household Members: Spouse Housing: House Are you a primary direct care worker to a significant other at home: No Do you presently have visiting nurse or other home services: No Alcohol intake: current Alcohol intake frequency: holidays/special occasions only Alcohol type: beer Patient Tobacco Use Status: Former Tobacco user Tobacco use type: Cigarette Years Smoked: 40 e-Cigarette/Vaping Use: Never Used Second Hand Smoke Exposure: No Substance Use Type: Marijuana Substance Use Frequency: Occasionally Have you been hit, kicked, punched, or otherwise hurt by someone within the past year? If so, by whom?: No Are you DNR?: No Advance Directives: No Advance Directives Information Provided: Yes service: No Current occupational status: employed Current occupation: rt handed/[employer] Cognitive needs: No Hearing needs: No Vision needs: No Meds Allergies Allergy/AdvReac Type Severity Reaction Status Date / Time No Known Allergies Allergy Verified 12/29/24 06:45 Assessment and Plan Final Anesthetic Review Family History of Problems with Anesthesia: No History of Problems with Anesthesia: No Documented by User: Rosalina Cowan MD 12/29/24 08:42 [facility] Past Medical History Medical History Bleeding hemorrhoids Bradycardia Pulmonary nodules Pneumonitis Adrenal benign neoplasm Morbid obesity Hx of tinnitus Hx of chemical exposure Restrictive lung disease secondary to obesity NORMA (obstructive sleep apnea) GERD (gastroesophageal reflux disease) Surgical History Surgical History Hx of excision of mass History of esophagogastroduodenoscopy (EGD) (08/20/23) Hx of colonoscopy History of left knee surgery History of esophagogastroduodenoscopy (EGD) History of shoulder surgery Hx of adenoidectomy Social History Social History Household Members: Spouse Housing: House Are you a primary direct care worker to a significant other at home: No Do you presently have visiting nurse or other home services: No Alcohol intake: current Alcohol intake frequency: holidays/special occasions only Alcohol type: beer Patient Tobacco Use Status: Former Tobacco user Tobacco use type: Cigarette Years Smoked: 40 e-Cigarette/Vaping Use: Never Used Second Hand Smoke Exposure: No Substance Use Type: Marijuana Substance Use Frequency: Occasionally Have you been hit, kicked, punched, or otherwise hurt by someone within the past year? If so, by whom?: No Are you DNR?: No Advance Directives: No Advance Directives Information Provided: Yes service: No Current occupational status: employed Current occupation: rt handed/[employer] Cognitive needs: No Hearing needs: No Vision needs: No Meds Allergies Allergy/AdvReac Type Severity Reaction Status Date / Time No Known Allergies Allergy Verified 12/29/24 06:45 Exam Airway Mallampati Class: III TM Dist: <=3cm Neck ROM: Limited Heart: rrr Lungs: cta Assessment and Plan Assessment Anesthesia Assessment: Anesthesia Plan Discussed and Chart Reviewed Final Anesthetic Review NPO: Yes ASA Class: III Final Preanesthetic Review: No Changes in Pt Med Stat, Meds/Allgs Chart Reviewed, Consent Obtained/Reviewed and Anes Risks/Benef Reviewed Patient Risk: Intermediate Procedure Risk: Low Anesthetic Plan Anesthetic Plan: GA (morbid obesity, smoker, marihuana use, difficult airway.) and Agree w/ Assess. and Plan Disposition: Standard PACU
[2024-12-27 13:30] VITALS: BMI 41.8
[2024-12-29 06:46] VITALS: BMI 40.6
[2024-12-29] MEDS: Lactated Ringers 1,000 ML 100 ML IVCONT (06:59)
[2024-12-29 07:06] VITALS: BP 150/67; PULSE 55; RESP 18; TEMP 36.7; O2SAT 97
--- NOTE | 2024-12-29 07:41 | P.HPSUR_ITS ---
Pre-Procedural Eval Section A - 24 Hr Update-Section A only Date of Service: 12/29/24 Section B - Complete if H&P > 30 days Chief Complaint: gerd,screening Relevant Family History (Specify if Yes): No Relevant Social History: Other (specify) Present Medications: see Short Stay Collaborative assessment Medical History: Significant History (Bleeding hemorrhoids Bradycardia Pulmonary nodules Pneumonitis Adrenal benign neoplasm Morbid obesity Hx of tinnitus Hx of chemical exposure Restrictive lung disease secondary to obesity NORMA (obstructive sleep apnea) GERD (gastroesophageal reflux disease)) History of Previous Operations: Relevant previous surgery/procedure and date(s) (Hx of excision of mass History of esophagogastroduodenoscopy (EGD) (08/20/23) Hx of colonoscopy History of left knee surgery History of esophagogastroduodenoscopy (EGD) History of shoulder surgery Hx of adenoidectomy) Allergies: Allergies Allergy/AdvReac Type Severity Reaction Status Date / Time No Known Allergies Allergy Verified 12/29/24 06:45 Review of Systems Sugical H&P ROS: Negative: Constitution, Cardiovascular, Respiratory, Neurological, Psychiatric, Hem-Onc, Allergic/Immunologic, Gastrointestinal, Genitourinary, Musculoskeletal, Integumentary, Endocrine and Eyes /Ears/Nose/Throat Exam Surgical H&P Exam: Normal: HEENT, Normal: Heart, Normal: Lungs, Normal: Extremities, Normal: Abdomen, Normal: Skin and Normal: Neurological Plan Diagnosis/Plan: Unchanged I have reviewed the history and physical and performed a pertinent physical examination on my patient. No changes have occurred unless specified. Time Spent With Patient Time: Total time managing care of this patient today ____ minutes.
--- NOTE | 2024-12-29 08:26 | HO.OPN-COLON ---
Colonoscopy Operative Note Operative Note Date of Service: 12/29/24 Narrative: Operative Information Procedure Description: EGD, Colonoscopy Indication: GERD, hx of colon polyps Anesthesia: GA FLEXIBLE TRANSORAL UPPER GASTROINTESTINAL ENDOSCOPY AND COLONOSCOPY PROCEDURE NOTE UPPER ENDOSCOPY Consent: Indications for the procedure and potential complications of bleeding, perforation, reaction to medications and missed diagnosis were discussed with the patient and informed consent was obtained. Instrument: Olympus GIF H 190 J mid size upper endoscope Monitoring: Vital signs and clinical assessment, continuous EKG monitoring, Pulse oximetry, Carbon Dioxide monitoring and blood pressure monitoring were done throughout the procedure. Procedure: The patient was placed in the left lateral decubitis position and pre-procedure medications were administered and a bite block was placed. The endoscope was inserted into the mouth and advanced under direct vision to the third part of duodenum. A careful inspection was made as the upper endoscope was withdrawn including a retroflexed examination of the proximal stomach; Findings and interventions are described below. Findings: Larynx:normal Esophagus: GE junction at 42 cm, diaphragm hiatus at 42 cm, one small linear erosion noted Stomach: Normal mucosa. Grade 2 flap valve on retroflexed examination of the cardia. Duodenum: Normal bulb and descending duodenum, Intervention: none COLONOSCOPY Instrument: Olympus variable stiffness pediatric scope 190L Colonoscopy Monitoring: Vital signs and clinical assessment, continuous EKG monitoring, Pulse oximetry, Carbon Dioxide monitoring and blood pressure monitoring were done throughout the procedure. Colon withdrawal time was 10 minutes. Procedure: The patient was placed in the left lateral decubitis position and pre-procedure medications were administered. After a digital rectal examination of the ano-rectum, the video colonoscope was inserted into the rectum and advanced through the colon to the cecum/TI. The colonoscope was slowly withdrawn in a retrograde panoramic fashion and the colon mucosa was carefully examined including a retroflexed view of the rectum. Findings and interventions are described below. Procedure Difficulty:moderate Findings: Terminal Ileum-normal Cecum:normal Right sided retroflexion- normal Ascending Colon: x 2 sessile polyps removed with cold snare Transverse Colon -normal Descending Colon: prominent granular appearing fold - cold bx taken, also 5-7 mm sessile polyp removed with cold forceps Sigmoid Colon: normal, tight junction and turn noted as before Rectum: Retroflexion with medium sized internal hemorrhoids, grade I, 4-6 mm sessile poylp removed with cold forceps Anorectum - normal Colon preparation: [place] Bowel Preparation Scale Right colon; 2 Transverse colon: 2 Left colon; 2 (0 = Unprepared colon segment with mucosa not seen due to solid stool that cannot be cleared. 1 = Portion of mucosa of the colon segment seen, but other areas of the colon segment not well seen due to staining, residual stool and/or opaque liquid. 2 = Minor amount of residual staining, small fragments of stool and/or opaque liquid, but mucosa of colon segment seen well. 3 = Entire mucosa of colon segment seen well with no residual staining, small fragments of stool or opaque liquid) Impression and Post Procedure Diagnosis: Endoscopy Findings: mild esophagitis Colonoscopy Findings: colon polyps x 4 internal hemorrhoids Plan: Await Pathology results Repeat Colonoscopy in 3 years due to polyps or earlier if clinically indicated High fiber diet leaflet avoid straining at stool, epsom salts and sitz bath, anusol supps or cream consider adding famotidine at night, GERD precautions Above findings were reviewed with the patient and relevant handouts were provided if indicated.
[2024-12-29 08:35] VITALS: BP 107/59; PULSE 81; RESP 18; TEMP 36.3; O2SAT 93
[2024-12-29 08:45] VITALS: BP 98/57; PULSE 79; RESP 18; O2SAT 94
[2024-12-29 09:00] VITALS: BP 120/61; PULSE 61; RESP 16; TEMP 36.4; O2SAT 96
== END 2024-12-29 09:25 | disposition home or self-care (01) ==
PROVIDERS: PCP Nurse Practitioner Family; Visit Provider Internal Medicine Gastroenterology
PROC: (CPT 45385; principal; 2024-12-29 07:30)
DX: Z12.11 Encounter for screening for malignant neoplasm of colon (principal); Z86.0101 Personal history of adenomatous and serrated colon polyps; D12.2 Benign neoplasm of ascending colon; D12.4 Benign neoplasm of descending colon; K62.1 Rectal polyp; K57.30 Diverticulosis of large intestine without perforation or abscess without bleeding; K64.0 First degree hemorrhoids; K21.00 Gastro-esophageal reflux disease with esophagitis, without bleeding; K44.9 Diaphragmatic hernia without obstruction or gangrene; R91.8 Other nonspecific abnormal finding of lung field; R00.1 Bradycardia, unspecified; E66.2 Morbid (severe) obesity with alveolar hypoventilation; J98.4 Other disorders of lung; Z79.899 Other long term (current) drug therapy; Z87.891 Personal history of nicotine dependence; Z77.098 Contact with and (suspected) exposure to other hazardous, chiefly nonmedicinal, chemicals; Z98.890 Other specified postprocedural states
CPT/HCPCS: 45385; 45380; 43235; 88305; J0330; J1100; J2003; J2405; J2704; J3010

== ENCOUNTER → 2024-12-29 06:32 | Outpatient (BNV) | payer OTHER, SELFPAY | PROVIDERS: PCP Nurse Practitioner Family; Visit Provider Internal Medicine Gastroenterology | DX: Z12.11 Encounter for screening for malignant neoplasm of colon (principal); D12.2 Benign neoplasm of ascending colon; D12.4 Benign neoplasm of descending colon; D12.8 Benign neoplasm of rectum; K64.0 First degree hemorrhoids; K21.00 Gastro-esophageal reflux disease with esophagitis, without bleeding | CPT/HCPCS: 43235; 45380; 45385 ==

== ENCOUNTER 2025-02-01 10:23 | Outpatient (AMB) | payer OTHER, SELFPAY ==
--- NOTE | 2025-02-01 10:28 | AM.OFFWIN_ITS ---
Intake Vital Signs 02/01/25 10:31 02/01/25 14:45 Height 5 ft 11 in BMI Reason not done Patient refused/unable BP 170/82 H 150/89 H Blood Pressure Location Rt brachial Position Sitting Pulse 81 Pulse Source Pulse Oximeter Temp 98.3 F Temp Source Oral Pulse Oximetry (%) 97 Oxygen Delivery Method Room Air Comment High BP:Pt reports extreme pain to LT knee after falling Intake Visit Reasons: EP Left knee injury after slipping on ice Intake Note: pt presents with left knee pain with open wound after slipping on ice today Patient Tobacco Use Status: Former Tobacco user Allergies No Known Allergies Allergy (Verified 02/01/25 10:31) Medication List - Last Reconciled 02/01/25 by Vicki Nunes MD famotidine 40 mg PO BEDTIME losartan 25 mg PO DAILY pantoprazole 40 mg PO DAILY Do you need a note to return to daycare/school/sports/work: No HPI EP Left knee injury after slipping on ice HPI Details History of Present Illness The patient is a 59 year old male presenting with a left knee injury after a fall on ice. Left knee injury: - The patient sustained an injury to his left knee after slipping and falling on ice at his house approximately 30-40 minutes prior to the visit. - He reports pain on the left side of th e knee and all around it, and is unable to stand on the leg. - There is an associated superficial abr asion on the knee. Hypertension: - An elevated blood pressure reading was noted during the visit, which was thought to be secondary to nervousness from the fall. Tetanus Immunization: - The patient's last tetanus vaccine was confirmed to be in 2018, which is within the recommended 10-year interval. Medical History: - Tetanus vaccination in 2018. Diagnostic Results: - Left Knee X-ray: No fracture identifie d. Problem List - Left knee injury - Abrasion of left knee - Elevated blood pressure reading - Preventative care: Tetanus immunizatio n status reviewed Plan - The superficial abrasion on the left k nee is to be cleaned with saline and an antiseptic solution. - An X-ray of the left knee was ordered to evaluate for a fracture. - Knee was placed in a splint. - The patient will be started on NSAIDs for pain management. - The patient was educated that pain is expected to worsen tomorrow. - The patient is advised to follow up wi th his primary care provider. - Tetanus immunization is up to date and no booster is required. Xray report showed tibial Pleatue fracture, Patient was notifed and stat ref is placed for Ortho Patient is to return [facility] for follow up here for skin abrasions Review of Systems - General: No fever no chills - Neurological: No headaches no dizziness - Ear nose throat: No sore throat no hearing difficulty no ear pain - Cardiovascular: No syncope, no chest pain, no palpitations - Gastrointestinal: No nausea vomiting or diarrhea Physical Exam General: No acute distress, sitting in wheel chair HEENT: No acute findings Neck: Supple Respiratory system: Able to talk in full sentences, no audible wheeze Cardiovascular: S1-S2 regular in rate and rhythm Gastrointestinal: No pain Extremities: Abrasion on the left knee three placed , patient unable to stand on it, limited movement, knee swollen and tender laterally with pressure CONTROLLED ATMOSPHERIC FURNACE BRAZER: Alert awake oriented x3 motor intact Skin: Normal turgor PFSH Medical History Bleeding hemorrhoids Bradycardia Pulmonary nodules Pneumonitis Adrenal benign neoplasm Morbid obesity Hx of tinnitus Hx of chemical exposure Restrictive lung disease secondary to obesity NORMA (obstructive sleep apnea) GERD (gastroesophageal reflux disease) Surgical History Hx of excision of mass History of esophagogastroduodenoscopy (EGD) (08/20/23) Hx of colonoscopy History of left knee surgery History of esophagogastroduodenoscopy (EGD) History of shoulder surgery Hx of adenoidectomy Social History Household Members: Spouse Housing: House Are you a primary director critical care to a significant other at home: No Do you presently have visiting nurse or other home services: No Alcohol intake: current Alcohol intake frequency: holidays/special occasions only Alcohol type: beer Patient Tobacco Use Status: Former Tobacco user Tobacco use type: Cigarette Years Smoked: 40 e-Cigarette/Vaping Use: Never Used Second Hand Smoke Exposure: No Substance Use Type: Marijuana service: No Current occupational status: employed Current occupation: rt handed/[employer] Cognitive needs: No Hearing needs: No Vision needs: No Physical Exam Vital Signs: Last Vital Signs Temp 98.3 F 02/01/25 10:31 Pulse 81 02/01/25 10:31 BP 170/82 H 02/01/25 10:31 Pulse Ox 97 02/01/25 10:31 Oxygen Delivery Method Room Air 02/01/25 10:31 Assessment & Plan Assessment & Plan (1) Tibial plateau fracture, left: Code(s): S82.142A - Displaced bicondylar fracture of left tibia, initial encounter for closed fracture Qualifiers: Encounter type: initial encounter Fracture type: closed Qualified Code(s): S82.142A - Displaced bicondylar fracture of left tibia, initial encounter for closed fracture (2) Fall due to slipping on ice or snow: Code(s): W00.9XXA - Unspecified fall due to ice and snow, initial encounter Qualifiers: Encounter type: initial encounter Qualified Code(s): W00.9XXA - Unspecified fall due to ice and snow, initial encounter (3) Skin abrasion: Code(s): T14.8XXA - Other injury of unspecified body region, initial encounter (4) Elevated blood pressure reading: Code(s): R03.0 - Elevated blood-pressure reading, without diagnosis of hypertension Plan Problem List - Left knee injury - Abrasion of left knee - Elevated blood pressure reading - Preventative care: Tetanus immunization status reviewed Plan - The superficial abrasion on the left knee is to be cleaned with saline and an antiseptic solution. - An X-ray of the left knee was ordered to evaluate for a fracture. - Knee was placed in a splint. - The patient will be started on NSAIDs for pain management. - The patient was educated that pain is expected to worsen tomorrow. - The patient is advised to follow up with his primary care provider. - Tetanus immunization is up to date and no booster is required. Xray report showed tibial Pleatue fracture, Patient was notifed and stat ref is placed for Ortho Patient is to return [facility] for follow up here for skin abrasions Orders: Referrals Orthopedics Referral S82.142A - Displaced bicondylar fracture of left tibia, initial encounter for closed fracture Medications: New diclofenac sodium take it with food 75 mg PO BID 20 tabs 0RF pain 10 days Coding Level of Care Code Est Pt Level 5 (93484) Diagnoses Closed fracture of left tibial plateau, initial encounter S82.142A Encounter type: initial encounter Fracture type: closed Fall due to slipping on ice or snow, initial encounter W00.9XXA Encounter type: initial encounter Skin abrasion T14.8XXA Elevated blood pressure reading R03.0 Time Spent (min) 43 Comment face to face / X ray/ coordination of care
[2025-02-01 10:31] VITALS: BP 170/82; PULSE 81; TEMP 36.8; O2SAT 97
--- OUTSIDE RECORDS SUMMARY | 2025-02-01 10:33 | XMS_ITS | Clinical Summary ---
Author Organization [facility] Address [address] [place] [address] Phone Care Team Providers Care Licensing Registration Examiner Name Role Phone Isiah Mckay NP Primary [...] topic Medical Devices Not on file Insurance [facility] Care Teams Licensing Registration Examiner Relationship Specialty Start Date End Date sIiah Mckay NP [address] [facility] [place] [address] PCP - General Family Medicine 04/13/18 Additional Source Comments The information contained in this document represents components of the legal health record. It is not the complete legal health record.[facility]
--- OUTSIDE RECORDS SUMMARY | 2025-02-01 10:33 | XMS_ITS | Encounter Summary ---
Author Organization [facility] Address [address] [place] [phone] Phone Care Team Providers Care Die Try Out Worker Name Role Phone Isiah Mckay NP Primary Care Provider + Encounter Details Date Type Department Care Team (Late st Contact Info) Description 04/22/2018 Procedure Pass OR Admitting Dept - Virtual Department [address] [place] [address] Social History Tobacco Use Types Packs/Day Years [...] on filedocumented in this encounter Care Teams Die Try Out Worker Relationship Specialty Start Date End Date Isiah Mckay NP 1959 [facility] [address] [place] [address] PCP - General Family Medicine 04/13/18 documented as of this encounter Additional Source Comments The information contained in this document represents components of the legal health record. It is not the complete legal health record.[facility]
[2025-02-01 14:45] VITALS: BP 150/89
== END 2025-02-01 11:20 | disposition home or self-care (01) ==
PROVIDERS: PCP Nurse Practitioner Family; Visit Provider Internal Medicine
DX: S82.142A Displaced bicondylar fracture of left tibia, initial encounter for closed fracture (principal); W00.9XXA Unspecified fall due to ice and snow, initial encounter; T14.8XXA Other injury of unspecified body region, initial encounter; R03.0 Elevated blood-pressure reading, without diagnosis of hypertension

== ENCOUNTER 2025-02-01 10:23 | Outpatient (REF) | payer OTHER, SELFPAY ==
--- NOTE | ~2025-02-01 | XR_ITS ---
EXAMINATION: XR KNEE, LEFT CLINICAL INFORMATION: Left knee pain, injury. COMPARISON: Radiographs on May 11, 2020 TECHNIQUE: Four views of the left knee. FINDINGS: Contour irregularity of the lateral aspect of the lateral tibial plateau with discontinuity of the cortex, new from previous exam. Tiny calcification projecting just superior to presumed fabella on the frontal view appears new from previous exam, suggesting age indeterminate injury of the lateral collateral ligament. Normal alignment. Mild narrowing of the medial femorotibial compartment. Posterior patellar spur. Small suprapatellar joint effusion. XR/XR knee LT 4V IMPRESSION: Findings suggestive of comminuted fracture of the lateral tibial plateau. Secured text message sent to the ordering provider at the time of this report. Awaiting read confirmation. Electronically signed by: Neema Mack MD 02/01/2025 11:33 AM [facility]
== END 2025-02-01 10:24 | disposition home or self-care (01) ==
LOC: HO.HMGCX 10:23
PROVIDERS: PCP Nurse Practitioner Family; Visit Provider Internal Medicine
DX: S82.142A Displaced bicondylar fracture of left tibia, initial encounter for closed fracture (principal); W00.0XXA Fall on same level due to ice and snow, initial encounter; Y92.009 Unspecified place in unspecified non-institutional (private) residence as the place of occurrence of the external cause; Y93.9 Activity, unspecified; Y99.9 Unspecified external cause status; R03.0 Elevated blood-pressure reading, without diagnosis of hypertension
CPT/HCPCS: 73564

== ENCOUNTER → 2025-02-01 10:57 | Outpatient (BNV) | payer OTHER, SELFPAY | PROVIDERS: PCP Nurse Practitioner Family; Visit Provider Radiology Body Imaging | DX: M25.562 Pain in left knee (principal) | CPT/HCPCS: 73564 ==